=== PATIENT | male | born 1955 | race Caucasian/White ===

== ENCOUNTER → 2016-07-13 | Day surgery (SDC) | payer BC ==
[2016-07-02 07:36] VITALS: Ht 165.1 cm; Wt 100.0 kg
[~2016-07-13] VITALS: Ht 165.1 cm; Wt 100.0 kg
[~2016-07-13] MED LIST: AMLO-110 PO; ATOR-22 PO; ATROPINE SULFATE 0.1 MG/ML 5ML SYR IV PRN; EpHEDrine SULFATE INJ 50 MG/ML AMP IV PRN; IBUP-1050 PO; LIDOCAINE HCL 2% 2 ML VIAL (20MG/ML) ONE; LOSA1TAB38 PO; METF500T5 PO; PROAIR INH; PROPOFOL IV EMULSION 10 MG/ML 20 ML VIAL IV ONE
--- NOTE | 2016-07-13 14:49 | Endo History and Physical ---
History & Physical Date of Service: Jul 13, 2016. Chief Complaint: history of polyps Referring Physician: Dr Martinez History of Present Illness For colonoscopy Past Surgical History Hx Cardiac Surgery: Yes (HEART SURGERY A CHILD) Hx Internal Defibrillator: No Hx Pacemaker: No Hx Abdominal Surgery: No Hx of Implantable Prosthesis: No Hx Post-Op Nausea and Vomiting: No Hx Cancer Surgery: No Hx Thoracic Surgery: No Hx Orthopedic: Yes (RT CTR, RT ULNAR NERVE REPAIR) Hx Urinary Tract Surgery: No Family History Colon CA, Esophogeal CA Social History Smoking Status: Never Smoker Hx Substance Use: No Hx Alcohol Use: Yes (OCCASIONAL) Allergies Coded Allergies: No Known Allergies (Unverified , 07/02/16) Current Medications Reported Home Medications Medications Dose Route/Sig Max Daily Dose Days Date Category Advil (Ibuprofen) 200 Mg Tab 400-600 Mg PO Q6H PRN 07/02/16 Reported [Proair] 1-2 Puffs INH Q4-6 PRN 07/02/16 Reported Norvasc (Amlodipine Besylate) 5 Mg Tab 5 Mg PO QAM 07/02/16 Reported Lipitor (Atorvastatin Calcium) 20 Mg Tab 20 Mg PO HS 07/02/16 Reported Cozaar (Losartan Potassium) 100 Mg Tab 100 Mg PO QAM 07/02/16 Reported Glucophage Er (Metformin HCl) 500 Mg Tab 2 Tab PO BID 07/02/16 Reported Vital Signs Weight (Kilograms): 100 Height (Feet): 5 Height (Inches): 5 Date Time Temp Pulse Resp B/P Pulse Ox O2 Delivery O2 Flow Rate FiO2 07/13/16 14:29 36.3 76 18 134/81 97 Room Air Physical Exam General Appearance: + obese Respiratory/Chest: Respiratory effort: no dyspnea Cardiovascular: Heart Auscultation: RRR Abdomen: Inspection & Palpation: soft Assessment and Plan Hx of polyps for Colonoscopy
--- NOTE | 2016-07-13 15:05 | Discharge Instructions ---
Endoscopy Patient Instructions Date / Procedure(s) Performed Jul 13, 2016. Colonoscopy Allergy Information Coded Allergies: No Known Allergies (Unverified , 07/02/16) Discharge Date / Findings Jul 13, 2016. Normal colon Medication Instructions Restart Stopped Medication(s): resume meds Reported Home Medications Medications Dose Route/Sig Max Daily Dose Days Date Category Advil (Ibuprofen) 200 Mg Tab 400-600 Mg PO Q6H PRN 07/02/16 Reported [Proair] 1-2 Puffs INH Q4-6 PRN 07/02/16 Reported Norvasc (Amlodipine Besylate) 5 Mg Tab 5 Mg PO QAM 07/02/16 Reported Lipitor (Atorvastatin Calcium) 20 Mg Tab 20 Mg PO HS 07/02/16 Reported Cozaar (Losartan Potassium) 100 Mg Tab 100 Mg PO QAM 07/02/16 Reported Glucophage Er (Metformin HCl) 500 Mg Tab 2 Tab PO BID 07/02/16 Reported Provider Instructions Activity Restrictions - No exercising or heavy lifting for 24 hours. - Do not drink alcohol the day of the procedure. - Do not drive a car or operate machinery until the day after the procedure. - Do not make any important decisions or sign important papers in 24 hours after the procedure. Following Day: - Return to full activity which may include returning to work/school. Diet Start your diet with liquids and light foods (jello, soup, juice, toast). Then eat your usual diet if not nauseated. Treatment For Common After Affects For mild abdominal pain, bloating, or excessive gas: - Rest - Eat lightly - Lie on right side Follow-Up Information Follow-up with Dr Martinez as scheduled Anesthesia Information What You Should Know You have had a procedure that required some medicine to reduce anxiety and discomfort. This treatment is called moderate sedation. After receiving the treatment, you may be sleepy, but you will be able to breathe on your own. The effects of the treatment may last for several hours. Follow these instructions along with Activity/Diet recommendations noted above: * Do NOT do anything where dizziness or clumsiness would be dangerous. * Rest quietly at home today, then you can be up and about tomorrow. * Have a responsible person stay with you the rest of today. * You may have had an I.V. today. If so, you may take the dressing off later today. Recommendations Call your doctor if: * Trouble breathing * Continuous vomiting for more than 24 hours * Temperature above 101 degrees * Severe abdominal pain or bloating * Pain not relieved by pain medicine ordered * There is increased drainage or redness from any incision * A large amount of rectal bleeding greater than 2-3 tablespoons. (If you had a polyp/s removed or have hemorrhoids, a small amount of blood - from the rectum is to be expected.) * You have any unanswered questions or concerns. IN THE EVENT OF A SERIOUS EMERGENCY, GO TO THE NEAREST EMERGENCY ROOM Your discharge instructions were prepared by provider Thang Salinas. Patient Instructions Signature Page Michael Fink Patient (or Guardian) Signature/Date: I have read and understand the instructions given to me by my caregivers. Caregiver/RN/Doctor Signature/Date: The above-named patient and/or guardian has received patient instructions on this date. + Original Patient Signature Page (only) stays with chart. Please make copy for patient.
--- NOTE | 2016-07-13 15:10 | GI REPORT ---
Procedure Date: 07/13/2016 2:53 PM Procedure: Colonoscopy Indications: Personal history of colonic polyps Medicines: Propofol total dose 200 mg IV, Lidocaine 40 mg IV Complications: No immediate complications. Estimated Blood Loss: Estimated blood loss: none. Procedure: Pre-Anesthesia Assessment: - Prior to the procedure, a History and Physical was performed, and patient medications, allergies and sensitivities were reviewed. The patient's tolerance of previous anesthesia was reviewed. - The risks and benefits of the procedure and the sedation options and risks were discussed with the patient. All questions were answered and informed consent was obtained. After I obtained informed consent, the scope was passed under direct vision. Throughout the procedure, the patient's blood pressure, pulse, and oxygen saturations were monitored continuously. The scope was introduced through the anus and advanced to the cecum, identified by appendiceal orifice and ileocecal valve. The colonoscopy was performed without difficulty. The patient tolerated the procedure well. The quality of the bowel preparation was good. Findings: There was a medium-sized lipoma, 12 mm in diameter, in the ascending colon. Impression: - The entire examined colon is normal. - No specimens collected. - Medium-sized lipoma in the ascending colon. Recommendation: - Discharge patient to home (ambulatory). - Continue present medications. - Repeat colonoscopy in 5 years for surveillance. - Return to primary care physician PRN. Thang Salinas M.D. Thang Salinas MD 07/13/2016 3:09:23 PM This report has been signed electronically. Note Initiated On: 07/13/2016 2:53 PM
--- NOTE | 2016-07-13 15:14 | Anesthesiology Progress Note ---
Anesthesia Post Op Note Date & Time Jul 13, 2016 at 15:13 Vital Signs Pain Intensity: 0 Vital Signs Past 12 Hours Date Time Temp Pulse Resp B/P Pulse Ox O2 Delivery O2 Flow Rate FiO2 07/13/16 14:29 36.3 76 18 134/81 97 Room Air Notes Mental Status: alert / awake / arousable, participated in evaluation Pt Amnestic to Procedure: Yes Nausea / Vomiting: adequately controlled Pain: adequately controlled Airway Patency, RR, SpO2: stable & adequate BP & HR: stable & adequate Hydration State: stable & adequate Anesthetic Complications: no major complications apparent
[2016-07-13 15:29] VITALS: BP 110/67; PULSE 84; O2SAT 95
== END | disposition home or self-care (01) ==
LOC: C.GI 14:04
PROVIDERS: ATTEND Internal Medicine Gastroenterology
DX: Z86.010 Personal history of colon polyps (principal); D17.79 Benign lipomatous neoplasm of other sites; I10 Essential (primary) hypertension; J45.909 Unspecified asthma, uncomplicated; E78.5 Hyperlipidemia, unspecified; E11.9 Type 2 diabetes mellitus without complications; Z98.890 Other specified postprocedural states; Z80.0 Family history of malignant neoplasm of digestive organs; E66.9 Obesity, unspecified; Z68.42 Body mass index [BMI] 45.0-49.9, adult

== ENCOUNTER → 2016-07-16 | Outpatient (CLI) | payer BC ==
[~2016-07-16] MED LIST changes: -ATROPINE SULFATE 0.1 MG/ML 5ML SYR IV PRN; -EpHEDrine SULFATE INJ 50 MG/ML AMP IV PRN; -LIDOCAINE HCL 2% 2 ML VIAL (20MG/ML) ONE; -PROPOFOL IV EMULSION 10 MG/ML 20 ML VIAL IV ONE
--- NOTE | 2016-07-16 10:03 | DIAGNOSTIC IMAGING REPORT ---
TWO VIEW CHEST CLINICAL HISTORY: Cough. Abdominal swelling. FINDINGS: PA and lateral chest radiographs are compared to study dated 06/02/2012. The heart is top normal for projection. The mediastinal contour is within normal limits. Chronic interstitial thickening is similar to previous. Patchy airspace opacities are seen at the left lung base. No pleural effusion is identified. There is no pneumothorax. The skeletal structures are osteopenic. There are healed left-sided rib fractures. Degenerative change is noted throughout the thoracic spine. IMPRESSION: There are patchy airspace opacities at the left lung base. Correlate clinically for evidence of an infectious or inflammatory pneumonitis. Radiographic follow-up to resolution is recommended. Electronically signed by: Ok Barkley M.D. 07/16/2016 10:01 AM Dictated Date/Time: 07/16/2016 10:00 AM
--- NOTE | 2016-07-16 10:05 | DIAGNOSTIC IMAGING REPORT ---
ABDOMEN 2 VIEWS CLINICAL HISTORY: Cough, abdominal SWELLING pain. Edema. COMPARISON STUDY: No previous studies for comparison. FINDINGS: The soft tissues, psoas shadows, renal outlines and intestinal gas pattern appear normal. There is no evidence for bowel obstruction. There is no evidence for free intraperitoneal air. No abnormal abdominal calcifications are seen. 1.6 cm calcified splenic artery aneurysm IMPRESSION: No acute process. Electronically signed by: Shaheen Benitez M.D. 07/16/2016 10:03 AM Dictated Date/Time: 07/16/2016 10:02 AM
== END | disposition home or self-care (01) ==
LOC: C.RADBC 09:34
PROVIDERS: ATTEND Nurse Practitioner Adult Health
DX: R05 Cough (principal); R19.00 Intra-abdominal and pelvic swelling, mass and lump, unspecified site; R91.8 Other nonspecific abnormal finding of lung field

== ENCOUNTER → 2016-07-22 | Outpatient (CLI) | payer BC ==
--- NOTE | 2016-07-22 13:33 | DIAGNOSTIC IMAGING REPORT ---
Ultrasound spleen (SPLEEN) ABD [facility] CLINICAL HISTORY: I72.8 Splenic artery aneurysm See abdominal series with splenic a aneurysm TECHNIQUE: Real-time ultrasound COMPARISON STUDY: 07/16/2016 FINDINGS: Spleen is unremarkable and uniform. Has a maximum dimension of 10.5 cm. Aneurysm on plain film is not well seen. IMPRESSION: Nonvisualization of the aneurysm previously seen on plain film. Normal spleen by ultrasound Electronically signed by: Shaheen Benitez M.D. 07/22/2016 1:32 PM Dictated Date/Time: 07/22/2016 1:30 PM
== END | disposition home or self-care (01) ==
LOC: C.ULTR 12:36
PROVIDERS: ATTEND Nurse Practitioner Adult Health
DX: I72.8 Aneurysm of other specified arteries (principal)

== ENCOUNTER → 2016-07-27 | Outpatient (CLI) | payer BC ==
--- NOTE | 2016-07-27 14:05 | DIAGNOSTIC IMAGING REPORT ---
CHEST 2 VIEWS ROUTINE CLINICAL HISTORY: Pneumonitis. COMPARISON STUDY: Chest radiograph July 16, 2016. FINDINGS: Lung volumes are normal. There is no pneumothorax or pleural effusion. There is mild left lower lung interstitial thickening which is probably chronic. No consolidation is identified to suggest pneumonia. Cardiomediastinal silhouette is stable. There is no significant change since exam of June 10, 2012 IMPRESSION: No acute findings. No change in appearance of the chest since exam of June 10, 2012. Electronically signed by: Timothy Salinas M.D. 07/27/2016 2:04 PM Dictated Date/Time: 07/27/2016 2:02 PM
== END | disposition home or self-care (01) ==
LOC: C.RAD1850 13:50
PROVIDERS: ATTEND Nurse Practitioner Adult Health
DX: J18.9 Pneumonia, unspecified organism (principal)

== ENCOUNTER → 2016-08-27 | Outpatient (CLI) | payer BC ==
[~2016-08-27] MED LIST changes: +OPTIRAY 320 IV PRN
--- NOTE | 2016-08-27 12:46 | DIAGNOSTIC IMAGING REPORT ---
ABDOMEN CT WITH IV AND ORAL CONTRAST CT DOSE: 1201.66 mGycm HISTORY: Aneurysm I72.8 Splenic artery aneurysm [id number] TECHNIQUE: Multiaxial CT images of the abdomen was performed following the use of intravenous and oral contrast. COMPARISON STUDY: 08/29/2010 FINDINGS: Lung bases remain clear. Liver is uniform. Gallbladder is negative for distention. Kidneys enhance uniformly. The adrenal glands show minimal hyperplastic change. Spleen is uniform. There is a calcified splenic artery aneurysm unchanged from the prior study at 15 mm. It shows heavy peripheral calcification and is considered stable by CT criteria. Bowel pattern is considered nonobstructive. There is no significant abdominal adenopathy. IMPRESSION: 1. 1.5 cm splenic artery aneurysm unchanged from the prior study of 08/29/2010. 2. This is considered stable with no evidence for interval change. 3. Several small renal cysts. 4. Otherwise negative study abdomen Electronically signed by: Shaheen Benitez M.D. 08/27/2016 12:44 PM Dictated Date/Time: 08/27/2016 12:42 PM
== END | disposition home or self-care (01) ==
LOC: C.CTS 11:47
PROVIDERS: ATTEND Family Medicine
DX: I72.8 Aneurysm of other specified arteries (principal); N28.1 Cyst of kidney, acquired

== ENCOUNTER 2017-07-21 18:00 | Emergency (ER) | payer BC, OTHER ==
[~2017-07-21] VITALS: Ht 165.1 cm; Wt 108.0 kg
[~2017-07-21 18:00] MED LIST changes: -OPTIRAY 320 IV PRN
[2017-07-21 18:05] VITALS: TEMP 36.7; Ht 165.1 cm; Wt 108.0 kg
[2017-07-21] MEDS ORDERED: SODIUM CHLORIDE 0.9% 500ML 500 ML IV STA (18:16)
[2017-07-21] MEDS ORDERED: KETOROLAC TROMETHAMINE 30 MG/ML VIAL IV STA (18:16)
[2017-07-21] MEDS ORDERED: BENZONATATE 100MG CAP PO ONE (18:30)
[2017-07-21] MEDS ORDERED: ASPI81TA28 PO (18:35)
[2017-07-21] MEDS ORDERED: GUAI1TAB55 PO (18:38)
[2017-07-21 18:40] LABS: BASO % 0.3 %; BASO ABS # 0.02 K/uL (0-0.2); EOS % 3.9 %; EOS ABS # 0.23 K/uL (0-0.5); HEMOGLOBIN 14.8 g/dL (14.0-18.0); IG# 0.02 K/uL (0.00-0.02); LYMPH % 14.1 %; LYMPH ABS # 0.84 K/uL (1.2-3.4); MEAN CELL VOLUME 90.3 fL (80-100); MEAN CORPUSCULAR HEMOGLOBIN 31.1 pg (25-34); MEAN CORPUSCULAR HGB CONC 34.4 g/dl (32-36); MEAN PLATELET VOLUME 8.9 fL (7.4-10.4); MONO ABS # 0.71 K/uL (0.11-0.59); NEUT % 69.4 %; NEUT ABS # 4.12 K/uL (1.4-6.5); PLATELET COUNT 151 K/uL (130-400); RED CELL DISTRIBUTION WIDTH CV 12.6 % (11.5-14.5); RED CELL DISTRIBUTION WIDTH SD 41.9 fL (36.4-46.3); WHITE BLOOD COUNT 5.94 K/uL (4.8-10.8)
[2017-07-21 18:56] LABS: BLOOD UREA NITROGEN 16 mg/dl (7-18); CALCIUM 9.2 mg/dl (8.5-10.1); CARBON DIOXIDE 26 mmol/L (21-32); CREATININE 0.89 mg/dl (0.60-1.40); GLUCOSE 127 mg/dl (70-99); POTASSIUM 3.8 mmol/L (3.5-5.1); SODIUM 139 mmol/L (136-145)
[2017-07-21 19:06] LABS: INFLUENZA B ANTIGEN Neg for Influ B (NEG)
--- NOTE | 2017-07-21 19:28 | DIAGNOSTIC IMAGING REPORT ---
CHEST ONE VIEW PORTABLE HISTORY: Atypical Chest Pain COMPARISON: Chest 07/27/2016. FINDINGS: Left basilar interstitial thickening, unchanged. Old, healed left-sided rib fractures. No new focal lung consolidations. The lungs are otherwise clear. No pleural effusions. No pneumothorax. The heart is top normal in size. This remains unchanged. IMPRESSION: No significant change compared to the prior study. No acute process. Electronically signed by: Modesto White M.D. 07/21/2017 7:26 PM Dictated Date/Time: 07/21/2017 7:23 PM
[2017-07-21] MEDS ORDERED: LEVOFLOXACIN 250 MG TAB PO ONE (20:15)
[2017-07-21] MEDS ORDERED: LEVO1TAB35 PO (20:25)
[2017-07-21] MEDS ORDERED: BENZ100C18 PO (20:25)
[2017-07-21 20:33] VITALS: BP 140/88; PULSE 80; O2SAT 95
--- NOTE | 2017-07-21 23:38 | EMERGENCY ROOM VISIT NOTE ---
History Report prepared by Esthela: Mic Hernandez Under the Supervision of: Dr. Neeraj Tinoco D.O. First contact with patient: 18:08 Chief Complaint: FLU LIKE SX Stated Complaint: COUGH, PAINS IN LUNGS AND CHEST History of Present Illness The patient is a 61 year old male who presents to the Emergency Room with complaints of a worsening cough for the past 1-2 weeks. He states that he is additionally having left sided chest pain and right back pain with coughing for the past couple of weeks, though he states that he has no pain when he is not coughing. He notes that he is coughing up green mucous, and occasionally cough up "foamy stuff". The patient reports that his eyes are more watery than normal. He states that he has been taking Mucinex, and nothing has helped him. He has a history of a hernia, and he has some asthma. The patient states that he does not smoke. Pt denies headache, sore throat, ear pain, change in vision, fevers, shortness of breath, nausea, vomiting, diarrhea, pain with urination, and melena. Source of History: patient Onset: 1-2 weeks ago Position: other (global) Quality: other (cough) Timing: worsening Associated Symptoms: + chest pain, + back pain Note: Associated symptoms: Eyes are more watery. Review of Systems See HPI for pertinent positives & negatives. A total of 10 systems reviewed and were otherwise negative. Past Medical & Surgical Medical Problems: (1) Asthma (2) Hernia Family History FH: cancer Social History Smoking Status: Never Smoker Marital Status: single Housing Status: lives with family Occupation Status: employed Current/Historical Medications Scheduled Amlodipine (Norvasc), 5 MG PO QAM Aspirin (Aspirin Ec), 81 MG PO DAILY Atorvastatin (Lipitor), 20 MG PO HS Benzonatate (Tessalon Perles), 100 MG PO TID Guaifenesin Ext Rel (Mucinex Ext Rel), 600 MG PO Q12 Levofloxacin (Levaquin), 750 MG PO QD@08 Losartan Potassium (Cozaar), 100 MG PO QAM Metformin Hcl Er (Glucophage Er), 1,000 MG PO BID Scheduled PRN Ibuprofen (Advil), 400-600 MG PO Q6H PRN for Pain [Proair], 1-2 PUFFS INH Q4-6 PRN for SOB/Wheezing Allergies Coded Allergies: No Known Allergies (Unverified , 07/21/17) Physical Exam Vital Signs Date Time Temp Pulse Resp B/P (MAP) Pulse Ox O2 Delivery O2 Flow Rate FiO2 07/21/17 20:33 80 20 140/88 95 07/21/17 20:33 80 20 140/88 95 Room Air 07/21/17 19:00 78 20 144/79 96 Room Air 07/21/17 18:05 36.7 98 20 140/84 96 Room Air Physical Exam GENERAL: Sitting up in bed with a persistent dry cough, non-toxic, talking in full sentences. EYE EXAM: normal conjunctiva. OROPHARYNX: no exudate, no erythema, lips, buccal mucosa, and tongue normal and mucous membranes are moist NECK: supple, no nuchal rigidity, no adenopathy, non-tender LUNGS: Wheezing in the left lower lobe.. Normal chest wall mechanics HEART: no murmurs, S1 normal and S2 normal ABDOMEN: abdomen soft, non-tender, normo-active bowel sounds, no masses, no rebound or guarding. BACK: Back is symmetrical on inspection and there is no deformity, no midline tenderness, no CVA tenderness. SKIN: no rashes and no bruising UPPER EXTREMITIES: upper extremities are grossly normal. LOWER EXTREMITIES: No pitting edema. NEURO EXAM: Normal sensorium, cranial nerves II-XII grossly intact, normal speech, no gross weakness of arms, no gross weakness of legs. Medical Decision & Procedures ER Provider Diagnostic Interpretation: Radiology results as stated below per my review and the radiologist's interpretation: CHEST ONE VIEW PORTABLE HISTORY: Atypical Chest Pain COMPARISON: Chest 07/27/2016. FINDINGS: Left basilar interstitial thickening, unchanged. Old, healed left-sided rib fractures. No new focal lung consolidations. The lungs are otherwise clear. No pleural effusions. No pneumothorax. The heart is top normal in size. This remains unchanged. IMPRESSION: No significant change compared to the prior study. No acute process. Electronically signed by: Modesto White M.D. 07/21/2017 7:26 PM Dictated Date/Time: 07/21/2017 7:23 PM Laboratory Results 07/21/17 18:25 Red Blood Count 4.76, Mean Corpuscular Volume 90.3, Mean Corpuscular Hemoglobin 31.1, Mean Corpuscular Hemoglobin Concent 34.4, Mean Platelet Volume 8.9, Neutrophils (%) (Auto) 69.4, Lymphocytes (%) (Auto) 14.1, Monocytes (%) (Auto) 12.0, Eosinophils (%) (Auto) 3.9, Basophils (%) (Auto) 0.3, Neutrophils # (Auto ) 4.12, Lymphocytes # (Auto) 0.84, Monocytes # (Auto) 0.71, Eosinophils # (Auto ) 0.23, Basophils # (Auto) 0.02 07/21/17 18:25 Test 07/21/17 18:25 07/21/17 18:40 White Blood Count 5.94 K/uL (4.8-10.8) Red Blood Count 4.76 M/uL (4.7-6.1) Hemoglobin 14.8 g/dL (14.0-18.0) Hematocrit 43.0 % (42-52) Mean Corpuscular Volume 90.3 fL (80-100) Mean Corpuscular Hemoglobin 31.1 pg (25-34) Mean Corpuscular Hemoglobin Concent 34.4 g/dl (32-36) Platelet Count 151 K/uL (130-400) Mean Platelet Volume 8.9 fL (7.4-10.4) Neutrophils (%) (Auto) 69.4 % Lymphocytes (%) (Auto) 14.1 % Monocytes (%) (Auto) 12.0 % Eosinophils (%) (Auto) 3.9 % Basophils (%) (Auto) 0.3 % Neutrophils # (Auto) 4.12 K/uL (1.4-6.5) Lymphocytes # (Auto) 0.84 K/uL (1.2-3.4) Monocytes # (Auto) 0.71 K/uL (0.11-0.59) Eosinophils # (Auto) 0.23 K/uL (0-0.5) Basophils # (Auto) 0.02 K/uL (0-0.2) RDW Standard Deviation 41.9 fL (36.4-46.3) RDW Coefficient of Variation 12.6 % (11.5-14.5) Immature Granulocyte % (Auto) 0.3 % Immature Granulocyte # (Auto) 0.02 K/uL (0.00-0.02) D-Dimer 430 ug/L FEU (0-500) Anion Gap 8.0 mmol/L (3-11) Est Creatinine Clear Calc Drug Dose 98.8 ml/min Estimated GFR () 107.0 Estimated GFR (Non- 92.3 BUN/Creatinine Ratio 17.4 (10-20) Calcium Level 9.2 mg/dl (8.5-10.1) Troponin I < 0.015 ng/ml (0-0.045) Influenza Type A Antigen Neg for Influ A (NEG) Influenza Type B Antigen Neg for Influ B (NEG) Laboratory results per my review. Medications Administered Medications (Trade) Dose Ordered Sig/Soha Route Start Time Stop Time Status Last Admin Dose Admin Benzonatate (Tessalon Perles Cap) 100 mg NOW ONCE PO 07/21/17 18:30 07/21/17 18:31 DC 07/21/17 18:31 100 MG Sodium Chloride 500 ml @ 999 mls/hr Q31M STAT IV 07/21/17 18:16 07/21/17 18:46 DC 07/21/17 18:34 999 MLS/HR Ketorolac Tromethamine (Toradol Inj) 30 mg NOW STAT IV 07/21/17 18:16 07/21/17 18:20 DC 07/21/17 18:34 30 MG Levofloxacin (Levaquin Tab) 750 mg NOW ONCE PO 07/21/17 20:15 07/21/17 20:16 DC 07/21/17 20:27 750 MG ECG Indication: chest pain, back/shoulder pain Rate (beats per minute): 93 Rhythm: sinus rhythm Findings: nonspecific-ST abn (Lateral), other (Normal axis) Comparison ECG Date: no prior available Change: Patient's EKG interpreted by me. ED Course ED COURSE: Vital signs were reviewed and showed normal vitals The patients medical record was reviewed The above diagnostic studies were performed and reviewed. ED treatments and interventions as stated above. 1807: The patient was evaluated in room C10. A complete history and physical examination was performed. 1815: Toradol 30mg IV, Sodium Chloride 500 ml @ 999 mls/hr IV 183: Benzonatate 100mg PO 2015: Levaquin Tab 750mg PO 2017: Upon reevaluation, the patient is feeling better.I discussed my findings with the patient and he understands and agrees with the treatment plan. Based on the patients age, coexisting illnesses, exam and lab findings the decision to treat as an outpatient was made. The patient remained stable while under my care. The patient appeared well at the time of discharge. Medical Decision Differential diagnoses includes but is not limited to pneumonia, bronchitis, COPD/Asthma exacerbation, pneumothorax, pulmonary embolism, congestive heart failure, acute coronary syndrome. Patient is a [id number] male who presents to ER with a productive cough that has been present for the past 2 weeks associated with sinus congestion and pain with coughing. EKG showed nonspecific ST wave changes. Unable to find old. CBC along with BMP was unremarkable. Troponin was negative. Based on symptoms I do believe that this is consistent with a acute bronchitis. He was given Levaquin. I also gave him Tessalon Perles. I do not believe that this cardiac as he has no chest pain or significant shortness of breath. Patient was updated bedside and discharged follow-up with PCP as an outpatient. Discussed with Pt concerning signs and symptoms to watch out for. Pt was instructed to follow up with their PCP and discussed with the patient their option to return to the ED at anytime for persistent or worsening symptoms. The appropriate anticipatory guidance and out-patient management, including indications for return to the emergency department, were explained at length to the patient and understood. Medication Reconcilliation Current Medication List: was personally reviewed by me Blood Pressure Screening Patient's blood pressure: Normal blood pressure Impression Primary Impression: Acute bronchitis Scribe Attestation The scribe's documentation has been prepared under my direction and personally reviewed by me in its entirety. I confirm that the note above accurately reflects all work, treatment, procedures, and medical decision making performed by me. Departure Information Dispostion Home / Self-Care Prescriptions Benzonatate (TESSALON PERLES) 100 Mg Cap 100 MG PO TID, #30 CAP Prov: Neeraj Tinoco, DO 07/21/17 Levofloxacin (Levaquin) 750 Mg Tab 750 MG PO QD@08, #9 TAB Prov: Neeraj Tinoco, DO 07/21/17 Referrals Andrea Redmond M.D. (PCP) Forms HOME CARE DOCUMENTATION FORM, IMPORTANT VISIT INFORMATION Patient Instructions Bronchitis Acute, My [facility] Additional Instructions Please follow up with your primary care doctor with in the next 24 hours. Any worsening of your symptoms, please return to the ED immediately. This includes any fevers greater than 100.4, worsening pain, chest pain, shortness breath, persistent nausea, vomiting, unable to eat or drink, or any other concerning signs or symptoms from your standpoint. Please take Tylenol or Motrin as needed for muscle aches. Please take Tessalon Perles as needed for coughing. Please take antibiotics as prescribed. Problem Qualifiers Primary Impression: Acute bronchitis Bronchitis organism: unspecified organism Qualified Codes: J20.9 - Acute bronchitis, unspecified
== END 2017-07-21 20:35 | disposition home or self-care (01) ==
LOC: C.EDB 18:02 → C.EDC 20:35
DX: J20.9 Acute bronchitis, unspecified (principal); Z80.9 Family history of malignant neoplasm, unspecified; Z79.82 Long term (current) use of aspirin; Z79.899 Other long term (current) drug therapy

== ENCOUNTER 2017-09-11 18:19 | Emergency (ER) | payer OTHER ==
[~2017-09-11] VITALS: Ht 165.1 cm; Wt 107.9 kg
[~2017-09-11 18:19] MED LIST changes: +GUAI1TAB55 PO; +LEVO1TAB35 PO
[2017-09-11 18:22] VITALS: TEMP 36.6; Ht 165.1 cm; Wt 107.9 kg
[2017-09-11] MEDS ORDERED: ALBUT/IPRATROP 3MG/0.5MG NEB 3 ML VIAL INH STA (18:34)
[2017-09-11] MEDS ORDERED: ASPI81TA28 PO (18:35)
--- NOTE | 2017-09-11 18:44 | EMERGENCY ROOM VISIT NOTE ---
History Report prepared by Esthela: Ruben Wilkes Under the Supervision of: Dr. Ok Byrne M.D. First contact with patient: 18:25 Chief Complaint: CONGESTION Stated Complaint: CHEST CONGESTION,BACK PAIN,SHOULDER PAIN Nursing Triage Summary: Coughing, dx with bronchitis a while ago, on prednisone and something else he cant remember. History of Present Illness The patient is a 62 year old male who presents to the Emergency Room with complaints of worsening general cough for three days. He states that he came to the ED a few weeks ago and was diagnosed with bronchitis. He states that he was given Levaquin and improved. He notes that he began to develop similar symptoms again last week. He was seen by his PCP and was prescribed Prednisone for three days. He notes that he has been coughing with associated chest pain. He rates his pain an 8/10 in severity. He reports associated back pain and shortness of breath. He states that his left eye is bothering him. He notes the cough is non- productive but it feels wet. He denies any history of smoking. He has a history of pneumonia. He has been using an inhaler twice a day. He is regularly taking Metformin, Amlodipine, and Losartan. He denies any blood thinner use. The patient has been taking a ten day treatment of Doxycycline since September 07, 2017 Source of History: patient Onset: three days Position: other (general ) Symptom Intensity: 8/10 Quality: other (cough) Timing: worsening Associated Symptoms: + chest pain, + SOB, + back pain Note: Notes left eye discomfort. Review of Systems See HPI for pertinent positives & negatives. A total of 10 systems reviewed and were otherwise negative. Past Medical & Surgical Medical Problems: (1) Asthma (2) Hernia Family History FH: cancer Social History Smoking Status: Never Smoker Marital Status: single Housing Status: lives with family Occupation Status: employed Current/Historical Medications Scheduled Amlodipine (Norvasc), 2.5 MG PO QAM Aspirin (Aspirin Ec), 81 MG PO DAILY Atorvastatin (Lipitor), 20 MG PO HS Canagliflozin (Invokana), 100 MG PO DAILY Doxycycline Hyclate (Doxycycline Hyclate), 1 TAB PO BID Losartan Potassium (Cozaar), 100 MG PO QAM Metformin Hcl Er (Glucophage Er), 1,000 MG PO BID Prednisone (Prednisone), 20 MG PO UD Scheduled PRN Acetaminophen (Tylenol), 1,000 MG PO Q6 PRN for Pain or Fever [Proair], 1-2 PUFFS INH Q4-6 PRN for SOB/Wheezing Allergies Coded Allergies: No Known Allergies (Unverified , 07/21/17) Physical Exam Vital Signs Date Time Temp Pulse Resp B/P (MAP) Pulse Ox O2 Delivery O2 Flow Rate FiO2 09/11/17 19:28 97 15 128/77 94 09/11/17 19:21 96 Room Air 09/11/17 18:22 36.6 96 20 134/88 95 Room Air 09/11/17 18:22 95 Room Air Physical Exam GENERAL: Patient is in no acute distress. HEENT: No acute trauma, normocephalic atraumatic, mucous membranes moist, no nasal congestion, no scleral icterus. No throat erythema or exudate. NECK: No stridor, no adenopathy, no meningismus, trachea is midline. LUNGS: Dry cough noted, no respiratory distress, equal breath sounds. Breath sounds are somewhat diminished with wheezes bilaterally. HEART: Without murmurs gallops or rubs, regular rate and rhythm. ABDOMEN: Soft, nontender, bowel sounds positive, no hernias, no peritonitis. EXTREMITIES: No cyanosis or edema, full range of motion of all the joints without pain or difficulty, no signs for acute trauma. NEUROLOGIC: Oriented x 3, no acute motor or sensory deficits, no focal weakness. SKIN: No rash, no jaundice, no diaphoresis. Medical Decision & Procedures ER Provider Diagnostic Interpretation: Radiology results as stated below per my review and radiologist interpretation: SINGLE VIEW CHEST CLINICAL HISTORY: Cough and dyspnea. FINDINGS: An AP, portable, upright chest radiograph is compared to study dated 07/21/2017. The examination is degraded by portable technique, apical lordotic positioning, and patient rotation. The heart is enlarged and there is atherosclerotic calcification of the thoracic aorta. The pulmonary vasculature is noncongested. Chronic interstitial thickening is similar to previous. No airspace consolidation, large pleural effusion, or pneumothorax is seen. The skeletal structures are osteopenic. There are healed left-sided rib fractures. Degenerative changes noted in the thoracic spine. IMPRESSION: Cardiomegaly with no acute cardiopulmonary abnormality. Electronically signed by: Ok Barkley M.D. 09/11/2017 6:54 PM Dictated Date/Time: 09/11/2017 6:52 PM Medications Administered Medications (Trade) Dose Ordered Sig/Soha Route Start Time Stop Time Status Last Admin Dose Admin Albuterol/ Ipratropium (Duoneb) 3 ml NOW STAT INH 09/11/17 18:34 09/11/17 18:35 DC 09/11/17 18:45 3 ML Benzonatate (Tessalon Perles Cap) 100 mg NOW ONCE PO 09/11/17 18:45 09/11/17 18:46 DC 09/11/17 18:45 100 MG ECG Per My Interpretation Indication: chest pain Rate (beats per minute): 91 Rhythm: normal sinus Findings: no ectopy (No PVC), other (No ST elevation) Change: no significant change (when compared to 07/21/2017) ED Course 1826: The patient was evaluated in room B8. A complete history and physical exam was performed. 1833: Ordered DuoNeb 3 ml INH 1844: Ordered Benzonatate 100 mg PO 1914: I reassessed the patient at this time. His breathing has significantly improved. I discussed the results and treatment plan with the patient. I answered all pertaining questions that he had. He expressed understanding and verbalized agreement. The patient will be discharged home. Medical Decision The patient is a 62 year old male who presents to the ED with complaints of cough. Differential diagnoses considered include bronchitis, PNA, pharyngitis, sinusitis, CHF, coronary disease, musculoskeletal pain, and failed outpatient treatment. Patient presents with cough and congestion. On exam, there were some wheezes noted. He was not hypoxic, he was not febrile. He was found to be on doxycycline as prescribed by his family doctor's office. Chest film was done, there was no pneumonia, CHF or pneumothorax. EKG showed a normal sinus rhythm, no acute ischemia. The patient was given a DuoNeb, oral Tessalon. The patient will be discharged on Tessalon, he will increase his ProAir use to 2 or 3 puffs every 4 hours. Patient will continue the doxycycline as prescribed. Rest and hydration were encouraged. He was encouraged to return to this ER for worsening symptoms and to see his doctor in follow-up this upcoming week. He appears to have acute bronchitis with a flare of his asthma. Medication Reconcilliation Current Medication List: was personally reviewed by me Blood Pressure Screening Patient's blood pressure: Elevated blood pressure Blood pressure disposition: Elevated BP felt to be situational Impression Primary Impression: Acute bronchitis Additional Impression: Asthma exacerbation Scribe Attestation The scribe's documentation has been prepared under my direction and personally reviewed by me in its entirety. I confirm that the note above accurately reflects all work, treatment, procedures, and medical decision making performed by me. Departure Information Dispostion Home / Self-Care Referrals Amanda Rivas P.APedro (PCP) Forms HOME CARE DOCUMENTATION FORM, IMPORTANT VISIT INFORMATION Patient Instructions My [facility] Additional Instructions continue the doxycycline until all use the tessalon perles for cough as directed use your proair inhaler 2-3 puffs every 4 hours follow with itzel sawant this upcoming week return for worsening symptoms or if not improving chest film today was all ok Problem Qualifiers
[2017-09-11] MEDS ORDERED: BENZONATATE 100MG CAP PO ONE (18:45)
--- NOTE | 2017-09-11 18:55 | DIAGNOSTIC IMAGING REPORT ---
SINGLE VIEW CHEST CLINICAL HISTORY: Cough and dyspnea. FINDINGS: An AP, portable, upright chest radiograph is compared to study dated 07/21/2017. The examination is degraded by portable technique, apical lordotic positioning, and patient rotation. The heart is enlarged and there is atherosclerotic calcification of the thoracic aorta. The pulmonary vasculature is noncongested. Chronic interstitial thickening is similar to previous. No airspace consolidation, large pleural effusion, or pneumothorax is seen. The skeletal structures are osteopenic. There are healed left-sided rib fractures. Degenerative changes noted in the thoracic spine. IMPRESSION: Cardiomegaly with no acute cardiopulmonary abnormality. Electronically signed by: Ok Barkley M.D. 09/11/2017 6:54 PM Dictated Date/Time: 09/11/2017 6:52 PM
[2017-09-11 19:28] VITALS: BP 128/77; PULSE 97; O2SAT 94
[2017-09-11] MEDS ORDERED: DOXY100T PO (19:43)
[2017-09-11] MEDS ORDERED: ACET-1256 PO (19:43)
[2017-09-11] MEDS ORDERED: CANA1TAB PO (19:43)
[2017-09-11] MEDS ORDERED: PRED20TA PO (19:43)
== END 2017-09-11 19:29 | disposition home or self-care (01) ==
LOC: C.EDB 18:20
DX: J20.9 Acute bronchitis, unspecified (principal); J45.901 Unspecified asthma with (acute) exacerbation; E11.9 Type 2 diabetes mellitus without complications; Z79.4 Long term (current) use of insulin; Z79.82 Long term (current) use of aspirin

== ENCOUNTER 2018-11-17 21:38 | Inpatient (IN) ==
[2018-11-17] MEDS ORDERED: SODIUM CHLORIDE 0.9% 1000ML 500 ML IV ONE (21:54)
[2018-11-17] MEDS ORDERED: FAMOTIDINE 20MG/5ML IV PUSH IV STA (21:58)
--- NOTE | 2018-11-17 22:12 | Emergency Department Note ---
Entered by Rylan Osborne acting as a scribe for History of Present Illness General Chief complaint: Rectal Bleed Stated complaint: RECTAL BLEEDING Time Seen by Provider: 11/17/18 21:47 Source: patient Limitations: no limitations History of Present Illness Onset (ago): hour(s) 1 Location: buttocks Pain Consistency: + now resolved Maximum Pain Intensity: 0 Current Pain Intensity: 0 Quality: + sharp (abdominal pain) and + other (bright red blood) Associated symptoms: no nausea/vomiting The patient is a 63 year old male who presents to the Emergency Room with complaints of intermittent rectal bleeding starting an hour ago. The patient states he had some sharp pain in his abdomen and then went to the bathroom and saw chunks of blood in the toilet. He notes he went to the bathroom 3 times so far and had rectal bleeding each time. He states he is currently taking doxycycline. He denies current pain, lightheadedness, nausea, vomiting, taking blood thinners, and having rectal bleeding before. He states he has been doing a lot of heavy lifting. He notes he had a hernia before. He states he has been taking ibuprofen and Aleve. He notes his PCP is Dr. Andrea Redmond. Home Medications Home Medications Medication Instructions Recorded Confirmed Type aspirin 81 mg PO DAILY 11/17/18 11/17/18 History atorvastatin 20 mg PO DAILY 11/17/18 11/17/18 History empagliflozin [Jardiance] 10 mg PO DAILY 11/17/18 11/17/18 History losartan 100 mg PO DAILY 11/17/18 11/17/18 History metformin 1,000 mg PO BID 11/17/18 11/17/18 History Allergies Allergy/AdvReac Type Severity Reaction Status Date / Time No Known Allergies Allergy Unverified 11/17/18 23:59 Past Med/Surg History Medical History Diabetes History of colon polyps Hypertension Surgical History History of repair of patent ductus arteriosus Family History Other Family history non-contributory Social History Preferred Language: Maldivian Communication Ability: Effective Pressurizer Required: No Beliefs That Will Affect Care: None Current Living Situation: Family Current Living Situation Comment: son Feels Safe at Home: Yes Safety Concerns: Feels Safe At This Time Smoking Status: Never smoker Do You Dip or Chew Tobacco: No Hx Alcohol Use: Yes Alcohol type: beer Hx Substance Use: No Review of Systems See HPI for pertinent positives & negatives. and A total of 10 systems reviewed and were otherwise negative Physical Exam Vital Signs Vital Signs - 24 hr 11/17/18 21:41 11/17/18 22:19 11/17/18 22:22 Temperature 36.8 C Temperature Source Oral Sepsis Recent Fever Within 48 Hours Yes Sepsis Action Taken by Nursing No Action Required Pulse Rate 98 H 89 Pulse Rate [Apical] Pulse Rate from SpO2 Sensor 90 Respiratory Rate 18 19 Respiratory Effort / Characteristics Non-Labored Respiratory Depth Normal Respiratory Pattern Blood Pressure 113/73 91/55 L Blood Pressure [Left Arm] Blood Pressure Mean 86 67 Blood Pressure Mean [Left Arm] Pulse Oximetry 95 98 97 Oxygen Delivery Method Room Air Room Air 11/17/18 22:24 11/17/18 22:30 11/17/18 23:01 Temperature Temperature Source Sepsis Recent Fever Within 48 Hours Sepsis Action Taken by Nursing Pulse Rate 89 83 Pulse Rate [Apical] 82 Pulse Rate from SpO2 Sensor 89 83 Respiratory Rate 20 20 23 Respiratory Effort / Characteristics Non-Labored Spontaneous Respiratory Depth Normal Respiratory Pattern Regular Blood Pressure 104/66 Blood Pressure [Left Arm] 118/72 Blood Pressure Mean 78 Blood Pressure Mean [Left Arm] 87 Pulse Oximetry 96 95 98 Oxygen Delivery Method Room Air GENERAL: Patient is in no acute distress. HEENT: No acute trauma, normocephalic atraumatic, mucous membranes moist, no nasal congestion, no scleral icterus. NECK: No stridor, no adenopathy, no meningismus, trachea is midline. LUNGS: Clear to auscultation bilaterally, no wheeze, no rhonchi, breath sounds equal. HEART: Without murmurs gallops or rubs, regular rate and rhythm. ABDOMEN: Soft, nontender, bowel sounds positive, no peritonitis. Midline epigastric abdominal wall hernia that is easily reducible. RECTAL: No external source for bleeding. Bright red blood per digital exam. EXTREMITIES: No cyanosis or edema, full range of motion of all the joints without pain or difficulty, no signs for acute trauma. NEUROLOGIC: Oriented x 3, no acute motor or sensory deficits, no focal weakness. SKIN: No rash, no jaundice, no diaphoresis. Course 2150: The patient was evaluated in room C12B, and a complete history and physical examination were performed. 2251: I discussed the patient's case with Dr. Shala Dickinson - [facility]. She will evaluate the patient for further management. Administered Medications Sodium Chloride (Nss 1000ml) 1,000 mls @ 125 mls/hr IV .Q8H RAKAN Stop: 11/18/18 16:48 Last Admin: 11/18/18 01:04 Dose: 125 mls/hr Documented by: [id number] Insulin Aspart (Novolog Flexpen) 0 units SC Q6 ARKAN Stop: 12/18/18 01:14 Last Admin: 11/18/18 01:10 Dose: 1 units Documented by: [id number] Cosigned by: [id number] Ioversol (Optiray 320 100ml) 95 ml IV ONCE PRN PRN Reason: Interaction Checking Stop: 11/21/18 23:45 Last Admin: 11/17/18 23:46 Dose: 95 ml Documented by: [id number] Discontinued Medications Famotidine (Pepcid 20mg Iv Push) 20 mg IV ONE STA Stop: 11/17/18 21:59 Last Admin: 11/17/18 22:22 Dose: 20 mg Documented by: [id number] Sodium Chloride (Nss 1000ml) 500 mls @ 999 mls/hr IV .Q31M ONE Stop: 11/17/18 22:24 Last Infusion: 11/17/18 22:43 Dose: 0 mls/hr Documented by: [id number] Admin: 11/17/18 22:22 Dose: 999 mls/hr Documented by: [id number] Sodium Chloride (Nss 1000ml) 1,000 mls @ 999 mls/hr IV .Q1H1M ONE Stop: 11/17/18 23:36 Last Infusion: 11/17/18 23:44 Dose: 0 mls/hr Documented by: [id number] Admin: 11/17/18 22:43 Dose: 999 mls/hr Documented by: [id number] Medical Decision Making Differential Diagnosis Differential Diagnosis: Hemorrhoid, anal tear, anal fissure, diverticular bleeding, proctitis, intestinal mass, anemia, coagulopathy, C-Diff, and upper GI bleeding. Medical Records Attestation: I reviewed the patient's medical records. Home Medications Current Medication List: was personally reviewed by me Laboratory Data Attestation: I reviewed the patient's lab results. Result diagrams: 11/17/18 22:13 11/17/18 22:13 Lab Results 11/17/18 11/17/18 11/17/18 Range/Units 22:13 22:13 22:13 WBC 7.52 (4.8-10.8) K/uL RBC 4.18 L (4.7-6.1) M/uL Hgb 13.5 L (14.0-18.0) g/dL Hct 37.9 L (42-52) % MCV 90.7 (80-100) fL MCH 32.3 (25-34) pg MCHC 35.6 (32-36) g/dL RDW Std Deviation 42.9 (36.4-46.3) fL RDW Coeff of Donita 13.0 (11.5-14.5) % Plt Count 199 (130-400) K/uL MPV 9.0 (7.4-10.4) fL PT 10.9 (9.0-12.0) Seconds INR 1.1 (0.9-1.1) APTT 26.2 (21.0-31.0) Seconds PTT Ratio 1.0 Sodium 143 (136-145) mmol/L Potassium 3.9 (3.5-5.1) mmol/L Chloride 110 H (98-107) mmol/L Carbon Dioxide 24 (21-32) mmol/L Anion Gap 10.0 (3-11) BUN 21 H (7-18) mg/dl Creatinine 1.19 (0.6-1.4) mg/dl Est Cr Clr Drug Dosing Not Reportable Est GFR ( Amer) 74.9 Est GFR (Non-Af Amer) 64.6 BUN/Creatinine Ratio 17.9 (10-20) Glucose 283 H (70-99) mg/dl Calcium 9.2 (8.5-10.1) mg/dl Magnesium 2.1 (1.8-2.4) mg/dl Total Bilirubin 0.9 (0.2-1) mg/dl AST 23 (15-37) U/L ALT 31 (12-78) U/L Alkaline Phosphatase 71 (45-117) U/L Total Protein 6.5 (6.4-8.2) gm/dl Albumin 3.5 (3.4-5.0) gm/dl Globulin 3.0 (2.5-4.0) gm/dl Albumin/Globulin Ratio 1.2 (0.9-2) Blood Type Antibody Screen 11/17/18 Range/Units 22:13 WBC (4.8-10.8) K/uL RBC (4.7-6.1) M/uL Hgb (14.0-18.0) g/dL Hct (42-52) % MCV (80-100) fL MCH (25-34) pg MCHC (32-36) g/dL RDW Std Deviation (36.4-46.3) fL RDW Coeff of Donita (11.5-14.5) % Plt Count (130-400) K/uL MPV (7.4-10.4) fL PT (9.0-12.0) Seconds INR (0.9-1.1) APTT (21.0-31.0) Seconds PTT Ratio Sodium (136-145) mmol/L Potassium (3.5-5.1) mmol/L Chloride (98-107) mmol/L Carbon Dioxide (21-32) mmol/L Anion Gap (3-11) BUN (7-18) mg/dl Creatinine (0.6-1.4) mg/dl Est Cr Clr Drug Dosing Est GFR ( Amer) Est GFR (Non-Af Amer) BUN/Creatinine Ratio (10-20) Glucose (70-99) mg/dl Calcium (8.5-10.1) mg/dl Magnesium (1.8-2.4) mg/dl Total Bilirubin (0.2-1) mg/dl AST (15-37) U/L ALT (12-78) U/L Alkaline Phosphatase (45-117) U/L Total Protein (6.4-8.2) gm/dl Albumin (3.4-5.0) gm/dl Globulin (2.5-4.0) gm/dl Albumin/Globulin Ratio (0.9-2) Blood Type A Positive Antibody Screen NEGATIVE Imaging Data Radiologist's Impression: Radiology results as stated below per my review and the radiologist's interpretation: CT ABDOMEN & PELVIS With Contrast: Normal appendix, nonobstructing left renal stones, no bowel obstruction or wall thickening. No diverticulitis Radiologist: Sebastián Yuen MD Study ready at 23:47 and initial results transmitted at 23:51 Blood Pressure Blood Pressure Findings: Normal blood pressure Blood Pressure Disposition: further management by hospitalist AMY Narrative There is no leukocytosis. The patient is slightly anemic with a hemoglobin of 13.5. He has a normal platelet count. There is no coagulopathy. No sig nificant electrolyte abnormality except for a moderately elevated glucose. No evidence for elevation to the LFTs. Blood type was O+. EKG showed a ventricular pacemaker. Abdominal and pelvis CT did not show any obvious source for bleeding. No mass seen. Patient had several bloody bowel movements while here in the ED. On my exam, he did not have an external source for bleeding, he was bleeding from within the GI tract. The patient received IV Pepcid, IV saline--he received 1500 cc of saline. 2 IVs were initiated. I spoke to the patient and his family. Given the heavy GI bleeding, I do think a hospital stay is warranted. The bleeding is likely from a lower GI source, possibly diverticular in origin. Patient will need his hemoglobin trended. Patient may need a colonoscopy. I spoke with the director of casework, the on-call hospitalist was consulted. Impression & Plan GI bleed, Dizziness, BRBPR (bright red blood per rectum), Anemia Discharge Plan Visit Data *Final* Discharge Date/Time: 11/18/18 00:15 Chief Complaint: Rectal Bleed Stated Complaint: RECTAL BLEEDING ED Provider: Ok Byrne Discharge Problem: GI bleed, Dizziness, BRBPR (bright red blood per rectum), Anemia Patient Disposition: Admitted As Inpatient Discharge Instructions Interventions: ED Discharge Assessment Last Done: 11/18/18 00:15 Discharge Problem: GI bleed Qualifiers: GI bleed type/associated pathology: unspecified gastrointestinal hemorrhage type Qualified Code(s): K92.2 - Gastrointestinal hemorrhage, unspecified Anemia Qualifiers: Anemia type: unspecified type Qualified Code(s): D64.9 - Anemia, unspecified The carleneibe's documentation has been prepared under my direction and personally reviewed by me in its entirety. I confirm that the note above accurately reflects all work, treatment, procedures, and medical decision making performed by me.
[2018-11-17 22:22] LABS: Hematocrit (blood only) 37.9 % (42-52); Hemoglobin 13.5 g/dL (14.0-18.0); Mean Corpuscular Hgb Conc 35.6 g/dL (32-36); Mean Corpuscular Volume 90.7 fL (80-100); Platelet Count 199 K/uL (130-400); RDW Standard Deviation 42.9 fL (36.4-46.3); Red Blood Count 4.18 M/uL (4.7-6.1); White Blood Count 7.52 K/uL (4.8-10.8)
[2018-11-17 22:33] LABS: INR 1.1 (0.9-1.1); Partial Thromboplastin Time 26.2 Seconds (21.0-31.0); Prothrombin Time 10.9 Seconds (9.0-12.0)
[2018-11-17] MEDS ORDERED: SODIUM CHLORIDE 0.9% 1000ML 1,000 ML IV ONE (22:36)
[2018-11-17 22:39] LABS: Alanine Aminotransferase 31 U/L (12-78); Albumin Level 3.5 gm/dl (3.4-5.0); Aspartate Aminotransferase 23 U/L (15-37); BUN Creatinine Ratio 17.9 (10-20); Blood Urea Nitrogen 21 mg/dl (7-18); Calcium 9.2 mg/dl (8.5-10.1); Carbon Dioxide 24 mmol/L (21-32); Chloride 110 mmol/L (98-107); Est GFR (African American) 74.9; Est GFR (Non-African American) 64.6; Glucose 283 mg/dl (70-99); Magnesium 2.1 mg/dl (1.8-2.4); Potassium 3.9 mmol/L (3.5-5.1); Sodium 143 mmol/L (136-145)
[2018-11-17 22:42] LABS: Albumin Globulin Ratio 1.2 (0.9-2); Alkaline Phosphatase 71 U/L (45-117); Bilirubin,Total 0.9 mg/dl (0.2-1); Total Protein 6.5 gm/dl (6.4-8.2)
--- NOTE | 2018-11-17 23:40 | History & Physical Report ---
Date of Service November 17, 2018 Assessment & Plan (1) GI bleed: Patient hemodynamically stable, H/H appropriate, had witnessed bright red bloody BM in ER. Most likely lower GI source, however, patient with history of chronic NSAID use and mildly elevated BUN, upper source to be considered. -Admit to PCU -Maintain 2 large bore PIVs -Hold ASA and BP medications -CBC q 8 hours - transfuses for active bleed, symptomatic anemia or Hg < 7 -Pepcid 20mg IV daily -GI consult -appreciate assistance Present on Admission?: Yes (2) Hypertension: Stable blood pressure -Hold antihypertensive agents in setting of acute bleed -Continue to monitor BP Present on Admission?: Yes (3) Diabetes: Elevated blood sugar at present at 283 -Check AIC -ISS -NPO for now in setting of acute bleed Present on Admission?: Yes (4) Dyslipidemia: Chronic -Continue Atorvastatin F/E/N - NSS at 125mL/hr x 2 liters, electrolytes WNL, NPO for now Ppx - SCDs to bilateral LE Code - FULL Dispo - Admit to PCU History of Present Illness Chief Complaint: lower GI bleed Primary Care Provider: Amanda Rivas PA-C Mr. Fink is a 63yo C male with history of DM, HTN and HLP presenting with lower GI bleed. Reports driving home from work this evening when he developed sharp, crampy lower abdominal pain. When he arrived home he had a large, bloody bowel movement. He ate dinner then had two additional bloody bowel movements. On arrival to the ER patient afebrile, hemodynamically stable. He had an additional bloody bowel movement in the ER. Patient with no complaints at present. Denies abdominal pain. Social EtOH use, he does use Aleve regularly, 2 pills in the AM and2 in the evening. 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 History of fatty liver disease. ER Course: Pepcid 20mg IV, NSS Allergies Allergy/AdvReac Type Severity Reaction Status Date / Time No Known Allergies Allergy Unverified 07/21/17 18:34 Home Medications Home Medications Medication Instructions Recorded Confirmed Type ATORVASTATIN (LIPITOR) 20 mg PO HS #0 07/02/16 History Amlodipine (Norvasc) 2.5 mg PO QAM #0 07/02/16 History LOSARTAN POTASSIUM (COZAAR) 100 mg PO QAM #0 07/02/16 History METFORMIN HCL ER (GLUCOPHAGE ER) 1,000 mg PO BID #0 07/02/16 History PROAIR 1 - 2 puff INHALATION Q4-6 PRN #0 07/02/16 History ASPIRIN (ASPIRIN EC) 81 mg PO DAILY #0 07/21/17 History Acetaminophen (Tylenol) 1,000 mg PO Q6 PRN #0 tab 09/11/17 History CANAGLIFLOZIN (INVOKANA) 100 mg PO DAILY #0 09/11/17 History DOXYCYCLINE HYCLATE 1 tab PO BID 10 Days #20 tab 09/11/17 History Prednisone 20 mg PO UD #0 tab 09/11/17 History Past Med/Surg History Medical History Diabetes History of colon polyps Hypertension Surgical History History of repair of patent ductus arteriosus Family History Other Family history non-contributory Social History Preferred Language: Syriac Feels Safe at Home: Yes Smoking Status: Never smoker Hx Alcohol Use: No Hx Substance Use: No Review of Systems Review of Systems: All systems reviewed & are unremarkable except as noted in HPI & below Physical Exam Physical Exam: General: patient resting comfortably, NAD, non-toxic in appearance, AA&O x 4 Skin: warm, dry, intact, no rashes or lesions HEENT: NC/AT, PERRL, EOMI, anicteric sclera, conjunctiva without injection, external ear normal to inspection and nontender, nares patent, moist mucus membranes, dentition intact, no oropharyngeal lesions, neck supple, trachea midline, no LAD, no thyromegaly, no JVD Heart: +S1/S2, regular, no m/r/g Lungs: equal air entry bilaterally, no rales/rhonchi/wheezes Abd: +BS, soft, NT/ND, no masses/organomegaly/ascites Ext: warm, 2+ pulses in UE/LE bilaterally, no clubbing/cyanosis or edema Neuro: nonfocal, patient AA&O x 4, speech intact, no facial droop, moving all extremities on command with equal strength 5/5 Results & Data Vital Signs (Past 12 Hours) Vital Signs Temp Pulse Pulse Resp BP BP Pulse Ox 11/17/18 23:01 82 23 118/72 98 11/17/18 22:30 83 20 104/66 95 11/17/18 22:24 89 20 96 11/17/18 22:22 89 19 91/55 L 97 11/17/18 22:19 98 11/17/18 21:41 36.8 C 98 H 18 113/73 95 Laboratory Results Lab Results 11/17/18 11/17/18 11/17/18 Range/Units 22:13 22:13 22:13 WBC 7.52 (4.8-10.8) K/uL RBC 4.18 L (4.7-6.1) M/uL Hgb 13.5 L (14.0-18.0) g/dL Hct 37.9 L (42-52) % MCV 90.7 (80-100) fL MCH 32.3 (25-34) pg MCHC 35.6 (32-36) g/dL RDW Std Deviation 42.9 (36.4-46.3) fL RDW Coeff of Donita 13.0 (11.5-14.5) % Plt Count 199 (130-400) K/uL MPV 9.0 (7.4-10.4) fL PT 10.9 (9.0-12.0) Seconds INR 1.1 (0.9-1.1) APTT 26.2 (21.0-31.0) Seconds PTT Ratio 1.0 Sodium 143 (136-145) mmol/L Potassium 3.9 (3.5-5.1) mmol/L Chloride 110 H (98-107) mmol/L Carbon Dioxide 24 (21-32) mmol/L Anion Gap 10.0 (3-11) BUN 21 H (7-18) mg/dl Creatinine 1.19 (0.6-1.4) mg/dl Est Cr Clr Drug Dosing Not Reportable Est GFR ( Amer) 74.9 Est GFR (Non-Af Amer) 64.6 BUN/Creatinine Ratio 17.9 (10-20) Glucose 283 H (70-99) mg/dl Calcium 9.2 (8.5-10.1) mg/dl Magnesium 2.1 (1.8-2.4) mg/dl Total Bilirubin 0.9 (0.2-1) mg/dl AST 23 (15-37) U/L ALT 31 (12-78) U/L Alkaline Phosphatase 71 (45-117) U/L Total Protein 6.5 (6.4-8.2) gm/dl Albumin 3.5 (3.4-5.0) gm/dl Globulin 3.0 (2.5-4.0) gm/dl Albumin/Globulin Ratio 1.2 (0.9-2) Blood Type Antibody Screen 11/17/18 Range/Units 22:13 WBC (4.8-10.8) K/uL RBC (4.7-6.1) M/uL Hgb (14.0-18.0) g/dL Hct (42-52) % MCV (80-100) fL MCH (25-34) pg MCHC (32-36) g/dL RDW Std Deviation (36.4-46.3) fL RDW Coeff of Donita (11.5-14.5) % Plt Count (130-400) K/uL MPV (7.4-10.4) fL PT (9.0-12.0) Seconds INR (0.9-1.1) APTT (21.0-31.0) Seconds PTT Ratio Sodium (136-145) mmol/L Potassium (3.5-5.1) mmol/L Chloride (98-107) mmol/L Carbon Dioxide (21-32) mmol/L Anion Gap (3-11) BUN (7-18) mg/dl Creatinine (0.6-1.4) mg/dl Est Cr Clr Drug Dosing Est GFR ( Amer) Est GFR (Non-Af Amer) BUN/Creatinine Ratio (10-20) Glucose (70-99) mg/dl Calcium (8.5-10.1) mg/dl Magnesium (1.8-2.4) mg/dl Total Bilirubin (0.2-1) mg/dl AST (15-37) U/L ALT (12-78) U/L Alkaline Phosphatase (45-117) U/L Total Protein (6.4-8.2) gm/dl Albumin (3.4-5.0) gm/dl Globulin (2.5-4.0) gm/dl Albumin/Globulin Ratio (0.9-2) Blood Type A Positive Antibody Screen NEGATIVE Code Status & VTE Plan Code Status Full VTE Prophylaxis Plan VTE Prophylaxis will be ordered: Yes (1) GI bleed GI bleed type/associated pathology: unspecified gastrointestinal hemorrhage type Qualified Code(s): K92.2 - Gastrointestinal hemorrhage, unspecified (2) Hypertension Hypertension type: essential hypertension Qualified Code(s): I10 - Essential (primary) hypertension (3) Diabetes Diabetes mellitus type: type 2 Diabetes mellitus ocean transportation intermediary insulin use: without halfway use Diabetes mellitus complication status: without complication Qualified Code(s): E11.9 - Type 2 diabetes mellitus without complications
[2018-11-17] MEDS ORDERED: IOVERSOL 100ml IV PRN (23:46)
[2018-11-18] MEDS ORDERED: GLUCOSE 10 TABS/TUBE PO PRN (00:49)
[2018-11-18] MEDS ORDERED: DEXTROSE 50% 50 ML SYRINGE IV PRN (00:49)
[2018-11-18] MEDS ORDERED: ONDANSETRON INJ 2 MG/ML 2 ML VIAL IV PRN (00:49)
[2018-11-18] MEDS ORDERED: SODIUM CHLORIDE 0.9% 1000ML 1,000 ML IV SCH (00:49)
[2018-11-18] MEDS ORDERED: GLUCOSE 40% GEL 15 GM TUBE PO PRN (00:49)
[2018-11-18] MEDS ORDERED: CARBOHYDRATES FOR HYPOGLYCEMIA PO PRN (00:49)
[2018-11-18] MEDS ORDERED: GLUCAGON FOR INJ 1 MG VIAL SQ PRN (00:49)
[2018-11-18] MEDS ORDERED: ACETAMINOPHEN 325 MG TAB PO PRN (00:49)
[2018-11-18] MEDS: INSULIN ASPART 100 UNITS/ML 3 ML PEN SC SCH ×4 (01:10→17:22)
[2018-11-18 06:25] LABS: Basophils # (auto) 0.03 K/uL (0-0.2); Basophils % (auto) 0.5 %; Eosinophils # (auto) 0.22 K/uL (0-0.5); Eosinophils % (auto) 3.5 %; Hematocrit (blood only) 34.5 % (42-52); Hemoglobin 11.4 g/dL (14.0-18.0); Immature Granulocytes # (auto) 0.02 K/uL (0.00-0.02); Immature Granulocytes % (auto) 0.3 %; Lymphocytes # (auto) 1.22 K/uL (1.2-3.4); Lymphocytes % (auto) 19.3 %; Mean Corpuscular Volume 91.5 fL (80-100); Monocytes # (auto) 0.58 K/uL (0.11-0.59); Monocytes % (auto) 9.2 %; Neutrophils # (auto) 4.24 K/uL (1.4-6.5); Neutrophils % (auto) 67.2 %; Platelet Count 187 K/uL (130-400); RDW Coefficient of Variation 13.2 % (11.5-14.5); RDW Standard Deviation 43.9 fL (36.4-46.3); Red Blood Count 3.77 M/uL (4.7-6.1); White Blood Count 6.31 K/uL (4.8-10.8)
[2018-11-18 06:39] LABS: Estimated Average Glucose 169 mg/dl; Hemoglobin A1C 7.5 % (4.5-5.6)
[2018-11-18 06:54] LABS: BUN Creatinine Ratio 31.6 (10-20); Calcium 8.4 mg/dl (8.5-10.1); Creatinine Clr Calc Pharmacy 97.4 ml/min; Est GFR (African American) 107.5; Est GFR (Non-African American) 92.7; Potassium 4.3 mmol/L (3.5-5.1)
--- NOTE | 2018-11-18 07:24 | CT Scan Report ---
CT OF THE ABDOMEN AND PELVIS WITH CONTRAST CLINICAL HISTORY: Rectal bleeding. COMPARISON STUDY: CT of the abdomen and pelvis August 29, 2010. CT of the abdomen August 27, 2006. TECHNIQUE: Following IV administration of 95 mL of Optiray-320, axial images of the abdomen and pelvi s were obtained from the lung bases to the proximal femurs. Images were reviewed in the axial, sagitt al, and coronal planes. IV contrast was administered without complication. Automated exposure contro l was utilized for the study. A dose lowering technique was utilized adhering to the principles of A SHELDON. CT DOSE: 1401.01 mGy.cm FINDINGS: A 2 cm peripherally calcified splenic artery aneurysm is unchanged since CT of August 29 11. There is probable fatty infiltration of the liver. The spleen and pancreas are unremarkable. Adre nal nodularity is unchanged. There is no peripancreatic or pericholecystic infiltration. There is no biliary or pancreatic ductal dilatation. No pneumatosis, free air or portal venous gas is present. Th ere is colonic diverticulosis without evidence for acute diverticulitis. The appendix is normal. Sens itivity for detection of mucosal lesions is diminished given CT technique but none are identified. Th ere is no ascites. There are no suspicious osseous lesions. Fat-containing left inguinal hernia is no emir. There is a cyst arising from the lower pole of the left kidney. Bilateral renal calculi measure up to 5 mm. There are no ureteral calculi. There is no hydronephrosis. IMPRESSION: 1. Colonic diverticulosis without evidence for acute diverticulitis. No bowel obstruction. Decreased sensitivity for detection mucosal lesions given CT technique. 2. Bilateral nephrolithiasis. No ureteral calculi. 3. No change in size of a 2 cm peripherally calcified splenic artery aneurysm since CT of August 29 011. Electronically signed by: Timothy Salinas M.D. 11/18/2018 7:23 AM
[2018-11-18] MEDS ORDERED: LACTATED RINGER'S 1,000 ML IV SCH (08:45)
[2018-11-18] MEDS ORDERED: FAMOTIDINE 20 MG in SYRINGE 3 ML IV SCH (09:00)
[2018-11-18] MEDS: ATORVASTATIN 20 MG TAB PO SCH (09:22)
--- NOTE | 2018-11-18 09:46 | Anesthesiology Consultation ---
Date of Service November 18, 2018 Assessment & Plan (1) Encounter for pre-operative examination: Chart Review Chart Review: Acceptable Risk for Surgery Consults Requested none ASA ASA3 Proposed Anesthesia Anesthesia Type: MAC Risk / Benefits Reviewed With: PT / POA / Parent / Guardian, Accepts Plan and Informed Consent Obtained History Surgery Operation Date: 11/18/18 09:00 Proposed Procedures p Esophagogastroduodenoscopy Dr Naveed Lucio Height/Weight Height: 5 ft 5 in Weight: 101.2 kg Allergies Allergy/AdvReac Type Severity Reaction Status Date / Time No Known Allergies Allergy Unverified 11/17/18 23:59 Medications Home Medications Medication Instructions Recorded Confirmed Last Taken aspirin 81 mg PO DAILY 11/17/18 11/17/18 Unknown atorvastatin 20 mg PO DAILY 11/17/18 11/17/18 Unknown empagliflozin [Jardiance] 10 mg PO DAILY 11/17/18 11/17/18 Unknown losartan 100 mg PO DAILY 11/17/18 11/17/18 Unknown metformin 1,000 mg PO BID 11/17/18 11/17/18 Unknown Active Medications Generic Name Dose Route Start Last Admin Trade Name Freq PRN Reason Stop Dose Admin Acetaminophen 650 mg 11/18/18 00:49 11/18/18 09:29 Tylenol PO 12/18/18 00:48 650 mg Q4H PRN Administration Pain or Fever Atorvastatin Calcium 20 mg 11/18/18 09:00 11/18/18 09:22 Lipitor PO 12/18/18 08:59 20 mg DAILY RAKAN Administration Famotidine 20 mg/ Syringe 5 mls @ 2.5 mls/min 11/18/18 09:00 11/18/18 09:30 IV 12/18/18 08:59 2.5 mls/min DAILY RAKAN Administration Lactated Ringer's 1,000 mls @ 100 mls/hr 11/18/18 08:45 11/18/18 09:30 Lr IV 12/18/18 08:44 100 mls/hr .Q10H RAKAN Administration Insulin Aspart 0 units 11/18/18 01:15 11/18/18 06:11 Novolog Flexpen SC 12/18/18 01:14 Not Given Q6 RAKAN Ioversol 95 ml 11/17/18 23:46 11/17/18 23:46 Optiray 320 100ml IV 11/21/18 23:45 95 ml ONCE PRN Administration Interaction Checking NPO Date Last Intake of Fluids: 11/18/18 Time Last Intake of Fluids: 10:30 Date Last Intake of Solids: 11/17/18 Time Last Intake of Solids: 20:00 Past Medical History Medical History Diabetes History of colon polyps Hypertension Sleep apnea Exercise / Class Metabolic Activity II 4-5 Yardwork/Stairs/Walk up hill Past Family History Family History Other Family history non-contributory Past Surgical History Surgical History History of repair of patent ductus arteriosus S/P carpal tunnel release S/P decompression of ulnar nerve Past Anesthesia History No Hx of Anesthesia Complications and No Family Hx of Anesthesia Complications History of PONV No Hx of PONV and No Hx of Motion Sickness Social History Smoking Status: Never smoker Do You Dip or Chew Tobacco: No Hx Alcohol Use: Yes Alcohol type: beer alcohol intake frequency: holidays/special occasions only Alcohol Intake Frequency Comment: socially Hx Substance Use: No Physical Exam Vital Signs Last Vital Signs Temp 97.7 F 11/18/18 12:35 Pulse 72 11/18/18 12:35 Resp 18 11/18/18 12:35 BP 127/73 11/18/18 12:35 Pulse Ox 95 11/18/18 12:35 ENMT Mouth: no dentition abnormality Thyromental Distance: > or= 3.5 Finger Breadths Mallampati Class: III Neck normal visual inspection Respiratory normal respiratory effort Auscultation: lungs clear to auscultation bilaterally Cardiovascular Rate/Rhythm: regular rate and regular rhythm Testing Laboratory Results 11/18/18 06:01 11/18/18 06:01 11/17/18 11/17/18 11/18/18 22:13 22:13 06:01 PT 10.9 INR 1.1 APTT 26.2 Hemoglobin A1c 7.5 H Blood Type A Positive Antibody Screen NEGATIVE Electrocardiogram Date: 09/11/17 Normal sinus rhythm, rate 91 bpm Normal ECG When compared with ECG of 21-JUL-2017 18:25, No significant change was found Confirmed by KJ TENORIO ([id number]) on 09/12/2017 12:18:11 PM
[2018-11-18] MEDS ORDERED: LIDOCAINE HCL 2% 2 ML VIAL/AMP(20MG/ML) INFIL ONE (13:12)
[2018-11-18] MEDS ORDERED: PROPOFOL IV EMULSION 10 MG/ML 20 ML VIAL IV ONE (13:12)
--- NOTE | 2018-11-18 13:15 | Gastrointestinal Consultation ---
Date of Consultation November 18, 2018 Assessment & Plan (1) GI bleed: Could be LGI bleed such as diverticular but because of elevated BUN and use of ASA and Aleve will do EGD to rule out UGI bleed with rapid transit. Proc and risks explained which include but not limited to med reaction, bleeding, perforation, aspiration. Acute blood loss anemia--follow and transfuse prn colon diverticulosis fatty liver--LFTs normal History of Present Illness Reason for Consultation: GI bleeding Requesting Physician: Dr Deloris Dickinson Attending Physician: Maxwell Cantor History of Present Illness CC GI bleeding HPI Reviewed [facility] and no GI OV. Did note Dr Salinas did colonoscopy 06/2016 for hx of polyps and found AC lipoma. The patient does take Aleve and ASA. Pt last night developed lower abd pain followed by saul red bleeding. CT a/p showed diverticulosis and fatty liver. Pt had darker bm earlier this am but dark and light red at 1130. NO further abd pain. LFTS nl, BUN elevated, coags normal. Hgb 07/2017 14.8 on admit 13.5 and 11.4 this am. Pt unclear if he had EGD in past. Fhx noncontributory Allergies Allergy/AdvReac Type Severity Reaction Status Date / Time No Known Allergies Allergy Unverified 11/17/18 23:59 Home Medications Home Medications Medication Instructions Recorded Confirmed Type aspirin 81 mg PO DAILY 11/17/18 11/17/18 History atorvastatin 20 mg PO DAILY 11/17/18 11/17/18 History empagliflozin [Jardiance] 10 mg PO DAILY 11/17/18 11/17/18 History losartan 100 mg PO DAILY 11/17/18 11/17/18 History metformin 1,000 mg PO BID 11/17/18 11/17/18 History Patient History Medical History Diabetes History of colon polyps Hypertension Surgical History History of repair of patent ductus arteriosus S/P carpal tunnel release S/P decompression of ulnar nerve Family History Other Family history non-contributory Social History Preferred Language: Bulgarian Communication Ability: Effective Independent Beauty Consultant Required: No Beliefs That Will Affect Care: None Current Living Situation: Family Current Living Situation Comment: son Feels Safe at Home: Yes Safety Concerns: Feels Safe At This Time Smoking Status: Never smoker Do You Dip or Chew Tobacco: No Hx Alcohol Use: Yes Alcohol type: beer Hx Substance Use: No Physical Exam Constitutional: WD/WN, vitals as above Eyes: PERRL, conjunctivae normal, anicteric sclerae ENMT: external ear and nose normal, oropharynx normal Neck: normal visual inspection and trachea midline Respiratory: normal respiratory effort, lungs clear to auscultation Cardiovascular: RRR, no murmur, no edema Gastrointestinal (Abdomen): normal bowel sounds, soft, nontender, no hepatosplenomegaly Skin: normal turgor Neurologic: PERRL, EOMI, accommodation nl, no face palsy, no dysarthria Psychiatric: A+Ox3, euthymic affect Results & Data Vital Signs (Past 12 Hours) Vital Signs Temp Pulse Resp BP BP Pulse Ox 11/18/18 12:35 36.5 C 72 18 127/73 95 11/18/18 07:38 36.5 C 76 20 111/75 94 11/18/18 04:07 36.6 C 80 18 99/59 L 95 (1) GI bleed GI bleed type/associated pathology: unspecified gastrointestinal hemorrhage type Qualified Code(s): K92.2 - Gastrointestinal hemorrhage, unspecified
[2018-11-18] MEDS ORDERED: POLYETHYLENE (MIRALAX) 17 GM PACK PO SCH (13:45)
--- NOTE | 2018-11-18 13:56 | GI REPORT ---
Patient Name: Michael Fink Procedure Date: 11/18/2018 1:30 PM Date of : 1955 Admit Type: Inpatient Age: 63 Gender: Male Attending MD: Mariusz Lucio MD Procedure: Upper GI endoscopy Providers: Mariusz Lucio MD Referring MD: Maxwell Cantor Indications: Acute post hemorrhagic anemia, Hematochezia Medicines: Monitored Anesthesia Care Complications: No immediate complications. Estimated blood loss: None. Estimated Blood Loss: Estimated blood loss: none. Procedure: Pre-Anesthesia Assessment: - The risks and benefits of the procedure and the sedation options and risks were discussed with the patient. All questions were answered and informed consent was obtained. - Patient identification and proposed procedure were verified prior to the procedure by the physician, the nurse and the nursing program director. The procedure was verified in the procedure room. After obtaining informed consent, the endoscope was passed under direct vision. Throughout the procedure, the patient's blood pressure, pulse, and oxygen saturations were monitored continuously. The scope was introduced through the mouth, and advanced to the second part of duodenum. The upper GI endoscopy was accomplished without difficulty. The patient tolerated the procedure well. Findings: The Z-line was regular and was found 40 cm from the incisors. The esophagus was normal. Patchy mildly erythematous mucosa was found in the gastric antrum. Localized mildly erythematous mucosa was found in the first portion of the duodenum. The exam was otherwise without abnormality. No fresh nor old blood noted. Impression: - Z-line regular, 40 cm from the incisors. - Normal esophagus. - Erythematous mucosa in the antrum. - Erythematous duodenopathy. - The examination was otherwise normal. - No specimens collected. Recommendation: - [facility]. - Recommend colonoscopy tomorrow. Mariusz Lucio M.D. Mariusz Lucio MD 11/18/2018 1:55:31 PM This report has been signed electronically. Note Initiated On: 11/18/2018 1:30 PM Number of Addenda: 0 I attest to the content of the Intraoperative Record and orders documented therein, exceptions below {[id number]}
--- NOTE | 2018-11-18 14:02 | Post Operative Brief Note ---
Immediate Post Op Note v1 Date of Surgery November 18, 2018 Pre & Post Diagnosis Operation Date: 11/18/18 09:00 Pre-Op Diagnosis: GI bleeding Post-Op Diagnosis: Doudenal and antral erythema Operation Date: 11/19/18 07:30 <No data on this case meets the specified criteria> Procedure Operation Date: 11/18/18 09:00 Actual Procedures p Colonoscopy - Mariusz Lucio Operation Date: 11/19/18 07:30 <No data on this case meets the specified criteria> Surgeon Mariusz Lucio Steam Gigger see formal report Estimated Blood Loss 0 Findings See Below Mild erythema of antrum and duodenum. No lesions to explain anemia. Pt without complaint post procedure. Plan colonscopy tomorrow.
--- NOTE | 2018-11-18 14:12 | Anesthesiology Progress Note ---
Date of Service November 18, 2018 Anesthesia Post Procedure Vital Signs Vital Signs: Temp Pulse Pulse Pulse Resp BP BP 11/18/18 13:11 97.7 F 80 16 11/18/18 12:35 97.7 F 72 18 11/18/18 07:38 97.7 F 76 20 11/18/18 04:07 97.9 F 80 18 99/59 L 11/18/18 00:54 97.3 F L 79 19 102/68 11/18/18 00:26 87 11/18/18 00:00 80 16 93/61 L 11/17/18 23:53 77 20 128/72 11/17/18 23:01 82 23 118/72 11/17/18 22:30 83 20 104/66 11/17/18 22:24 89 20 11/17/18 22:22 89 19 91/55 L 11/17/18 22:19 11/17/18 21:41 98.2 F 98 H 18 113/73 BP Pulse Ox 11/18/18 13:11 93/65 L 95 11/18/18 12:35 127/73 95 11/18/18 07:38 111/75 94 11/18/18 04:07 95 11/18/18 00:54 96 11/18/18 00:26 11/18/18 00:00 94 11/17/18 23:53 96 11/17/18 23:01 98 11/17/18 22:30 95 11/17/18 22:24 96 11/17/18 22:22 97 11/17/18 22:19 98 11/17/18 21:41 95 Pain Intensity Left Posterior Shoulder: Pain Intensity: 4 Transfer of Care Handoff Completed per policy Notes Mental Status: alert / awake / arousable and participated in evaluation Patient Amnestic to Procedure: Yes Nausea / Vomiting: adequately controlled Pain: adequately controlled Airway Patency, RR, SpO2: stable & adequate BP & HR: stable & adequate Hydration State: stable & adequate Anesthetic Complications: no major complications apparent and Pt Satisfied with anesthetic care
[2018-11-18 15:24] LABS: Hematocrit (blood only) 31.2 % (42-52); Hemoglobin 10.6 g/dL (14.0-18.0)
[2018-11-18 19:29] LABS: Hematocrit (blood only) 32.1 % (42-52); Hemoglobin 10.5 g/dL (14.0-18.0)
--- NOTE | 2018-11-18 19:35 | Hospitalist Progress Note ---
Date of Service November 18, 2018 Assessment & Plan (1) Acute blood loss anemia: 2nd to GI bleeding. EGD today w/ mild gastritis and duodenitis - suspect due to NSAID use. But no bleeding seen and not felt to be cause of his GI bleeding. Cont serial H/H's. Present on Admission?: Yes (2) GI bleed: EGD findings as noted above. D/c IV pepcid; change to PO protonix in am. Clear liquids. Prep for colonoscopy in AM. Appreciate [facility] GI consultation. GI bleeding likely lower -- differential - diverticular, colonic or distal small bowel mass, AVM, etc. NPO after MN for c-scope tomorrow. Cont serial H/H's. BP remains stable. Cont tele status. Present on Admission?: Yes (3) Hypertension: Stable blood pressures. Cont to hold antihypertensive agents. (4) Diabetes: Cont novolog SSI. Glycemic control acceptable for now. (5) Dyslipidemia: continue Atorvastatin (6) Hypernatremia: 2nd to NS fluids. stop NS. change to LR, lower rate to 100cc/hr. BMP am. (7) DVT prophylaxis: SCDs chemical means contraindicated Subjective just before going down to endoscopy patient had maroon-colored stools. painless. no nausea/emesis. has never had GI bleeding before. denies cp or dyspnea. tele stable overnight. Review of Systems Constitutional: no fever Respiratory: no cough and no dyspnea Cardiovascular: no chest pain Gastrointestinal: + blood in stools; no abdominal pain, no nausea and no vomiting Physical Exam Constitutional: well developed, well nourished and + obese; no acute distress ENMT: external ear and nose normal, oropharynx normal Respiratory: normal respiratory effort, lungs clear to auscultation Cardiovascular: Rate/Rhythm: regular rate and regular rhythm Heart Sounds: normal S1 and normal S2; no murmur Vessels: posterior tibial pulses present and dorsalis pedis pulses present; no JVD Gastrointestinal (Abdomen): normal bowel sounds, soft, nontender, no hepatosplenomegaly Skin: no rashes, warm and dry Psychiatric: A+Ox3, euthymic affect Results & Data Vital Signs (Past 12 Hours) Vital Signs Temp Pulse Resp BP BP Pulse Ox 11/18/18 19:12 36.4 C L 71 18 150/78 H 98 11/18/18 15:10 36.5 C 77 18 146/82 H 97 11/18/18 14:28 72 20 133/72 95 11/18/18 14:10 72 20 133/72 95 11/18/18 13:55 74 20 133/72 97 11/18/18 13:11 36.5 C 80 16 93/65 L 95 11/18/18 12:35 36.5 C 72 18 127/73 95 11/18/18 07:38 36.5 C 76 20 111/75 94 Laboratory Results Laboratory Results - last 24 hr 11/17/18 11/17/18 11/17/18 22:13 22:13 22:13 WBC 7.52 RBC 4.18 L Hgb 13.5 L Hct 37.9 L MCV 90.7 MCH 32.3 MCHC 35.6 RDW Std Deviation 42.9 RDW Coeff of Donita 13.0 Plt Count 199 MPV 9.0 Immature Gran % (Auto) Neut % (Auto) Lymph % (Auto) [place] % (Auto) Eos % (Auto) Baso % (Auto) Immature Gran # (Auto) Neut # (Auto) Lymph # (Auto) [place] # (Auto) Eos # (Auto) Baso # (Auto) PT 10.9 INR 1.1 APTT 26.2 PTT Ratio 1.0 Sodium 143 Potassium 3.9 Chloride 110 H Carbon Dioxide 24 Anion Gap 10.0 BUN 21 H Creatinine 1.19 Est Cr Clr Drug Dosing Not Reportable Est GFR ( Amer) 74.9 Est GFR (Non-Af Amer) 64.6 BUN/Creatinine Ratio 17.9 Glucose 283 H POC Glucose Estimat Average Glucose Hemoglobin A1c Calcium 9.2 Magnesium 2.1 Total Bilirubin 0.9 AST 23 ALT 31 Alkaline Phosphatase 71 Total Protein 6.5 Albumin 3.5 Globulin 3.0 Albumin/Globulin Ratio 1.2 Stl C. diff Tox B Gene Hepatitis C Ab Screen Blood Type Antibody Screen 11/17/18 11/18/18 11/18/18 22:13 01:00 01:07 WBC RBC Hgb Hct MCV MCH MCHC RDW Std Deviation RDW Coeff of Donita Plt Count MPV Immature Gran % (Auto) Neut % (Auto) Lymph % (Auto) [place] % (Auto) Eos % (Auto) Baso % (Auto) Immature Gran # (Auto) Neut # (Auto) Lymph # (Auto) [place] # (Auto) Eos # (Auto) Baso # (Auto) PT INR APTT PTT Ratio Sodium Potassium Chloride Carbon Dioxide Anion Gap BUN Creatinine Est Cr Clr Drug Dosing Est GFR ( Amer) Est GFR (Non-Af Amer) BUN/Creatinine Ratio Glucose POC Glucose 183 H Estimat Average Glucose Hemoglobin A1c Calcium Magnesium Total Bilirubin AST ALT Alkaline Phosphatase Total Protein Albumin Globulin Albumin/Globulin Ratio Stl C. diff Tox B Gene Negative Cdiff Gene Hepatitis C Ab Screen Blood Type A Positive Antibody Screen NEGATIVE 11/18/18 11/18/18 11/18/18 06:01 06:01 06:01 WBC 6.31 RBC 3.77 L Hgb 11.4 L Hct 34.5 L MCV 91.5 MCH 30.2 MCHC 33.0 RDW Std Deviation 43.9 RDW Coeff of Donita 13.2 Plt Count 187 MPV 9.0 Immature Gran % (Auto) 0.3 Neut % (Auto) 67.2 Lymph % (Auto) 19.3 [place] % (Auto) 9.2 Eos % (Auto) 3.5 Baso % (Auto) 0.5 Immature Gran # (Auto) 0.02 Neut # (Auto) 4.24 Lymph # (Auto) 1.22 [place] # (Auto) 0.58 Eos # (Auto) 0.22 Baso # (Auto) 0.03 PT INR APTT PTT Ratio Sodium 148 H Potassium 4.3 Chloride 116 H Carbon Dioxide 23 Anion Gap 8.0 BUN 27 H Creatinine 0.85 D Est Cr Clr Drug Dosing 97.4 Est GFR ( Amer) 107.5 Est GFR (Non-Af Amer) 92.7 BUN/Creatinine Ratio 31.6 H Glucose 142 H POC Glucose Estimat Average Glucose 169 Hemoglobin A1c 7.5 H Calcium 8.4 L Magnesium Total Bilirubin AST ALT Alkaline Phosphatase Total Protein Albumin Globulin Albumin/Globulin Ratio Stl C. diff Tox B Gene Hepatitis C Ab Screen Blood Type Antibody Screen 11/18/18 11/18/18 11/18/18 06:01 06:04 15:08 WBC RBC Hgb 10.6 L Hct 31.2 L MCV MCH MCHC RDW Std Deviation RDW Coeff of Donita Plt Count MPV Immature Gran % (Auto) Neut % (Auto) Lymph % (Auto) [place] % (Auto) Eos % (Auto) Baso % (Auto) Immature Gran # (Auto) Neut # (Auto) Lymph # (Auto) [place] # (Auto) Eos # (Auto) Baso # (Auto) PT INR APTT PTT Ratio Sodium Potassium Chloride Carbon Dioxide Anion Gap BUN Creatinine Est Cr Clr Drug Dosing Est GFR ( Amer) Est GFR (Non-Af Amer) BUN/Creatinine Ratio Glucose POC Glucose 146 H Estimat Average Glucose Hemoglobin A1c Calcium Magnesium Total Bilirubin AST ALT Alkaline Phosphatase Total Protein Albumin Globulin Albumin/Globulin Ratio Stl C. diff Tox B Gene Hepatitis C Ab Screen Neg Blood Type Antibody Screen 11/18/18 11/18/18 16:42 19:13 WBC RBC Hgb 10.5 L Hct 32.1 L MCV MCH MCHC RDW Std Deviation RDW Coeff of Donita Plt Count MPV Immature Gran % (Auto) Neut % (Auto) Lymph % (Auto) [place] % (Auto) Eos % (Auto) Baso % (Auto) Immature Gran # (Auto) Neut # (Auto) Lymph # (Auto) [place] # (Auto) Eos # (Auto) Baso # (Auto) PT INR APTT PTT Ratio Sodium Potassium Chloride Carbon Dioxide Anion Gap BUN Creatinine Est Cr Clr Drug Dosing Est GFR ( Amer) Est GFR (Non-Af Amer) BUN/Creatinine Ratio Glucose POC Glucose 161 H Estimat Average Glucose Hemoglobin A1c Calcium Magnesium Total Bilirubin AST ALT Alkaline Phosphatase Total Protein Albumin Globulin Albumin/Globulin Ratio Stl C. diff Tox B Gene Hepatitis C Ab Screen Blood Type Antibody Screen (1) GI bleed GI bleed type/associated pathology: unspecified gastrointestinal hemorrhage type Qualified Code(s): K92.2 - Gastrointestinal hemorrhage, unspecified (2) Hypertension Hypertension type: essential hypertension Qualified Code(s): I10 - Essential (primary) hypertension (3) Diabetes Diabetes mellitus type: type 2 Diabetes mellitus fpc insulin use: without intermodal customer service use Diabetes mellitus complication status: without complication Qualified Code(s): E11.9 - Type 2 diabetes mellitus without complications
--- NOTE | 2018-11-18 22:23 | Anesthesiology Consultation ---
Date of Service November 18, 2018 Assessment & Plan (1) Encounter for pre-operative examination: Chart Review Chart Review: Acceptable Risk for Surgery, Patient NOT seen in Pre Admission Testing and entry level drafter initiated Consults Requested none History Surgery Operation Date: 11/18/18 09:00 Proposed Procedures p Esophagogastroduodenoscopy Dr Naveed Lucio Operation Date: 11/19/18 09:40 Proposed Procedures p Colonoscopy Dr Naveed Lucio Height/Weight Height: 5 ft 5 in Weight: 101.2 kg Allergies Allergy/AdvReac Type Severity Reaction Status Date / Time No Known Allergies Allergy Unverified 11/17/18 23:59 Medications Home Medications Medication Instructions Recorded Confirmed Last Taken aspirin 81 mg PO DAILY 11/17/18 11/17/18 Unknown atorvastatin 20 mg PO DAILY 11/17/18 11/17/18 Unknown empagliflozin [Jardiance] 10 mg PO DAILY 11/17/18 11/17/18 Unknown losartan 100 mg PO DAILY 11/17/18 11/17/18 Unknown metformin 1,000 mg PO BID 11/17/18 11/17/18 Unknown Active Medications Generic Name Dose Route Start Last Admin Trade Name Freq PRN Reason Stop Dose Admin Acetaminophen 650 mg 11/18/18 00:49 11/18/18 09:29 Tylenol PO 12/18/18 00:48 650 mg Q4H PRN Administration Pain or Fever Atorvastatin Calcium 20 mg 11/18/18 09:00 11/18/18 09:22 Lipitor PO 12/18/18 08:59 20 mg DAILY RAKAN Administration Insulin Aspart 0 units 11/18/18 01:15 11/18/18 17:22 Novolog Flexpen SC 12/18/18 01:14 3 units Q6 RAKAN Administration Ioversol 95 ml 11/17/18 23:46 11/17/18 23:46 Optiray 320 100ml IV 11/21/18 23:45 95 ml ONCE PRN Administration Interaction Checking NPO Date Last Intake of Fluids: 11/18/18 Time Last Intake of Fluids: 11:00 Date Last Intake of Solids: 11/17/18 Time Last Intake of Solids: 20:00 Past Medical History Medical History Diabetes History of colon polyps Hypertension Sleep apnea Past Family History Family History Other Family history non-contributory Past Surgical History Surgical History History of repair of patent ductus arteriosus S/P carpal tunnel release S/P decompression of ulnar nerve Social History Smoking Status: Never smoker Do You Dip or Chew Tobacco: No Hx Alcohol Use: Yes Alcohol type: beer alcohol intake frequency: holidays/special occasions only Alcohol Intake Frequency Comment: socially Hx Substance Use: No Physical Exam Vital Signs Last Vital Signs Temp 36.4 C L 11/18/18 19:12 Pulse 71 11/18/18 19:12 Resp 18 11/18/18 19:12 BP 150/78 H 11/18/18 19:12 Pulse Ox 98 11/18/18 19:12 Testing Electrocardiogram Date: 09/11/17 Normal sinus rhythm, rate 91 bpm Normal ECG When compared with ECG of 21-JUL-2017 18:25, No significant change was found Confirmed by KJ TENORIO ([id number]) on 09/12/2017 12:18:11 PM
[2018-11-19] MEDS: INSULIN ASPART 100 UNITS/ML 3 ML PEN SC SCH ×2 (00:02→06:07)
[2018-11-19 01:04] LABS: Hematocrit (blood only) 28.1 % (42-52); Hemoglobin 9.7 g/dL (14.0-18.0)
--- NOTE | 2018-11-19 06:39 | Gastroenterology Progress Note ---
Date of Service November 19, 2018 Assessment & Plan (1) GI bleed: EGD 11/19/18 no explanation, stools clear so no further bleeding. Plan colo today. Proc and risks explained to patient which include but not limited to med reaction, bleeding, perforation, aspiration and missed lesions. Acute blood loss anemia--drop to 9/7 at MN, am labs pending. colon diverticulosis fatty liver--LFTs normal Subjective cc f/u GI bleeding HPI Pt states tolerated whole prep. Per nurse and patient stools cleared of blood and became bile colored. No abd pain. Review of Systems Respiratory: no dyspnea Cardiovascular: no chest pain Physical Exam Constitutional: WD/WN, vitals as above Respiratory: normal respiratory effort, lungs clear to auscultation Cardiovascular: RRR, no murmur, no edema Gastrointestinal (Abdomen): normal bowel sounds, soft, nontender, no hepatosplenomegaly Skin: normal turgor Psychiatric: A+Ox3, euthymic affect Results & Data Vital Signs (Past 12 Hours) Vital Signs Temp Pulse Resp BP BP Pulse Ox 11/19/18 04:00 36.5 C 88 18 117/76 94 11/18/18 23:53 36.8 C 86 17 118/69 97 11/18/18 19:12 36.4 C L 71 18 150/78 H 98 (1) GI bleed GI bleed type/associated pathology: unspecified gastrointestinal hemorrhage type Qualified Code(s): K92.2 - Gastrointestinal hemorrhage, unspecified
[2018-11-19 06:52] LABS: Basophils # (auto) 0.02 K/uL (0-0.2); Basophils % (auto) 0.4 %; Eosinophils # (auto) 0.24 K/uL (0-0.5); Eosinophils % (auto) 4.5 %; Hematocrit (blood only) 30.7 % (42-52); Hemoglobin 10.3 g/dL (14.0-18.0); Immature Granulocytes # (auto) 0.02 K/uL (0.00-0.02); Immature Granulocytes % (auto) 0.4 %; Lymphocytes # (auto) 1.11 K/uL (1.2-3.4); Mean Corpuscular Hgb Conc 33.6 g/dL (32-36); Mean Corpuscular Volume 90.3 fL (80-100); Mean Platelet Volume 8.8 fL (7.4-10.4); Monocytes # (auto) 0.42 K/uL (0.11-0.59); Neutrophils # (auto) 3.47 K/uL (1.4-6.5); Neutrophils % (auto) 65.7 %; Platelet Count 185 K/uL (130-400); RDW Coefficient of Variation 13.1 % (11.5-14.5); RDW Standard Deviation 42.6 fL (36.4-46.3); White Blood Count 5.28 K/uL (4.8-10.8)
[2018-11-19] MEDS ORDERED: LIDOCAINE HCL 2% 2 ML VIAL/AMP(20MG/ML) INFIL ONE (07:07)
[2018-11-19] MEDS ORDERED: PROPOFOL IV EMULSION 10 MG/ML 20 ML VIAL IV ONE ×2 (07:07→08:00)
[2018-11-19 07:15] LABS: Albumin Globulin Ratio 1.3 (0.9-2); Albumin Level 3.4 gm/dl (3.4-5.0); BUN Creatinine Ratio 27.7 (10-20); Calcium 8.8 mg/dl (8.5-10.1); Creatinine Clr Calc Pharmacy 128.6 ml/min; Est GFR (African American) 120.8; Est GFR (Non-African American) 104.2; Globulin 2.6 gm/dl (2.5-4.0); Magnesium 2.2 mg/dl (1.8-2.4); Potassium 4.1 mmol/L (3.5-5.1)
[2018-11-19] MEDS ORDERED: ePHEDrine sulfate 50 MG/ML AMP IV PRN (07:26)
[2018-11-19] MEDS ORDERED: fentaNYL citrate 100 MCG/2 ML VIAL IV PRN (07:26)
[2018-11-19] MEDS ORDERED: ONDANSETRON INJ 2 MG/ML 2 ML VIAL IV PRN (07:26)
[2018-11-19] MEDS ORDERED: ATROPINE SULFATE 0.1 MG/ML 10ML SYR IV PRN (07:26)
--- NOTE | 2018-11-19 08:04 | GI REPORT ---
Patient Name: Michael Fink Procedure Date: 11/19/2018 7:23 AM Date of : 1955 Admit Type: Inpatient Age: 63 Gender: Male Attending MD: Mariusz Lucio MD Procedure: Colonoscopy Providers: Mariusz Lucio MD Referring MD: Referred Self, Maxwell Cantor Indications: Hematochezia Medicines: Monitored Anesthesia Care Complications: No immediate complications. Estimated blood loss: None. Estimated Blood Loss: Estimated blood loss: none. Procedure: Pre-Anesthesia Assessment: - The risks and benefits of the procedure and the sedation options and risks were discussed with the patient. All questions were answered and informed consent was obtained. - Patient identification and proposed procedure were verified prior to the procedure by the physician, the nurse and the railroad switchman. The procedure was verified in the procedure room. After I obtained informed consent, the scope was passed under direct vision. Throughout the procedure, the patient's blood pressure, pulse, and oxygen saturations were monitored continuously. The scope was introduced through the anus and advanced to the terminal ileum, with identification of the appendiceal orifice and IC valve. The colonoscopy was technically difficult and complex due to a redundant colon, significant looping and a tortuous colon. Successful completion of the procedure was aided by changing the patient's position, using manual pressure and straightening and shortening the scope to obtain bowel loop reduction. The patient tolerated the procedure well. Procedure and risks explained to patient which include but not limited to med reaction, bleeding, perforation, aspiration and missed lesions. Judicious gas insufflation and gas removal done on the way out. The lumen always well visualized when advancing the scope. Washes and suctioning used as needed for good visuzlization of mucosa. Prep was good. Retroflexion in the rectum to look at the distal rectum and anal canal done. Findings: The terminal ileum limited view (could not get all the way in) appeared normal. No blood noted. Multiple large-mouthed diverticula were found in the left colon. There is no endoscopic evidence of bleeding in the entire colon. The exam was otherwise without abnormality on direct and retroflexion views. Impression: - The examined portion of the ileum was normal. - Diverticulosis in the left colon. - The examination was otherwise normal on direct and retroflexion views. - No specimens collected. Recommendation: - [facility] same day. - Resume regular diet. Mariusz Lucio M.D. Mariusz Lucio MD 11/19/2018 8:03:29 AM This report has been signed electronically. Note Initiated On: 11/19/2018 7:23 AM Number of Addenda: 0 I attest to the content of the Intraoperative Record and orders documented therein, exceptions below {[id number]}
--- NOTE | 2018-11-19 08:19 | Post Operative Brief Note ---
Immediate Post Op Note v1 Date of Surgery November 19, 2018 Pre & Post Diagnosis Operation Date: 11/18/18 09:00 Pre-Op Diagnosis: LGIB Post-Op Diagnosis: [place] and antral erythema Operation Date: 11/19/18 09:40 Pre-Op Diagnosis: Gastrointestinal Bleeding Post-Op Diagnosis: Diverticulosis Procedure Operation Date: 11/18/18 09:00 Actual Procedures p Colonoscopy - Mariusz Lucio Operation Date: 11/19/18 09:40 Actual Procedures p Colonoscopy(Not Applicable) - Mariusz Lucio Surgeon Mariusz Lucio Build Engineer see formal report Estimated Blood Loss 0 Findings Consistent with Post-Op Diagnosis colonoscopy to TI. NO blood. Left colon diverticulosis. Assume GI bleeding secondary to diverticulosis and stopped now. Pt stable post colo and went over results. OK for DC today. Recommend Ferrous sulfate 325 mg daily and f/u with PCP to monitor CBC.
--- NOTE | 2018-11-19 08:29 | Anesthesiology Progress Note ---
Date of Service November 19, 2018 Anesthesia Post Procedure Vital Signs Vital Signs: Temp Pulse Pulse Resp BP BP Pulse Ox 11/19/18 08:25 36.4 C L 75 16 118/73 98 11/19/18 08:15 78 16 114/71 98 11/19/18 08:05 36.4 C L 79 16 108/65 100 11/19/18 06:42 36.6 C 82 17 114/75 98 11/19/18 04:00 36.5 C 88 18 117/76 94 11/18/18 23:53 36.8 C 86 17 118/69 97 11/18/18 19:12 36.4 C L 71 18 150/78 H 98 11/18/18 15:10 36.5 C 77 18 146/82 H 97 11/18/18 14:28 72 20 133/72 95 11/18/18 14:10 72 20 133/72 95 11/18/18 13:55 74 20 133/72 97 11/18/18 13:11 36.5 C 80 16 93/65 L 95 11/18/18 12:35 36.5 C 72 18 127/73 95 Pain Intensity Left Posterior Shoulder: Pain Intensity: 4 Transfer of Care Handoff Completed per policy Notes Mental Status: alert / awake / arousable and participated in evaluation Nausea / Vomiting: adequately controlled Pain: adequately controlled Airway Patency, RR, SpO2: stable & adequate BP & HR: stable & adequate Hydration State: stable & adequate Anesthetic Complications: no major complications apparent and Pt Satisfied with anesthetic care
[2018-11-19] MEDS ORDERED: PANTOprazole 40 MG TAB PO SCH (09:00)
[2018-11-19] MEDS ORDERED: FERROUS SULFATE 325 MG TAB PO SCH (09:00)
[2018-11-19] MEDS: ATORVASTATIN 20 MG TAB PO SCH (10:30)
--- NOTE | 2018-11-26 07:23 | Discharge Summary ---
Date of Service date of admission - November 17, 2018 date of discharge - November 19, 2018 Admission HPI Per Admitting Provider Mr. Fink is a 63yo C male with history of DM, HTN and HLP presenting with lower GI bleed. Reports driving home from work this evening when he developed sharp, crampy lower abdominal pain. When he arrived home he had a large, bloody bowel movement. He ate dinner then had two additional bloody bowel movements. On arrival to the ER patient afebrile, hemodynamically stable. He had an additional bloody bowel movement in the ER. Patient with no complaints at present. Denies abdominal pain. Social EtOH use, he does use Aleve regularly, 2 pills in the AM and2 in the evening. 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 History of fatty liver disease. ER Course: Pepcid 20mg IV, NSS Principal Diagnosis acute blood loss anemia 2nd to lower GI bleed Discharge Exam Constitutional well developed, well nourished and + obese; no acute distress ENMT external ear and nose normal, oropharynx normal Respiratory normal respiratory effort, lungs clear to auscultation Cardiovascular Rate/Rhythm: regular rate and regular rhythm Heart Sounds: normal S1 and normal S2; no murmur Vessels: posterior tibial pulses present and dorsalis pedis pulses present; no JVD Gastrointestinal (Abdomen) normal bowel sounds, soft, nontender, no hepatosplenomegaly Percussion/Palpation: + hernia (left - inguinal - reducible) Skin no rashes, warm and dry Psychiatric A+Ox3, euthymic affect Discharge Data Allergies Allergy/AdvReac Type Severity Reaction Status Date / Time No Known Allergies Allergy Unverified 11/17/18 23:59 Consultations [facility] Gastroenterology - Mariusz Lucio MD Procedures Performed Operation Date: 11/19/18 Actual Procedures Colonoscopy - Mariusz Lucio MD * no active bleeding * left-sided diverticulosis Operation Date: 11/18/18 Actual Procedures EGD - Mariusz Lucio MD - Normal esophagus. - Erythematous mucosa in the antrum. - Erythematous duodenopathy. - The examination was otherwise normal. - No specimens collected. Ordered Studies CT abd/pelvis - IMPRESSION: 1. Colonic diverticulosis without evidence for acute diverticulitis. No bowel obstruction. Decreased sensitivity for detection mucosal lesions given CT technique. 2. Bilateral nephrolithiasis. No ureteral calculi. 3. No change in size of a 2 cm peripherally calcified splenic artery aneurysm since CT of August 29, 2010. Hospital Course (1) Acute blood loss anemia: Presenting hemoglobin was 13.5. Hemoglobin day of discharge was 10.3. Acute blood loss anemia was 2nd to GI bleeding. EGD w/ mild gastritis and duodenitis - suspect due to NSAID use - but unlikely t he cause of his presentation. Colonoscopy with left-sided diverticulosis - likely cause of anemia and bleeding. He never needed PRBCs. Recommended ferrous sulfate 325mg BID for 2-3 months post-discharge with repeat CBC within 5 days of discharge for stability. (2) GI bleed: Treated with IV H2 katelyn, serial H/Hs, restricted diet and GI consultation. [facility]. Bleeding likely lower in origin from his diverticulosis. No colonic mass, AVM, or other lesion was seen that would have explained the bleeding. At discharge he was tolerating a diet and had no recurrent bleeding in the 24 hours leading to discharge. He was advised to take a dedicated fiber supplement indefinitely given his diverticular disease. Iron supplementation also advised. (3) Hypertension: Stable blood pressures during the stay. He will resume his losartan post-discharge. (4) Diabetes: He will need to HOLD his metformin at discharge due to recent IV contrast use of CT scan. A slip for repeat BMP within 2-3 days given to patient at discharge. Glycemic control during the stay was normal. (5) Dyslipidemia: continue Atorvastatin (6) Hypernatremia: 2nd to NS fluids. resolved prior to discharge. (7) Gastritis: As seen on EGD. Likely due to NSAID use. Advised to STOP all NSAID use including aspirin for now. Take a PPI daily for 1 month then stop. (8) Left inguinal hernia: No symptoms, reducible, follow clinically. Total Time Total Time Spent Total Time Spent (In Minutes): 40 Total Time Includes: Examination of the Patient, Discharge Planning, Medication Reconciliation and Communication With Other Providers Discharge Plan Discharge Items Patient Disposition: Home - Self-Care Reason For Visit: Lower GI Bleeding Discharge Diagnosis: Lower GI Bleeding likely due to diverticulosis Discharge Goals: Diagnostic testing and Therapeutic intervention Activity: As commented below Activity Comment: take it easy for 2-3 days then gradually increase activities Lifting: Gradually increase as tolerated Bathing: No limitations Exercise/Sports: Gradually increase as tolerated Driving/Machine Use: No limitations Non-emergency contact: Primary Care Provider Call non-emergency contact if: you have any medication questions, your symptoms worsen, your pain is unusual for you, your pain is concerning for you and your temperature is above 100.5 Follow-up/Referrals: Amanda Rivas PA-C [Primary Care Provider] - (see Ms Evelyn or Dr Redmond within 5-7 days) Diet: Carb Consistent or DM2 Other Ambulatory Orders: Basic Metabolic Panel (Routine) Timeframe: 20181121 Location: Determined by Patient Ordered By: Maxwell Cantor Complete Blood Count no Diff (Timed) Timeframe: 20181121 Location: Determined by Patient Ordered By: Maxwell Cantor Addtl Provider Instructions: From Maxwell Cantor - hospitalist - You were admitted for a gastrointestinal (GI) bleed. It was suspected to be LOWER in origin. To be complete, however, an upper endoscopy was performed which showed irritation in your stomach and duodenum (portion of small intestine) but no active bleeding was seen. The GI physician did NOT think your bleeding was due to the stomach irritation. Thus, a colonoscopy was performed today showing diverticulosis in your left colon. This was the likely cause of your bleeding. See diverticulosis handout for more information on diverticulosis. We did not see polyps or colon cancer on today's colonoscopy. The irritation in your stomach was likely from recent motrin and aspirin use. Recommend HOLDING your aspirin and any motrin/ibuprofen for at least 1-2 weeks. Take pantoprazole daily for 1 month for this stomach irritation. Script sent to [email or web address] for you. With respect to the diverticulosis please take a dedicated fiber supplement such as metamucil once daily EVERY DAY indefinitely. Adding this to your daily regimen has been shown to prevent worsening of your diverticular disease. For your anemia (low red cells due to the bleeding) please take [id number] iron (ferrous sulfate) 325mg twice a day for 1-2 months. The iron will make your stools dark and may cause constipation. You do indeed have a left-sided inguinal hernia. Please see handout on this issue. There is nothing to do at this time for it. Incidentally we saw tiny kidney stones on your recent CAT scan. They are asymptomatic at this time and not causing trouble. We recommend you avoid excessive amounts of coffee, tea, and soda. Focus on good hydration every day (lots of water or crystal lite) to prevent kidney stone formation. Lastly, because of the recent CAT scan, you will need to HOLD your metformin u ntil you have repeat blood work. Recommend having your blood work checked on WEDNESDAY. If the blood work is OK you can resume your metformin then. Please watch your diet carefully in the meantime. Bring lab slips with you when you get the blood draw. Follow-up -- See Dr Redmond's office within 5-7 days Return to [facility] if -- * you have recurrent bright red blood per rectum * you feel dizzy or lightheaded * you have severe abdominal pain * you have VERY dark or tarry stools * any other concerns Prescriptions: New pantoprazole 40 mg Tablet,Delayed Release (Dr/Ec) 40 mg PO QAM Qty: 30 RF: 0 ferrous sulfate 325 mg (65 mg iron) Tablet,Delayed Release (Dr/Ec) 325 mg PO BID Qty: 60 RF: 1 Continued atorvastatin 20 mg tablet 20 mg PO DAILY RF: 0 losartan 100 mg tablet 100 mg PO DAILY RF: 0 Jardiance 10 mg tablet 10 mg PO DAILY RF: 0 Discontinued aspirin 81 mg Tablet,Delayed Release (Dr/Ec) 81 mg PO DAILY RF: 0 metformin 500 mg tablet extended release 24 hr 1,000 mg PO BID RF: 0 Stand-Alone Forms: [facility]/Other Patient Handouts: ED Hernia Inguinal, ED Diverticulosis Discharge Orders: Discharge Order (Routine); Ordered 11/19/18 Ordered By: Maxwell Cantor Admission Data Admit Date/Time: 11/17/18 23:25 Attending Provider: Maxwell Cantor Admit Provider: Deloris Dickinson Primary Care Provider: Amanda Rivas Other Providers: Deloris Dickinson ; Thang Salinas Service: Telemetry Other Interventions: Discharge Summary Assessment (RN) Last Done: 11/19/18 12:51 DC Date/Time DO NOT enter until pt leaves facility: 11/19/18 13:35
== END 2018-11-19 13:35 | disposition home or self-care (01) | DRG 378 ==
LOC: ED 21:38 → SUATTDRO 23:25 → 2S 23:25
DX: E87.0 Hyperosmolality and hypernatremia; E78.5 Hyperlipidemia, unspecified; Z79.52 Long term (current) use of systemic steroids; I10 Essential (primary) hypertension; K57.30 Diverticulosis of large intestine without perforation or abscess without bleeding; Z79.82 Long term (current) use of aspirin; K92.2 Gastrointestinal hemorrhage, unspecified; D62 Acute posthemorrhagic anemia; E11.9 Type 2 diabetes mellitus without complications

== ENCOUNTER 2021-06-19 16:56 | Inpatient (IN) ==
[2021-06-19] MEDS ORDERED: DEXAMETHASONE SOD INJ 4 MG/ML VIAL IV STA (17:11)
[2021-06-19] MEDS ORDERED: ONDANSETRON INJ 2 MG/ML 2 ML VIAL IV STA (17:11)
[2021-06-19] MEDS ORDERED: SODIUM CHLORIDE 0.9% 1000ML 1,000 ML IV ONE (17:11)
[2021-06-19] MEDS ORDERED: ACETAMINOPHEN 1,000 MG/100 ML VIAL IV STA (17:11)
[2021-06-19] MEDS ORDERED: SODIUM CHLORIDE 0.9% 1000ML 1,000 ML IV SCH (17:15)
--- NOTE | 2021-06-19 17:38 | Emergency Department Note ---
History of Present Illness General Chief Complaint: Shortness of Breath/Dyspnea Stated Complaint: SOB, COUGH, COVID +, BLOOD IN MUCUS WHEN COUGHING Time Seen by Provider: 06/19/21 17:11 History of Present Illness Provider Complaint: shortness of breath and cough Onset (ago): week(s) (1) Severity: severe Consistency/Duration: + progressively worsening Current Pain Intensity: 0 Relieved By: + nothing Exacerbated By: + exertion and + coughing Context: + recent illness (diagnosed with COVID 3 days ago unvaccinated) Known history of: asthma Associated symptoms: + chest pain, + pain with inspiration, + fever, + cough, + sputum production, + hemoptysis, + nausea/vomiting and + chest congestion; no wheezing, no orthopnea, no lower extremity pain, no polyuria, no palpitations or no abdominal pain Treatment prior to arrival: none Related Data Home oxygen amount: none Home Medications Medication Instructions Recorded Confirmed Type aspirin 81 mg tablet,delayed 81 mg PO DAILY tab 02/03/19 03/21/21 History release blood sugar diagnostic (FreeStyle #10 ea 02/03/19 03/21/21 History Lite Strips) lancets 28 gauge (FreeStyle #25 ea 02/03/19 03/21/21 History Lancets) ferrous sulfate 325 mg (65 mg 65 mg PO DAILY tab 08/22/19 03/21/21 History iron) tablet,delayed release magnesium oxide 400 mg PO DAILY 08/22/19 03/21/21 History fluticasone furoate 100 1 puffs INH DAILY PRN ea 01/31/20 03/21/21 History mcg-vilanterol 25 mcg/dose inhalation powder (Breo Ellipta) losartan 100 mg tablet 100 mg PO DAILY #90 tab 06/17/20 03/21/21 Rx Farxiga 5 mg tablet (dapagliflozin) 5 mg PO DAILY #90 tab NS 07/16/20 03/21/21 Rx metformin 500 mg tablet,extended 1,000 mg PO BID #360 tab 10/14/20 03/21/21 Rx release 24 hr rosuvastatin 5 mg tablet 5 mg PO DAILY #90 tab 02/13/21 03/21/21 Rx cyanocobalamin (vitamin B-12) 1 ea PO DAILY 03/21/21 03/21/21 History [Vitamin B-12] azithromycin 500 mg tablet 500 mg PO DAILY 5 Days #5 tab 01/03/22 Rx (Zithromax) benzonatate 200 mg capsule 200 mg PO TID PRN #30 cap 06/18/21 06/18/21 Rx Allergies Allergy/AdvReac Type Severity Reaction Status Date / Time No Known Allergies Allergy Verified 03/21/21 09:04 Past Med/Surg History Medical History Allergic rhinitis Coronary artery calcification Diabetes Elevated transaminase level Fatty liver Hernia History of colon polyps Hypertension Inguinal hernia Nocturnal hypoxemia Obesity Sleep apnea Splenic artery aneurysm Surgical History History of repair of patent ductus arteriosus S/P carpal tunnel release S/P decompression of ulnar nerve Family History Father Colon cancer Other Family history non-contributory Social History Smoking Status: Never smoker Second Hand Exposure: No; Hx Alcohol Use: Yes Alcohol type: beer Alcohol Intake Frequency: Monthly or Less Hx Substance Use: No Preferred Language: Chinese Communication Ability: Effective Visual Impairment: Diminished Hearing Ability: Normal Piece Worker Required: No Beliefs That Will Affect Care: None marital status: Current Living Situation: Family Current Living Situation Comment: son current occupational status: retired current occupation: retired from [employer] Feels Safe at Home: Yes Childhood Exposure to Second-Hand Smoke: Yes caffeine: No Dental Care, Regularly: Yes Physical Activity Frequency: Does not Exercise Seatbelt Use: sometimes Sunscreen Use: Yes Do you think of yourself as: straight/heterosexual Assistive Devices: None Review of Systems A total of 10 systems reviewed and were otherwise negative Physical Exam Vital Signs: Vital Signs - 24 hr 06/19/21 17:02 06/19/21 17:28 06/19/21 17:29 Temperature 39.1 C H Temperature Source Oral Pulse Rate 95 H 93 H Pulse Rate [Apical ] Pulse Rhythm Regular Pulse Strength Normal Respiratory Rate 22 22 Respiratory Effort / Characteristics Non-Labored Sponta neous Respiratory Depth Normal Respiratory Patter n Regular Blood Pressure 126/67 Blood Pressure [Le ft Arm] Blood Pressure Isidra n 86 Blood Pressure Isidra n [Left Arm] Blood Pressure Pos ition Sitting Pulse Oximetry 83 L 94 Oxygen Delivery Me thod Room Air Nasal Cannula Nasal Cannula Oxygen Flow Rate 5 Sepsis Recent Feve r Within 48 Hours Yes Sepsis New/Unexpla ined Change in Men rosmery Status No Sepsis Action Take n by Nursing No Action Required Oxygen Flow Rate - Titration 5 Pulse Oximetry Pos t Tiitration 93 06/19/21 17:33 06/19/21 17:34 06/19/21 17:38 Temperature Temperature Source Pulse Rate 94 H Pulse Rate [Apical ] 95 H Pulse Rhythm Pulse Strength Respiratory Rate 22 24 Respiratory Effort / Characteristics Spontaneous Labore d Spontaneous Labore d Respiratory Depth Normal Respiratory Patter n Regular Blood Pressure 129/72 Blood Pressure [Le ft Arm] 129/72 Blood Pressure Isidra n 91 Blood Pressure Isidra n [Left Arm] 91 Blood Pressure Pos ition Pulse Oximetry 93 93 Oxygen Delivery Me thod Nasal Cannula Nasal Cannula Oxygen Flow Rate 5 4 Sepsis Recent Feve r Within 48 Hours Sepsis New/Unexpla ined Change in Men rosmery Status Sepsis Action Take n by Nursing Oxygen Flow Rate - Titration Pulse Oximetry Pos t Tiitration 06/19/21 18:00 06/19/21 18:29 Temperature 37 C Temperature Source Oral Pulse Rate Pulse Rate [Apical ] Pulse Rhythm Pulse Strength Respiratory Rate Respiratory Effort / Characteristics Respiratory Depth Respiratory Patter n Blood Pressure 121/72 Blood Pressure [Le ft Arm] Blood Pressure Isidra n 88 Blood Pressure Isidra n [Left Arm] Blood Pressure Pos ition Pulse Oximetry Oxygen Delivery Me thod Oxygen Flow Rate Sepsis Recent Feve r Within 48 Hours Sepsis New/Unexpla ined Change in Men rosmery Status Sepsis Action Take n by Nursing Oxygen Flow Rate - Titration Pulse Oximetry Pos t Tiitration Physical Exam: Physical Exam GENERAL: He is oriented to person, place, and time. He appears well-developed and well-nourished. He does not appear distressed. HENT: Exam performed. - Head: Normocephalic and atraumatic. - Right Ear: External ear normal. No mastoid tenderness. - Left Ear: External ear normal. No mastoid tenderness. - Mouth/Throat: The oropharynx is clear and moist. No trismus in the jaw. No dental abscesses or uvula swelling. No oropharyngeal exudate or tonsillar abscesses. EYES: Conjunctivae and EOM are normal. Pupils are equal, round, and reactive to light. Right eye exhibits no discharge. Left eye exhibits no discharge. No scleral icterus. NECK: Normal range of motion. Neck supple. No JVD present. No spinous process tenderness present. No carotid bruit present. No rigidity. No tracheal deviation and normal range of motion present. No Brudzinski's sign and no Kernig's sign noted. CV: Normal rate, regular rhythm, normal heart sounds and intact distal pulses. There is no peripheral edema. Palpable radial pulses bue. PULM/CHEST: Tachypneic rhonchi bilaterally. ABD: The abdomen is soft. Bowel sounds are normal. He has no distension. No mass is present. There is no tenderness. There is no rebound, no guarding, no Cole's sign and no tenderness at McBurney's point. Rovsig negative. MUSC/SKEL: Normal range of motion. There is no peripheral edema, tenderness or deformity. LYMPH: No cervical adenopathy. NEURO: He is alert and oriented to person, place, and time. He has normal strength. No cranial nerve deficit or sensory deficit. Coordination and gait normal. GCS eye subscore is 4. GCS verbal subscore is 5. GCS motor subscore is 6. Cerebellar tests wnl. SKIN: Skin is warm and dry. He is not diaphoretic. PSYCH: He has a normal mood and affect. Behavior is normal. Judgment and thought content normal. Course Course 1711: The patient was evaluated in room C9. A complete history and physical exam was performed Cardiac monitoring: An order was placed for continuous cardiac monitoring. The monitor shows a rate of 90 with sinusrhythm Patient was found to be hypoxic on room air. Patient was placed on supplemental oxygen via nasal cannula which improved his oxygen saturation. EMR reviewed. Patient was seen in the emergency department 3 days ago and tested positive for COVID-19. Patient is hypoxic we will treat the patient with Decadron 6 mg IV push. Will obtain CT of the chest given his reported hemoptysis and Covid positive. 1918: Vital signs stable on supplemental oxygen via nasal cannula. Labs within normal limits. Imaging shows no pulmonary embolus but does show bilateral groundglass opacities. Patient will be admitted to the medicine any hospitalist team Dr. Ortega team notified. Administered Medications Discontinued Medications Dexamethasone (Dexamethasone Sod Inj 4 Mg/Ml Vial) 6 mg IV NOW STA Stop: 06/19/21 17:12 Last Admin: 06/19/21 17:40 Dose: 6 mg Documented by: [id number] Acetaminophen (Ofirmev) 1,000 mg in 100 mls @ 400 mls/hr IV NOW STA Stop: 06/19/21 17:25 Last Infusion: 06/19/21 18:27 Dose: 0 mls/hr Documented by: [id number] Admin: 06/19/21 17:40 Dose: 400 mls/hr Documented by: [id number] Sodium Chloride (Nss 1000ml) 1,000 mls @ 999 mls/hr IV .Q1H1M ONE Stop: 06/19/21 18:11 Last Infusion: 06/19/21 19:10 Dose: 0 mls/hr Documented by: [id number] Admin: 06/19/21 17:39 Dose: 999 mls/hr Documented by: [id number] Sodium Chloride (Nss 1000ml) 1,000 mls @ 999 mls/hr IV .Q1H1M RAKAN Stop: 06/19/21 18:15 Last Admin: 06/19/21 18:28 Dose: 999 mls/hr Documented by: [id number] Ioversol (Optiray 320 125ml) 120 ml IV ONCE ONE Stop: 06/19/21 19:02 Last Admin: 06/19/21 19:02 Dose: 120 ml Documented by: [id number] Ondansetron HCl (Ondansetron Inj 2 Mg/Ml 2 Ml Vial) 4 mg IV NOW STA Stop: 06/19/21 17:12 Last Admin: 06/19/21 17:40 Dose: 4 mg Documented by: [id number] Medical Decision Making Laboratory Data Result diagrams: 06/19/21 17:28 06/19/21 17:28 Lab Results 06/19/21 06/19/21 06/19/21 Range/Units 17:28 17:28 17:28 WBC 3.60 L (4.8-10.8) K/uL RBC 4.39 L (4.7-6.1) M/uL Hgb 13.6 L (14.0-18.0) g/dL Hct 40.6 L (42-52) % MCV 92.5 (80-100) fL MCH 31.0 (25-34) pg MCHC 33.5 (32-36) g/dL RDW Std Deviation 45.9 (36.4-46.3) fL RDW Coeff of Donita 13.5 (11.5-14.5) % Plt Count 162 (130-400) K/uL MPV 9.1 (7.4-10.4) fL Immature Gran % (Auto) 0.3 % Neut % (Auto) 72.5 % Lymph % (Auto) 17.2 % Loup % (Auto) 10.0 % Eos % (Auto) 0.0 % Baso % (Auto) 0.0 % Neut # (Auto) 2.61 (1.4-6.5) K/uL Lymph # (Auto) 0.62 L (1.2-3.4) K/uL Loup # (Auto) 0.36 (0.11-0.59) K/uL Eos # (Auto) 0.00 (0-0.5) K/uL Baso # (Auto) 0.00 (0-0.2) K/uL Immature Gran # (Auto) 0.01 (0.00-0.02) K/uL PT (9.0-12.0) Seconds INR (0.9-1.1) APTT (21.0-31.0) Seconds PTT Ratio VBG pH (7.36-7.41) VBG pCO2 (38-50) mmHg VBG pO2 mmHg VBG HCO3 mmol/L VBG O2 Saturation % VBG Base Excess mEq/L Barometric Pressure mm/Hg Sodium 138 (136-145) mmol/L Potassium 3.7 (3.5-5.1) mmol/L Chloride 106 (98-107) mmol/L Carbon Dioxide 27 (21-32) mmol/L Anion Gap 5.0 (3-11) BUN 18 (7-18) mg/dl Creatinine 0.96 (0.6-1.4) mg/dl Est Cr Clr Drug Dosing 82.9 ml/min Est GFR ( Amer) 95.8 ml/min Est GFR (Non-Af Amer) 82.6 ml/min BUN/Creatinine Ratio 18.6 (10-20) Glucose 175 H (70-99) mg/dl Lactate (0.4-2.0) mmol/L Calcium 8.8 (8.5-10.1) mg/dl Magnesium 2.1 (1.8-2.4) mg/dl Total Bilirubin 0.7 (0.2-1) mg/dl AST 51 H (15-37) U/L ALT 35 (12-78) Alkaline Phosphatase 62 (45-117) U/L Troponin I 0.018 (0-0.045) ng/ml Total Protein 6.9 (6.4-8.2) gm/dl Albumin 3.1 L (3.4-5.0) gm/dl Globulin 3.8 (2.5-4.0) gm/dl Albumin/Globulin Ratio 0.8 L (0.9-2) Procalcitonin 0.42 (0-0.5) ng/ml 06/19/21 06/19/21 06/19/21 Range/Units 17:28 17:34 17:36 WBC (4.8-10.8) K/uL RBC (4.7-6.1) M/uL Hgb (14.0-18.0) g/dL Hct (42-52) % MCV (80-100) fL MCH (25-34) pg MCHC (32-36) g/dL RDW Std Deviation (36.4-46.3) fL RDW Coeff of Donita (11.5-14.5) % Plt Count (130-400) K/uL MPV (7.4-10.4) fL Immature Gran % (Auto) % Neut % (Auto) % Lymph % (Auto) % Loup % (Auto) % Eos % (Auto) % Baso % (Auto) % Neut # (Auto) (1.4-6.5) K/uL Lymph # (Auto) (1.2-3.4) K/uL Loup # (Auto) (0.11-0.59) K/uL Eos # (Auto) (0-0.5) K/uL Baso # (Auto) (0-0.2) K/uL Immature Gran # (Auto) (0.00-0.02) K/uL PT 9.9 (9.0-12.0) Seconds INR 1.0 (0.9-1.1) APTT 31.1 H (21.0-31.0) Seconds PTT Ratio 1.2 VBG pH 7.37 (7.36-7.41) VBG pCO2 46 (38-50) mmHg VBG pO2 29 mmHg VBG HCO3 26 mmol/L VBG O2 Saturation < 60.0 % VBG Base Excess 0.5 mEq/L Barometric Pressure 729.4 mm/Hg Sodium (136-145) mmol/L Potassium (3.5-5.1) mmol/L Chloride (98-107) mmol/L Carbon Dioxide (21-32) mmol/L Anion Gap (3-11) BUN (7-18) mg/dl Creatinine (0.6-1.4) mg/dl Est Cr Clr Drug Dosing ml/min Est GFR ( Amer) ml/min Est GFR (Non-Af Amer) ml/min BUN/Creatinine Ratio (10-20) Glucose (70-99) mg/dl Lactate 1.5 (0.4-2.0) mmol/L Calcium (8.5-10.1) mg/dl Magnesium (1.8-2.4) mg/dl Total Bilirubin (0.2-1) mg/dl AST (15-37) U/L ALT (12-78) Alkaline Phosphatase (45-117) U/L Troponin I (0-0.045) ng/ml Total Protein (6.4-8.2) gm/dl Albumin (3.4-5.0) gm/dl Globulin (2.5-4.0) gm/dl Albumin/Globulin Ratio (0.9-2) Procalcitonin (0-0.5) ng/ml Imaging Data Radiologist's Impression: Chest CTA 06/19/21 17:11 CT angio chest PE protocol CLINICAL HISTORY: ro PE Covid pneumonia. TECHNIQUE: Multidetector row helical CT of the chest was performed. Coronal and sagittal reformations were obtained. Coronal and sagittal MIPS were obtained from the axial data set and were submitted for review. Automated dose lowering techniques and/or adjustment according to patient size were utilized for this exam. Comparison: Comparison is made to CT chest 06/16/2019 FINDINGS: Lungs and pleura: Multifocal consolidative and groundglass opacities are seen. Heart and pericardium: Heart size is normal. No pericardial effusion. Vessels: Moderate atherosclerotic changes in the aorta and coronary arteries. No evidence of pulmonary embolus. Mediastinum and cameron: Unremarkable. Chest wall and lower neck: Subcentimeter thyroid nodules are noted which do not require follow-up by ACR criteria. Abdomen: Unremarkable. Bones: Unremarkable. IMPRESSION: 1. No evidence of pulmonary embolism. 2. Multifocal airspace opacities compatible with viral pneumonia. ACT 112: Negative or not required by law. Electronically signed by: Lul Nam M.D. 06/19/2021 7:10 PM Chest X-Ray 06/19/21 17:12 XR chest 1V portable CLINICAL HISTORY: SEPSIS TECHNIQUE: Single frontal radiograph of the chest was obtained. Comparison: Comparison is made to chest one view 09/11/[address] chest on 09/01/2019 FINDINGS: No lines and tubes are seen. The cardiomediastinal silhouette is normal. Multifocal airspace opacities are seen. No evidence of pleural effusion or pneumothorax. IMPRESSION: Multifocal airspace opacities may represent atelectasis, pneumonia, and/or aspiration. ACT 112: Negative or not required by law. Electronically signed by: Lul Nam M.D. 06/19/2021 6:26 PM ECG Data Interpretation: Sinus rhythm with rate 92. NE QRS and QTc intervals within normal limits. No ST elevation or ST depression. PVCs present. There is baseline wander and artifact due to patient's respiratory distress and movement. MDM Narrative 1711: The patient was evaluated in room C9. A complete history and physical exam was performed Cardiac monitoring: An order was placed for continuous cardiac monitoring. The monitor shows a rate of 90 with sinusrhythm Patient was found to be hypoxic on room air. Patient was placed on supplemental oxygen via nasal cannula which improved his oxygen saturation. EMR reviewed. Patient was seen in the emergency department 3 days ago and tested positive for COVID-19. Patient is hypoxic we will treat the patient with Decadron 6 mg IV push. Will obtain CT of the chest given his reported hemoptysis and Covid positive. 1918: Vital signs stable on supplemental oxygen via nasal cannula. Labs within normal limits. Imaging shows no pulmonary embolus but does show bilateral groundglass opacities. Patient will be admitted to the medicine any hospitalist team Dr. Ortega team notified. Impression & Plan Hypoxia, 2019 novel coronavirus-infected pneumonia (NCIP) Critical Care Time Critical Care Time: Yes Total Critical Care Time: 56 I have personally spent greater than 56 minutes of critical care time in the direct management of this patient. This includes bedside care, interpretation of diagnostic studies, and testing, discussion with consultants, patient, and family members, and other required patient management activities. This 56 minutes is in excess of all separately billable procedures. Discharge Plan Visit Data Chief Complaint: Shortness of Breath/Dyspnea Stated Complaint: SOB, COUGH, COVID +, BLOOD IN MUCUS WHEN COUGHING Discharge Problem: Hypoxia, 2019 novel coronavirus-infected pneumonia (NCIP) Patient Disposition: Admitted As Inpatient Forms Stand Alone Forms: My [facility] Prescriptions Prescriptions: No Action losartan 100 mg tablet 100 mg PO DAILY Qty: 90 RF: 3 Farxiga 5 mg tablet 5 mg PO DAILY Qty: 90 RF: 3 metformin 500 mg tablet extended release 24 hr 1,000 mg PO BID Qty: 360 RF: 3 rosuvastatin 5 mg tablet 5 mg PO DAILY Qty: 90 RF: 3 (DME) lancets [FreeStyle Lancets] 28 gauge misc See Dose Instructions .ROUTE .MEDSUPPLY Qty: 25 RF: 0 (DME) FreeStyle Lite Strips strip See Dose Instructions .ROUTE .MEDSUPPLY Qty: 10 RF: 0 magnesium oxide 400 mg magnesium tablet 400 mg PO DAILY RF: 0 ferrous sulfate 325 mg (65 mg iron) tablet,delayed release (DR/EC) 65 mg PO DAILY RF: 0 cyanocobalamin (vitamin B-12) [Vitamin B-12] 1 ea PO DAILY RF: 0 aspirin 81 mg tablet,delayed release (DR/EC) 81 mg PO DAILY RF: 0 Breo Ellipta 100-25 mcg/dose blister with device 1 puffs INH DAILY PRN (Reason: COPD) RF: 0 benzonatate 200 mg capsule 200 mg PO TID PRN (Reason: cough) Qty: 30 RF: 0 azithromycin [Zithromax] 500 mg tablet 500 mg PO DAILY 5 Days Qty: 5 RF: 0 Referrals Referrals: Andrea Redmond MD [Primary Care Provider] -
[2021-06-19 17:48] LABS: Base Excess VBG 0.5 mEq/L; HCO3 VBG 26 mmol/L; PCO2 VBG 46 mmHg (38-50); PO2 VBG 29 mmHg; pH VBG 7.37 (7.36-7.41)
[2021-06-19 17:49] LABS: Hematocrit (blood only) 40.6 % (42-52); Hemoglobin 13.6 g/dL (14.0-18.0); Immature Granulocytes # (auto) 0.01 K/uL (0.00-0.02); Immature Granulocytes % (auto) 0.3 %; Lymphocytes # (auto) 0.62 K/uL (1.2-3.4); Lymphocytes % (auto) 17.2 %; Mean Corpuscular Hgb Conc 33.5 g/dL (32-36); Mean Corpuscular Volume 92.5 fL (80-100); Mean Platelet Volume 9.1 fL (7.4-10.4); Monocytes # (auto) 0.36 K/uL (0.11-0.59); Neutrophils # (auto) 2.61 K/uL (1.4-6.5); Neutrophils % (auto) 72.5 %; Platelet Count 162 K/uL (130-400); RDW Coefficient of Variation 13.5 % (11.5-14.5); RDW Standard Deviation 45.9 fL (36.4-46.3); Red Blood Count 4.39 M/uL (4.7-6.1)
[2021-06-19 17:49] LABS: Oxygen Saturation VBG < 60.0 %
[2021-06-19 18:03] LABS: Partial Thromboplastin Ratio 1.2; Partial Thromboplastin Time 31.1 Seconds (21.0-31.0); Prothrombin Time 9.9 Seconds (9.0-12.0)
[2021-06-19 18:06] LABS: Albumin Level 3.1 gm/dl (3.4-5.0); BUN Creatinine Ratio 18.6 (10-20); Calcium 8.8 mg/dl (8.5-10.1); Creatinine Clr Calc Pharmacy 82.9 ml/min; Est GFR (African American) 95.8 ml/min; Est GFR (Non-African American) 82.6 ml/min; Magnesium 2.1 mg/dl (1.8-2.4); Potassium 3.7 mmol/L (3.5-5.1)
[2021-06-19 18:16] LABS: Albumin Globulin Ratio 0.8 (0.9-2); Bilirubin,Total 0.7 mg/dl (0.2-1); Globulin 3.8 gm/dl (2.5-4.0); Total Protein 6.9 gm/dl (6.4-8.2); Troponin I 0.018 ng/ml (0-0.045)
--- NOTE | 2021-06-19 18:28 | XRay Report ---
XR chest 1V portable CLINICAL HISTORY: SEPSIS TECHNIQUE: Single frontal radiograph of the chest was obtained. Comparison: Comparison is made to chest one view 09/11/[address] chest on 09/01/2019 FINDINGS: No lines and tubes are seen. The cardiomediastinal silhouette is normal. Multifocal airspace opacitie s are seen. No evidence of pleural effusion or pneumothorax. IMPRESSION: Multifocal airspace opacities may represent atelectasis, pneumonia, and/or aspiration. ACT 112: Negative or not required by law. Electronically signed by: Lul Nam M.D. 06/19/2021 6:26 PM
[2021-06-19] MEDS ORDERED: OPTIRAY 320 125ml IV ONE (19:01)
--- NOTE | 2021-06-19 19:11 | CT Scan Report ---
CT angio chest PE protocol CLINICAL HISTORY: ro PE Covid pneumonia. TECHNIQUE: Multidetector row helical CT of the chest was performed. Coronal and sagittal reformations were obtained. Coronal and sagittal MIPS were obtained from the axial data set and were submitted fo r review. Automated dose lowering techniques and/or adjustment according to patient size were utiliz ed for this exam. Comparison: Comparison is made to CT chest 06/16/2019 FINDINGS: Lungs and pleura: Multifocal consolidative and groundglass opacities are seen. Heart and pericardium: Heart size is normal. No pericardial effusion. Vessels: Moderate atherosclerotic changes in the aorta and coronary arteries. No evidence of pulmonar y embolus. Mediastinum and cameron: Unremarkable. Chest wall and lower neck: Subcentimeter thyroid nodules are noted which do not require follow-up by ACR criteria. Abdomen: Unremarkable. Bones: Unremarkable. IMPRESSION: 1. No evidence of pulmonary embolism. 2. Multifocal airspace opacities compatible with viral pneumonia. ACT 112: Negative or not required by law. Electronically signed by: Lul Nam M.D. 06/19/2021 7:10 PM
[2021-06-19] MEDS ORDERED: REMDESIVIR 200 MG in SODIUM CHLORIDE 0.9% 210 ML IV STA (19:58)
[2021-06-19] MEDS ORDERED: AZITHROMYCIN 500 MG in DEXTROSE 5% 250 ML IV ONE (19:58)
[2021-06-19] MEDS ORDERED: FUROSEMIDE 40 MG/4 ML VIAL IV ONE (19:58)
--- NOTE | 2021-06-19 20:01 | History & Physical Report ---
Date of Service June 19, 2021 Assessment & Plan (1) Acute respiratory failure with hypoxia: (2) 2019 novel coronavirus-infected pneumonia (NCIP): (3) Type 2 diabetes mellitus: (4) Sleep apnea: (5) Hypertension: Plan: 65 yo M Hx COPD, DM2, CAD, HLD, DAVID admitted for acute hypoxic respiratory failure in the setting of acute COVID-19 illness and pneumonia. Acute hypoxic respiratory failure, COVID-19 pneumonia, Hx DAVID and restrictive lung disease: Presented with hypoxia requiring 4 L nasal cannula in the setting of COVID-19 diagnosis on 06/16/2021. Patient is not on supplemental oxygen at baseline. Patient with a history of restrictive lung disease suspected to be secondary to body habitus; follows with [facility] and is to have repeat PFTs in spring 2021. Chest x-ray and CTA chest today with diffuse patchy opacities suggestive of viral pneumonia. No evidence of superimposed bacterial process or PE. Procal negative. Received dexamethasone 6 mg IV x1 in the ER, will continue this daily x10 days. We will start remdesivir x5 days; patient's GFR normal. We will endeavor to keep patient clinically dry; Lasix 40 mg IV x1 given as patient received fluid in the ER and has some crackles on exam. Titrate supplemental oxygen to a SPO2 of greater than 90%. Azithromycin 500 mg daily for anti-inflammatory effect. Mucinex 1200 mg twice daily. Incentive spirometry ordered. CPAP qHS and as needed. DM2: Patient's last A1c on 03/21/2021 of 6.8%. Hold home medications in favor of basal/bolus insulin while admitted. Titrate as needed, especially in the setting of high-dose IV steroids. Hypertension: Continue losartan. Hyperlipidemia: Continue Crestor. CODE STATUS: Full code FEN: DM 2, low-sodium diet DVT prophylaxis: 0.5 mg/kg (50mg) SQ BID Dispo: Med/Surg with Telemetry History of Present Illness Chief Complaint: shortness of breath Primary Care Provider: Andrea Redmond MD 65 yo M Hx restrictive lung disease, DM2, CAD, HLD, DAVID presented to the ER for 2 days of worsening hypoxia in the setting of COVID-19 diagnosis on 06/16/2021. He was seen by his PCP on 06/18 and at that time was advised to pursue monoclonal antibodies; he deferred this treatment. He is not COVID-19 vaccinated. He has been checking his pulse ox at home and reports that he kept seeing his oxygen saturation dipped and throughout the day has been feeling more and more short of breath and so decided to come to the ER. Patient denies complaints of chest pain or palpitations, nausea, vomiting, diarrhea, fevers or chills. He reports that he was in contact with a family member who was not tested for COVID-19 but did have URI symptoms last week. In the ER patient was noted to be saturating at 83% on room air, improved to 93% on 4 L nasal cannula. Vitals otherwise stable. Chest x-ray with bilateral patchy infiltrates consistent with COVID-19 pneumonia. Lab work notable for leukopenia and mildly elevated AST, negative pro-Gagan, detectable (though not elevated) troponin at 0.018. Chest CTA performed without evidence of pulmonary embolism, but with multifocal airspace opacities compatible with viral pneumonia. In the ER patient received IV fluids and dexamethasone 6 mg IV x1. Hospitalist service was consulted for admission for acute hypoxic respiratory failure and COVID-19 pneumonia. Allergies Allergy/AdvReac Type Severity Reaction Status Date / Time No Known Allergies Allergy Verified 06/19/21 19:22 Home Medications Medication Instructions Recorded Confirmed Type aspirin 81 mg tablet,delayed 81 mg PO DAILY tab 02/03/19 06/19/21 History release blood sugar diagnostic (FreeStyle #10 ea 02/03/19 03/21/21 History Lite Strips) lancets 28 gauge (FreeStyle #25 ea 02/03/19 03/21/21 History Lancets) ferrous sulfate 325 mg (65 mg 65 mg PO DAILY tab 08/22/19 06/19/21 History iron) tablet,delayed release magnesium oxide 400 mg PO PM 08/22/19 06/19/21 History losartan 100 mg tablet 100 mg PO DAILY #90 tab 06/17/20 06/19/21 Rx Farxiga 5 mg tablet (dapagliflozin) 5 mg PO DAILY #90 tab NS 07/16/20 06/19/21 Rx metformin 500 mg tablet,extended 1,000 mg PO BID #360 tab 10/14/20 06/19/21 Rx release 24 hr rosuvastatin 5 mg tablet 5 mg PO DAILY #90 tab 02/13/21 06/19/21 Rx cyanocobalamin (vitamin B-12) 1 ea PO DAILY 03/21/21 06/19/21 History [Vitamin B-12] benzonatate 200 mg capsule 200 mg PO TID PRN #30 cap 06/18/21 06/19/21 Rx Past Med/Surg History Medical History Allergic rhinitis Coronary artery calcification Diabetes Elevated transaminase level Fatty liver Hernia History of colon polyps Hypertension Inguinal hernia Nocturnal hypoxemia Obesity Sleep apnea Splenic artery aneurysm Surgical History History of repair of patent ductus arteriosus S/P carpal tunnel release S/P decompression of ulnar nerve Family History Father Colon cancer Other Family history non-contributory Social History Smoking Status: Never smoker Second Hand Exposure: No; Hx Alcohol Use: No Hx Substance Use: No Preferred Language: Amharic Communication Ability: Effective Visual Impairment: Diminished Hearing Ability: Normal Hat Blocker Required: No Beliefs That Will Affect Care: None marital status: Current Living Situation: Family Current Living Situation Comment: Home with daughter current occupational status: retired current occupation: retired from [employer], [employer] How many Children do You have: 2 Feels Safe at Home: Yes Safety Concerns: Feels Safe At This Time Childhood Exposure to Second-Hand Smoke: Yes caffeine: No Dental Care, Regularly: Yes Physical Activity Frequency: Does not Exercise Seatbelt Use: sometimes Sunscreen Use: Yes Do you think of yourself as: straight/heterosexual Assistive Devices: None Review of Systems Review of Systems: All systems reviewed & are unremarkable except as noted in HPI & below Constitutional: + malaise; no fever and no chills Respiratory: + dyspnea; no cough Cardiovascular: no chest pain, no palpitations and no edema Gastrointestinal: no abdominal pain, no constipation and no diarrhea/loose stools Physical Exam Constitutional: WD/WN, vitals as above Eyes: PERRL, conjunctivae normal, anicteric sclerae ENMT: external ear and nose normal, oropharynx normal Neck: normal visual inspection Respiratory: Diffuse rhonchi bilaterally, intermittent end-expiratory wheeze. Bibasilar crackles. Cardiovascular: RRR, no murmur, no edema Gastrointestinal (Abdomen): normal bowel sounds, soft, nontender, no hepatosplenomegaly Musculoskeletal: no cyanosis or clubbing, extremities motor strength 5/5 Skin: no rashes, warm and dry Neurologic: AAOx3, normal speech. Bilateral UE, LE, and face without sensory or motor deficits. No tremor. Psychiatric: A+Ox3, euthymic affect Results & Data Results & Data ([facility]) Vital Signs (Past 12 Hours) Vital Signs Temp Pulse Pulse Resp BP BP Pulse Ox 06/19/21 18:29 37 C 06/19/21 18:00 121/72 06/19/21 17:38 94 H 24 129/72 93 06/19/21 17:34 95 H 22 129/72 93 06/19/21 17:28 93 H 22 94 06/19/21 17:02 39.1 C H 95 H 22 126/67 83 L Supervising Physician Co-Signing Physician Notes Attending addendum: I have physically seen this patient, have supervised the medical residents activities, and agree with the H&P unless as otherwise noted. Assessment and Plan: COVID-19 pneumonia with hypoxia/acute respiratory failure- Dexamethasone 6 mg IV daily Remdesivir IV per protocol Azithromycin 500 mg IV daily Guaifenesin extended release 12 mg p.o. twice daily Zinc sulfate 220 mg p.o. every morning Vitamin D 5000 international units p.o. every morning albuterol HFA 2 puffs every 2 hours as needed Diabetes mellitus- Hold Metformin Place on Accu-Cheks before meals and at bedtime with NovoLog coverage per scale Remaining orders and notations as noted Resident Activity Tracking Resident Involvement: Resident Care Provided Care Provided: Adult Hospital Medicine (1) Hypertension Hypertension type: primary hypertension Qualified Code(s): I10 - Essential (primary) hypertension
[2021-06-19] MEDS: ENOXAPARIN INJ 60 MG/0.6 ML SYR SQ SCH (20:57)
[2021-06-19] MEDS ORDERED: GLUCAGON FOR INJ 1 MG VIAL SQ PRN (21:35)
[2021-06-19] MEDS ORDERED: GLUCOSE 10 TABS/TUBE PO PRN (21:35)
[2021-06-19] MEDS ORDERED: CARBOHYDRATES FOR HYPOGLYCEMIA PO PRN (21:35)
[2021-06-19] MEDS ORDERED: ACETAMINOPHEN 325 MG TAB PO PRN (21:35)
[2021-06-19] MEDS ORDERED: DEXTROSE 50% 50 ML SYRINGE IV PRN (21:35)
[2021-06-19] MEDS ORDERED: GLUCOSE 40% GEL 15 GM TUBE PO PRN (21:35)
[2021-06-19] MEDS: INSULIN GLARGINE SOLOSTAR 100 UNITS/ML 3 ML PEN SC SCH (22:19)
[2021-06-19] MEDS: INSULIN ASPART PER UNIT SC SCH (22:19)
[2021-06-19] MEDS: guaiFENesin 600 MG TABCR PO SCH (22:21)
[2021-06-19] MEDS: SODIUM CHLORIDE 0.9% 10ML FLUSH IV SCH (23:42)
[2021-06-20] MEDS: BENZONATATE 100 MG CAPSULE PO PRN ×3 (05:36→23:25)
[2021-06-20 06:43] LABS: Hematocrit (blood only) 40.6 % (42-52); Hemoglobin 13.6 g/dL (14.0-18.0); Red Blood Count 4.41 M/uL (4.7-6.1); White Blood Count 3.09 K/uL (4.8-10.8)
[2021-06-20 06:44] LABS: Basophils # (auto) 0.01 K/uL (0-0.2); Basophils % (auto) 0.3 %; Immature Granulocytes # (auto) 0.02 K/uL (0.00-0.02); Immature Granulocytes % (auto) 0.6 %; Lymphocytes # (auto) 0.43 K/uL (1.2-3.4); Lymphocytes % (auto) 13.9 %; Mean Corpuscular Hemoglobin 30.8 pg (25-34); Mean Corpuscular Hgb Conc 33.5 g/dL (32-36); Mean Corpuscular Volume 92.1 fL (80-100); Mean Platelet Volume 9.2 fL (7.4-10.4); Monocytes # (auto) 0.25 K/uL (0.11-0.59); Monocytes % (auto) 8.1 %; Neutrophils # (auto) 2.38 K/uL (1.4-6.5); Neutrophils % (auto) 77.1 %; Platelet Count 159 K/uL (130-400); RDW Coefficient of Variation 13.4 % (11.5-14.5); RDW Standard Deviation 44.8 fL (36.4-46.3)
[2021-06-20 07:14] LABS: Albumin Level 2.9 gm/dl (3.4-5.0); BUN Creatinine Ratio 25.4 (10-20); Calcium 8.6 mg/dl (8.5-10.1); Creatinine Clr Calc Pharmacy 92.3 ml/min; Est GFR (African American) 105.5 ml/min; Potassium 3.7 mmol/L (3.5-5.1)
[2021-06-20 07:17] LABS: Albumin Globulin Ratio 0.7 (0.9-2); Bilirubin,Total 0.9 mg/dl (0.2-1); Globulin 3.9 gm/dl (2.5-4.0); Total Protein 6.8 gm/dl (6.4-8.2)
[2021-06-20] MEDS: INSULIN ASPART PER UNIT SC SCH ×4 (09:26→20:07)
[2021-06-20] MEDS: dexAMETHasone 6 MG in SYRINGE 0 ML IV SCH (09:27)
[2021-06-20] MEDS: ASPIRIN 81 MG ECTAB PO SCH (09:55)
[2021-06-20] MEDS: guaiFENesin 600 MG TABCR PO SCH ×2 (09:55→20:04)
[2021-06-20] MEDS: ENOXAPARIN INJ 60 MG/0.6 ML SYR SQ SCH ×2 (09:55→20:04)
[2021-06-20] MEDS: FERROUS SULFATE 325 MG TAB PO SCH (09:56)
[2021-06-20] MEDS: FLUTICASONE/VILANTEROL 100/25MCG 14 PUFFS/INHALER INH SCH (09:56)
[2021-06-20] MEDS: INSULIN GLARGINE SOLOSTAR 100 UNITS/ML 3 ML PEN SC SCH ×2 (09:57→20:04)
[2021-06-20] MEDS: LOSARTAN POTASSIUM 50 MG TAB PO SCH (10:01)
[2021-06-20 10:26] LABS: Appearance Urine Clear (Clear); Bacteria Urine Automated Negative (Negative); Bilirubin Urine Negative (Negative); Blood Urine 1+ (Negative); Color Urine Dark Yellow; Glucose Urine UA 3+ (Negative); Ketones Urine 1+ (Negative); Leukocyte Esterase Urine Negative (Negative); Nitrite Urine Negative (Negative); Protein Urine 1+ (Negative); RBC Urine Automated 0-4 /hpf (0-4); Specific Gravity Urine 1.037 (1.000-1.030); Urobilinogen Urine Negative (Negative); pH Urine 5.5 (4.5-7.5)
[2021-06-20] MEDS: ROSUVASTATIN CALCIUM 5 MG TAB PO SCH (12:07)
--- NOTE | 2021-06-20 13:01 | Hospitalist Progress Note ---
Date of Service June 20, 2021 Assessment & Plan (1) Acute respiratory failure with hypoxia: Plan: due to COVID pneumonia treating with dexamethasone 6mg IV daily and Remdesivir give another dose of Lasix 20mg IV today for negative fluid balance up to 11L on oxy mask, no distress at all, talking in complete sentences ambulating to bathroom without significant dyspnea encouraged prone position, he says the best he can do is lay on his side (2) 2019 novel coronavirus-infected pneumonia (NCIP): Plan: sick for 7 days, no treatment prior to admission dexamethasone 6mg IV daily, day 2 Remdesivir IV daily, day 2 Lasix for negative fluid balance check CRP tomorrow, right now he is not on enough oxygen to qualify for baricitinib (3) Type 2 diabetes mellitus: Plan: Lantus 10 units BID, Novolog SS sugars have been > 200, eating well will adjust insulin regimen (4) Sleep apnea: (5) Hypertension: Plan: BP is stable, continue Losartan giving lasix Admission and Anticipated Discharge Date Admission Date: June 19, 2021 Subjective patient doing well, breathing easy with 11L oxy mask, no fever, minimal cough eating and drinking more than he was at home he confirmed he has been sick about 7 days now, gradually got worse at home discussed importance of laying on his side, prone would be best but he cannot do that no diarrhea, no chest pain, no nausea right now reviewed chart and labs Review of Systems Review of Systems: All systems reviewed & are unremarkable except as noted in Subjective Respiratory: + cough, + dyspnea and + dyspnea on exertion; no sputum production Physical Exam Physical Exam: General: well developed, overweight male, no acute distress, comfortable Neck: supple, trachea midline, normal thyroid Lungs: clear to auscultation bilaterally, normal respiratory effort, no accessory muscle use, no distress Heart: regular S1 and S2, no murmur, peripheral pulses normal, capillary refill normal, no edema Abdomen: soft, NT, ND, + BS, no hepatomegaly, normal to percussion Extremities: normal in appearance, no cyanosis, no petechiae, strength is 5/5 bilaterally Neuro: awake, cooperative, moves all extremities, no focal motor deficits, CN II-XII intact, sensation in extremities intact, normal speech Skin: warm, dry, no rash, normal turgor Psych: Awake, alert oriented x 3, euthymic affect Results & Data Results & Data ([facility]) Vital Signs (Past 12 Hours) Vital Signs Temp Pulse Pulse Resp BP Pulse Ox 06/20/21 10:56 37.0 C 78 20 143/79 H 94 06/20/21 07:24 36.5 C 76 18 124/81 95 06/20/21 07:00 76 06/20/21 06:07 87 L 06/20/21 04:41 70 06/20/21 04:17 36.6 C 74 20 135/88 92 Laboratory Results Laboratory Results - last 24 hr 06/19/21 06/19/21 06/19/21 17:28 17:28 17:28 WBC 3.60 L RBC 4.39 L Hgb 13.6 L Hct 40.6 L MCV 92.5 MCH 31.0 MCHC 33.5 RDW Std Deviation 45.9 RDW Coeff of Donita 13.5 Plt Count 162 MPV 9.1 Immature Gran % (Auto) 0.3 Neut % (Auto) 72.5 Lymph % (Auto) 17.2 [place] % (Auto) 10.0 Eos % (Auto) 0.0 Baso % (Auto) 0.0 Neut # (Auto) 2.61 Lymph # (Auto) 0.62 L [place] # (Auto) 0.36 Eos # (Auto) 0.00 Baso # (Auto) 0.00 Immature Gran # (Auto) 0.01 PT INR APTT PTT Ratio VBG pH VBG pCO2 VBG pO2 VBG HCO3 VBG O2 Saturation VBG Base Excess Barometric Pressure Sodium 138 Potassium 3.7 Chloride 106 Carbon Dioxide 27 Anion Gap 5.0 BUN 18 Creatinine 0.96 Est Cr Clr Drug Dosing 82.9 Est GFR ( Amer) 95.8 Est GFR (Non-Af Amer) 82.6 BUN/Creatinine Ratio 18.6 Glucose 175 H POC Glucose Lactate Calcium 8.8 Magnesium 2.1 Total Bilirubin 0.7 AST 51 H ALT 35 Alkaline Phosphatase 62 Troponin I 0.018 Total Protein 6.9 Albumin 3.1 L Globulin 3.8 Albumin/Globulin Ratio 0.8 L Procalcitonin 0.42 Urine Color Urine Appearance Urine pH Ur Specific [place] Urine Protein Urine Glucose (UA) Urine Ketones Urine Blood Urine Nitrite Urine Bilirubin Urine Urobilinogen Ur Leukocyte Esterase Urine WBC (Auto) Urine RBC (Auto) U Hyaline Cast (Auto) U Epithel Cells (Auto) Urine Bacteria (Auto) 06/19/21 06/19/21 06/19/21 17:28 17:34 17:36 WBC RBC Hgb Hct MCV MCH MCHC RDW Std Deviation RDW Coeff of Donita Plt Count MPV Immature Gran % (Auto) Neut % (Auto) Lymph % (Auto) [place] % (Auto) Eos % (Auto) Baso % (Auto) Neut # (Auto) Lymph # (Auto) [place] # (Auto) Eos # (Auto) Baso # (Auto) Immature Gran # (Auto) PT 9.9 INR 1.0 APTT 31.1 H PTT Ratio 1.2 VBG pH 7.37 VBG pCO2 46 VBG pO2 29 VBG HCO3 26 VBG O2 Saturation < 60.0 VBG Base Excess 0.5 Barometric Pressure 729.4 Sodium Potassium Chloride Carbon Dioxide Anion Gap BUN Creatinine Est Cr Clr Drug Dosing Est GFR ( Amer) Est GFR (Non-Af Amer) BUN/Creatinine Ratio Glucose POC Glucose Lactate 1.5 Calcium Magnesium Total Bilirubin AST ALT Alkaline Phosphatase Troponin I Total Protein Albumin Globulin Albumin/Globulin Ratio Procalcitonin Urine Color Urine Appearance Urine pH Ur Specific [place] Urine Protein Urine Glucose (UA) Urine Ketones Urine Blood Urine Nitrite Urine Bilirubin Urine Urobilinogen Ur Leukocyte Esterase Urine WBC (Auto) Urine RBC (Auto) U Hyaline Cast (Auto) U Epithel Cells (Auto) Urine Bacteria (Auto) 06/19/21 06/20/21 06/20/21 22:03 05:33 06:14 WBC 3.09 L RBC 4.41 L Hgb 13.6 L Hct 40.6 L MCV 92.1 MCH 30.8 MCHC 33.5 RDW Std Deviation 44.8 RDW Coeff of Donita 13.4 Plt Count 159 MPV 9.2 Immature Gran % (Auto) 0.6 Neut % (Auto) 77.1 Lymph % (Auto) 13.9 [place] % (Auto) 8.1 Eos % (Auto) 0.0 Baso % (Auto) 0.3 Neut # (Auto) 2.38 Lymph # (Auto) 0.43 L [place] # (Auto) 0.25 Eos # (Auto) 0.00 Baso # (Auto) 0.01 Immature Gran # (Auto) 0.02 PT INR APTT PTT Ratio VBG pH VBG pCO2 VBG pO2 VBG HCO3 VBG O2 Saturation VBG Base Excess Barometric Pressure Sodium Potassium Chloride Carbon Dioxide Anion Gap BUN Creatinine Est Cr Clr Drug Dosing Est GFR ( Amer) Est GFR (Non-Af Amer) BUN/Creatinine Ratio Glucose POC Glucose 283 H 202 H Lactate Calcium Magnesium Total Bilirubin AST ALT Alkaline Phosphatase Troponin I Total Protein Albumin Globulin Albumin/Globulin Ratio Procalcitonin Urine Color Urine Appearance Urine pH Ur Specific [place] Urine Protein Urine Glucose (UA) Urine Ketones Urine Blood Urine Nitrite Urine Bilirubin Urine Urobilinogen Ur Leukocyte Esterase Urine WBC (Auto) Urine RBC (Auto) U Hyaline Cast (Auto) U Epithel Cells (Auto) Urine Bacteria (Auto) 06/20/21 06/20/21 06/20/21 06:14 07:16 10:06 WBC RBC Hgb Hct MCV MCH MCHC RDW Std Deviation RDW Coeff of Donita Plt Count MPV Immature Gran % (Auto) Neut % (Auto) Lymph % (Auto) [place] % (Auto) Eos % (Auto) Baso % (Auto) Neut # (Auto) Lymph # (Auto) [place] # (Auto) Eos # (Auto) Baso # (Auto) Immature Gran # (Auto) PT INR APTT PTT Ratio VBG pH VBG pCO2 VBG pO2 VBG HCO3 VBG O2 Saturation VBG Base Excess Barometric Pressure Sodium 140 Potassium 3.7 Chloride 107 Carbon Dioxide 26 Anion Gap 7.0 BUN 22 H Creatinine 0.86 Est Cr Clr Drug Dosing 92.3 Est GFR ( Amer) 105.5 Est GFR (Non-Af Amer) 91.0 BUN/Creatinine Ratio 25.4 H Glucose 225 H POC Glucose 223 H Lactate Calcium 8.6 Magnesium Total Bilirubin 0.9 AST 42 H ALT 34 Alkaline Phosphatase 63 Troponin I Total Protein 6.8 Albumin 2.9 L Globulin 3.9 Albumin/Globulin Ratio 0.7 L Procalcitonin Urine Color Dark Yellow Urine Appearance Clear Urine pH 5.5 Ur Specific [place] 1.037 H Urine Protein 1+ H Urine Glucose (UA) 3+ H Urine Ketones 1+ H Urine Blood 1+ H Urine Nitrite Negative Urine Bilirubin Negative Urine Urobilinogen Negative Ur Leukocyte Esterase Negative Urine WBC (Auto) 1-5 Urine RBC (Auto) 0-4 U Hyaline Cast (Auto) 5-10 H U Epithel Cells (Auto) 5-10 H Urine Bacteria (Auto) Negative 06/20/21 11:26 WBC RBC Hgb Hct MCV MCH MCHC RDW Std Deviation RDW Coeff of Donita Plt Count MPV Immature Gran % (Auto) Neut % (Auto) Lymph % (Auto) [place] % (Auto) Eos % (Auto) Baso % (Auto) Neut # (Auto) Lymph # (Auto) [place] # (Auto) Eos # (Auto) Baso # (Auto) Immature Gran # (Auto) PT INR APTT PTT Ratio VBG pH VBG pCO2 VBG pO2 VBG HCO3 VBG O2 Saturation VBG Base Excess Barometric Pressure Sodium Potassium Chloride Carbon Dioxide Anion Gap BUN Creatinine Est Cr Clr Drug Dosing Est GFR ( Amer) Est GFR (Non-Af Amer) BUN/Creatinine Ratio Glucose POC Glucose 242 H Lactate Calcium Magnesium Total Bilirubin AST ALT Alkaline Phosphatase Troponin I Total Protein Albumin Globulin Albumin/Globulin Ratio Procalcitonin Urine Color Urine Appearance Urine pH Ur Specific [place] Urine Protein Urine Glucose (UA) Urine Ketones Urine Blood Urine Nitrite Urine Bilirubin Urine Urobilinogen Ur Leukocyte Esterase Urine WBC (Auto) Urine RBC (Auto) U Hyaline Cast (Auto) U Epithel Cells (Auto) Urine Bacteria (Auto) Medications Administered Current Inpatient Medications Acetaminophen (Acetaminophen 325 Mg Tab) 650 mg PO Q4H PRN PRN Reason: Pain or Fever Stop: 07/19/21 21:34 Aspirin (Aspirin 81 Mg Ectab) 81 mg PO DAILY [facility] Stop: 07/20/21 08:59 Last Admin: 06/20/21 09:55 Dose: 81 mg Documented by: Benzonatate (Benzonatate 100 Mg Capsule) 200 mg PO TID PRN PRN Reason: cough Stop: 07/19/21 21:34 Last Admin: 06/20/21 09:27 Dose: 200 mg Documented by: Dextrose (Dextrose 50% 50 Ml Syringe) 25 - 50 ml IV UD PRN; Protocol PRN Reason: Hypoglycemia Protocol Stop: 07/19/21 21:34 Enoxaparin Sodium (Enoxaparin Inj 60 Mg/0.6 Ml Syr) 50 mg SQ Q12H [facility] Stop: 07/19/21 20:59 Last Admin: 06/20/21 09:55 Dose: 50 mg Documented by: Ferrous Sulfate (Ferrous Sulfate 325 Mg Tab) 325 mg PO DAILY [facility] Stop: 07/20/21 08:59 Last Admin: 06/20/21 09:56 Dose: 325 mg Documented by: Fluticasone/Vilanterol (Fluticasone/Vilanterol 100/25mcg 14 Puffs/Inhaler) 1 puffs INH DAILY RAKAN Stop: 07/20/21 08:59 Last Admin: 06/20/21 09:56 Dose: 1 puffs Documented by: Glucagon (Glucagon For Inj 1 Mg Vial) 1 mg SQ UD PRN; Protocol PRN Reason: Hypoglycemia Protocol Stop: 07/19/21 21:34 Glucose (Glucose 10 Tabs/Tube) 4 - 8 tabs PO UD PRN; Protocol PRN Reason: Hypoglycemia Protocol Stop: 07/19/21 21:34 Glucose (Glucose 40% Gel 15 Gm Tube) 15 - 30 gm PO UD PRN; Protocol PRN Reason: Hypoglycemia Protocol Stop: 07/19/21 21:34 Guaifenesin (Guaifenesin 600 Mg Tabcr) 1,200 mg PO BID [facility] Stop: 07/19/21 21:34 Last Admin: 06/20/21 09:55 Dose: 1,200 mg Documented by: Remdesivir 100 mg/ Sodium (Chloride) 250 mls @ 250 mls/hr IV Q24H [facility]; Protocol Stop: 06/23/21 20:59 Dexamethasone 6 mg/ Syringe 1.5 mls @ 1 mls/min IV DAILY [facility] Stop: 06/30/21 08:59 Last Admin: 06/20/21 09:27 Dose: 1 mls/min Documented by: Azithromycin 500 mg/ Dextrose 255 mls @ 125 mls/hr IV Q24H [facility] Stop: 06/27/21 20:59 Insulin Aspart (Insulin Aspart Per Unit) 0 units SC ACHS RAKAN Stop: 07/19/21 21:34 Last Admin: 06/20/21 12:13 Dose: 13 units Documented by: Insulin Glargine (Insulin Glargine Solostar 100 Units/Ml 3 Ml Pen) 10 units SC BID [facility] Stop: 07/19/21 21:34 Last Admin: 06/20/21 09:57 Dose: 10 units Documented by: Losartan Potassium (Losartan Potassium 50 Mg Tab) 100 mg PO DAILY [facility] Stop: 07/20/21 08:59 Last Admin: 06/20/21 10:01 Dose: 100 mg Documented by: Miscellaneous (Carbohydrates For Hypoglycemia ) 15 - 30 gm PO UD PRN PRN Reason: Hypoglycemia Protocol Stop: 07/19/21 21:34 Rosuvastatin Calcium (Rosuvastatin Calcium 5 Mg Tab) 5 mg PO DAILY RAKAN Stop: 07/20/21 08:59 Last Admin: 06/20/21 12:07 Dose: 5 mg Documented by: Sodium Chloride (Sodium Chloride 0.9% 10ml Flush) 30 ml IV Q24H RAKAN Stop: 06/23/21 21:01 Last Admin: 06/19/21 23:42 Dose: 30 ml Documented by: PG Care Time/CCT Total # of Minutes Spent Total Time Spent with Patient: Total time spent is greater than 50% in coordination of care (as documented) at patient's floor/unit and/or counseling patient: Coding Level of Care Code 80700 Subseq Hosp Care Lvl 3 Diagnoses Acute respiratory failure with hypoxia J96.01 2019 novel coronavirus-infected pneumonia (NCIP) U07.1; J12.82 Type 2 diabetes mellitus E11.9 Sleep apnea G47.30 Hypertension I10 Hypertension type: primary hypertension (1) Hypertension Hypertension type: primary hypertension Qualified Code(s): I10 - Essential (primary) hypertension
[2021-06-20] MEDS ORDERED: FUROSEMIDE INJ 20 MG/2 ML VIAL IV ONE (13:17)
--- NOTE | 2021-06-20 16:11 | Electrocardiogram Report ---
Test Reason : Blood Pressure : / mmHG Vent. Rate : 092 BPM Atrial Rate : 092 BPM P-R Int : 144 ms QRS Dur : 084 ms QT Int : 318 ms P-R-T Axes : 041 -06 228 degrees QTc Int : 393 ms Poor data quality, interpretation may be adversely affected Sinus rhythm with occasional Premature ventricular complexes Nonspecific ST and T wave abnormality Abnormal ECG When compared with ECG of 11-SEP-2017 18:39, Premature ventricular complexes are now Present Nonspecific T wave abnormality now evident in Inferior leads Confirmed by Nehemias Baeza ([id number]) on 06/20/2021 4:11:18 PM Referred By: REFERRED SELF Confirmed By:Nehemias Baeza
[2021-06-20] MEDS: REMDESIVIR 100 MG in SODIUM CHLORIDE 0.9% 230 ML IV SCH (20:02)
[2021-06-20] MEDS: SODIUM CHLORIDE 0.9% 10ML FLUSH IV SCH (20:03)
[2021-06-20] MEDS ORDERED: AZITHROMYCIN 500 MG in DEXTROSE 5% 250 ML IV SCH (21:00)
--- NOTE | 2021-06-21 02:50 | Billing Data ---
Date of Service June 21, 2021 Coding Level of Care Code 90264 Initial Inpt Care Lvl 3
[2021-06-21] MEDS: BENZONATATE 100 MG CAPSULE PO PRN (06:10)
[2021-06-21 07:04] LABS: Hematocrit (blood only) 39.4 % (42-52); Hemoglobin 13.3 g/dL (14.0-18.0); Immature Granulocytes # (auto) 0.03 K/uL (0.00-0.02); Immature Granulocytes % (auto) 0.6 %; Lymphocytes # (auto) 0.58 K/uL (1.2-3.4); Lymphocytes % (auto) 10.6 %; Mean Corpuscular Hemoglobin 30.9 pg (25-34); Mean Corpuscular Hgb Conc 33.8 g/dL (32-36); Mean Corpuscular Volume 91.4 fL (80-100); Mean Platelet Volume 9.4 fL (7.4-10.4); Monocytes # (auto) 0.48 K/uL (0.11-0.59); Monocytes % (auto) 8.8 %; Neutrophils # (auto) 4.36 K/uL (1.4-6.5); Platelet Count 188 K/uL (130-400); RDW Coefficient of Variation 13.1 % (11.5-14.5); RDW Standard Deviation 44.3 fL (36.4-46.3); Red Blood Count 4.31 M/uL (4.7-6.1); White Blood Count 5.45 K/uL (4.8-10.8)
[2021-06-21 07:48] LABS: Potassium 3.6 mmol/L (3.5-5.1)
[2021-06-21 07:55] LABS: Bilirubin,Total 0.5 mg/dl (0.2-1); Calcium 8.6 mg/dl (8.5-10.1); Creatinine Clr Calc Pharmacy 105.2 ml/min; Est GFR (African American) 111.6 ml/min; Est GFR (Non-African American) 96.3 ml/min
[2021-06-21 08:04] LABS: Albumin Globulin Ratio 0.8 (0.9-2); Albumin Level 2.7 gm/dl (3.4-5.0); C Reactive Protein 3.06 mg/dl (0-0.29); Globulin 3.6 gm/dl (2.5-4.0); Total Protein 6.3 gm/dl (6.4-8.2)
[2021-06-21] MEDS: LOSARTAN POTASSIUM 50 MG TAB PO SCH (08:44)
[2021-06-21] MEDS: FERROUS SULFATE 325 MG TAB PO SCH (08:44)
[2021-06-21] MEDS: ASPIRIN 81 MG ECTAB PO SCH (08:44)
[2021-06-21] MEDS: ROSUVASTATIN CALCIUM 5 MG TAB PO SCH (08:45)
[2021-06-21] MEDS: FLUTICASONE/VILANTEROL 100/25MCG 14 PUFFS/INHALER INH SCH (08:45)
[2021-06-21] MEDS: ENOXAPARIN INJ 60 MG/0.6 ML SYR SQ SCH ×2 (08:45→21:04)
[2021-06-21] MEDS: guaiFENesin 600 MG TABCR PO SCH ×2 (08:45→21:05)
[2021-06-21] MEDS: dexAMETHasone 6 MG in SYRINGE 0 ML IV SCH (08:46)
[2021-06-21] MEDS: INSULIN GLARGINE SOLOSTAR 100 UNITS/ML 3 ML PEN SC SCH ×2 (08:48→21:08)
[2021-06-21] MEDS: INSULIN ASPART PER UNIT SC SCH ×2 (08:51→13:38)
[2021-06-21] MEDS ORDERED: FUROSEMIDE INJ 20 MG/2 ML VIAL IV ONE (10:27)
--- NOTE | 2021-06-21 10:28 | Hospitalist Progress Note ---
Date of Service June 21, 2021 Assessment & Plan (1) Acute respiratory failure with hypoxia: Plan: due to COVID pneumonia treating with dexamethasone 6mg IV daily and Remdesivir, day 3 of each continue Lasix 20mg IV daily, responding well and Cr stable stable on 11L on oxy mask, no distress at all, talking in complete sentences ambulating to bathroom without significant dyspnea encouraged prone position, he says the best he can do is lay on his side (2) 2019 novel coronavirus-infected pneumonia (NCIP): Plan: sick for 7 days, no treatment prior to admission dexamethasone 6mg IV daily, day 3 Remdesivir IV daily, day 3 Lasix for negative fluid balance CRP is 3 which is encouraging (3) Type 2 diabetes mellitus: Plan: all sugars > 200, close to 300 will increase Lantus again, add NPH in morning with dexamethasone (4) Sleep apnea: (5) Hypertension: Plan: BP is stable, continue Losartan giving lasix Admission and Anticipated Discharge Date Admission Date: June 19, 2021 Subjective patient doing well, breathing easy on 11L mask, same as yesterday responded well to Lasix, give another dose today eating well, no BM since 06/18, requesting laxative told him he will be here for a week to recover, he is frustrated by that thought Review of Systems Review of Systems: All systems reviewed & are unremarkable except as noted in Subjective Respiratory: + cough, + dyspnea and + dyspnea on exertion Gastrointestinal: + constipation Physical Exam Physical Exam: General: well developed, overweight male, no acute distress, comfortable Neck: supple, trachea midline, normal thyroid Lungs: clear to auscultation bilaterally, normal respiratory effort, no accessory muscle use, no distress Heart: regular S1 and S2, no murmur, peripheral pulses normal, capillary refill normal, no edema Abdomen: soft, NT, ND, + BS, no hepatomegaly, normal to percussion Extremities: normal in appearance, no cyanosis, no petechiae, strength is 5/5 bilaterally Neuro: awake, cooperative, moves all extremities, no focal motor deficits, CN II-XII intact, sensation in extremities intact, normal speech Skin: warm, dry, no rash, normal turgor Psych: Awake, alert oriented x 3, euthymic affect Results & Data Results & Data ([facility]) Vital Signs (Past 12 Hours) Vital Signs Temp Pulse Resp BP BP Pulse Ox 06/21/21 07:40 36.4 C L 70 18 123/79 93 06/21/21 03:40 36.8 C 70 18 123/75 93 06/20/21 23:14 36.6 C 70 20 119/76 90 Laboratory Results Laboratory Results - last 24 hr 06/20/21 06/20/21 06/20/21 11:26 16:32 20:03 WBC RBC Hgb Hct MCV MCH MCHC RDW Std Deviation RDW Coeff of Donita Plt Count MPV Immature Gran % (Auto) Neut % (Auto) Lymph % (Auto) [place] % (Auto) Eos % (Auto) Baso % (Auto) Neut # (Auto) Lymph # (Auto) [place] # (Auto) Eos # (Auto) Baso # (Auto) Immature Gran # (Auto) Sodium Potassium Chloride Carbon Dioxide Anion Gap BUN Creatinine Est Cr Clr Drug Dosing Est GFR ( Amer) Est GFR (Non-Af Amer) BUN/Creatinine Ratio Glucose POC Glucose 242 H 265 H 255 H Calcium Total Bilirubin AST ALT Alkaline Phosphatase C-Reactive Protein Total Protein Albumin Globulin Albumin/Globulin Ratio 06/21/21 06/21/21 06/21/21 05:58 05:58 07:27 WBC 5.45 RBC 4.31 L Hgb 13.3 L Hct 39.4 L MCV 91.4 MCH 30.9 MCHC 33.8 RDW Std Deviation 44.3 RDW Coeff of Donita 13.1 Plt Count 188 MPV 9.4 Immature Gran % (Auto) 0.6 Neut % (Auto) 80.0 Lymph % (Auto) 10.6 [place] % (Auto) 8.8 Eos % (Auto) 0.0 Baso % (Auto) 0.0 Neut # (Auto) 4.36 Lymph # (Auto) 0.58 L [place] # (Auto) 0.48 Eos # (Auto) 0.00 Baso # (Auto) 0.00 Immature Gran # (Auto) 0.03 H Sodium 141 Potassium 3.6 Chloride 108 H Carbon Dioxide 28 Anion Gap 5.0 BUN 25 H Creatinine 0.75 Est Cr Clr Drug Dosing 105.2 Est GFR ( Amer) 111.6 Est GFR (Non-Af Amer) 96.3 BUN/Creatinine Ratio 34.0 H Glucose 218 H POC Glucose 227 H Calcium 8.6 Total Bilirubin 0.5 AST 30 ALT 30 Alkaline Phosphatase 55 C-Reactive Protein 3.06 H Total Protein 6.3 L Albumin 2.7 L Globulin 3.6 Albumin/Globulin Ratio 0.8 L Medications Administered Current Inpatient Medications Acetaminophen (Acetaminophen 325 Mg Tab) 650 mg PO Q4H PRN PRN Reason: Pain or Fever Stop: 07/19/21 21:34 Aspirin (Aspirin 81 Mg Ectab) 81 mg PO DAILY RAKAN Stop: 07/20/21 08:59 Last Admin: 06/21/21 08:44 Dose: 81 mg Documented by: Benzonatate (Benzonatate 100 Mg Capsule) 200 mg PO TID PRN PRN Reason: cough Stop: 07/19/21 21:34 Last Admin: 06/21/21 06:10 Dose: 200 mg Documented by: Dextrose (Dextrose 50% 50 Ml Syringe) 25 - 50 ml IV UD PRN; Protocol PRN Reason: Hypoglycemia Protocol Stop: 07/19/21 21:34 Enoxaparin Sodium (Enoxaparin Inj 60 Mg/0.6 Ml Syr) 50 mg SQ Q12H RAKAN Stop: 07/19/21 20:59 Last Admin: 06/21/21 08:45 Dose: 50 mg Documented by: Ferrous Sulfate (Ferrous Sulfate 325 Mg Tab) 325 mg PO DAILY RAKAN Stop: 07/20/21 08:59 Last Admin: 06/21/21 08:44 Dose: 325 mg Documented by: Fluticasone/Vilanterol (Fluticasone/Vilanterol 100/25mcg 14 Puffs/Inhaler) 1 puffs INH DAILY RAKAN Stop: 07/20/21 08:59 Last Admin: 06/21/21 08:45 Dose: 1 puffs Documented by: Furosemide (Furosemide Inj 20 Mg/2 Ml Vial) 20 mg IV ONE ONE Stop: 06/21/21 10:28 Glucagon (Glucagon For Inj 1 Mg Vial) 1 mg SQ UD PRN; Protocol PRN Reason: Hypoglycemia Protocol Stop: 07/19/21 21:34 Glucose (Glucose 10 Tabs/Tube) 4 - 8 tabs PO UD PRN; Protocol PRN Reason: Hypoglycemia Protocol Stop: 07/19/21 21:34 Glucose (Glucose 40% Gel 15 Gm Tube) 15 - 30 gm PO UD PRN; Protocol PRN Reason: Hypoglycemia Protocol Stop: 07/19/21 21:34 Guaifenesin (Guaifenesin 600 Mg Tabcr) 1,200 mg PO BID [facility] Stop: 07/19/21 21:34 Last Admin: 06/21/21 08:45 Dose: 1,200 mg Documented by: Remdesivir 100 mg/ Sodium (Chloride) 250 mls @ 250 mls/hr IV Q24H [facility]; Protocol Stop: 06/23/21 20:59 Last Infusion: 06/20/21 21:10 Dose: Infused Documented by: Dexamethasone 6 mg/ Syringe 1.5 mls @ 1 mls/min IV DAILY RAKAN Stop: 06/30/21 08:59 Last Admin: 06/21/21 08:46 Dose: 1 mls/min Documented by: Azithromycin 500 mg/ Dextrose 255 mls @ 125 mls/hr IV Q24H [facility] Stop: 06/27/21 20:59 Last Infusion: 06/20/21 22:15 Dose: Infused Documented by: Insulin Aspart (Insulin Aspart Per Unit) 0 units SC ACHS RAKAN Stop: 07/19/21 21:34 Last Admin: 06/21/21 08:51 Dose: 18 units Documented by: Insulin Glargine (Insulin Glargine Solostar 100 Units/Ml 3 Ml Pen) 15 units SC BID [facility] Stop: 07/20/21 20:59 Last Admin: 06/21/21 08:48 Dose: 15 units Documented by: Losartan Potassium (Losartan Potassium 50 Mg Tab) 100 mg PO DAILY RAKAN Stop: 07/20/21 08:59 Last Admin: 06/21/21 08:44 Dose: 100 mg Documented by: Miscellaneous (Carbohydrates For Hypoglycemia ) 15 - 30 gm PO UD PRN PRN Reason: Hypoglycemia Protocol Stop: 07/19/21 21:34 Rosuvastatin Calcium (Rosuvastatin Calcium 5 Mg Tab) 5 mg PO DAILY [facility] Stop: 07/20/21 08:59 Last Admin: 06/21/21 08:45 Dose: 5 mg Documented by: Sodium Chloride (Sodium Chloride 0.9% 10ml Flush) 30 ml IV Q24H [facility] Stop: 06/23/21 21:01 Last Admin: 06/20/21 20:03 Dose: 30 ml Documented by: PG Care Time/CCT Total # of Minutes Spent Total Time Spent with Patient: Total time spent is greater than 50% in coordination of care (as documented) at patient's floor/unit and/or counseling patient: Coding Level of Care Code 85696 Subseq Hosp Care Lvl 3 Diagnoses Acute respiratory failure with hypoxia J96.01 2019 novel coronavirus-infected pneumonia (NCIP) U07.1; J12.82 Type 2 diabetes mellitus E11.9 Sleep apnea G47.30 Hypertension I10 Hypertension type: primary hypertension (1) Hypertension Hypertension type: primary hypertension Qualified Code(s): I10 - Essential (primary) hypertension
[2021-06-21] MEDS ORDERED: POLYETHYLENE (MIRALAX) 17 GM PACK PO PRN (14:15)
[2021-06-21] MEDS: INSULIN ASPART 100 UNITS/ML 3 ML PEN SC SCH ×2 (17:48→21:06)
[2021-06-21] MEDS: REMDESIVIR 100 MG in SODIUM CHLORIDE 0.9% 230 ML IV SCH (20:57)
[2021-06-21] MEDS: SODIUM CHLORIDE 0.9% 10ML FLUSH IV SCH ×2 (21:04→22:07)
[2021-06-22] MEDS: FLUTICASONE/VILANTEROL 100/25MCG 14 PUFFS/INHALER INH SCH (08:00)
[2021-06-22] MEDS: dexAMETHasone 6 MG in SYRINGE 0 ML IV SCH (08:00)
[2021-06-22] MEDS: ROSUVASTATIN CALCIUM 5 MG TAB PO SCH (08:01)
[2021-06-22] MEDS: LOSARTAN POTASSIUM 50 MG TAB PO SCH (08:01)
[2021-06-22] MEDS: guaiFENesin 600 MG TABCR PO SCH ×2 (08:01→20:52)
[2021-06-22] MEDS: ASPIRIN 81 MG ECTAB PO SCH (08:02)
[2021-06-22] MEDS: ENOXAPARIN INJ 60 MG/0.6 ML SYR SQ SCH ×2 (08:02→20:48)
[2021-06-22] MEDS: FERROUS SULFATE 325 MG TAB PO SCH (08:02)
[2021-06-22] MEDS: FUROSEMIDE INJ 20 MG/2 ML VIAL IV SCH (08:04)
[2021-06-22] MEDS: INSULIN HUMAN NPH SC SCH (08:14)
[2021-06-22] MEDS: INSULIN ASPART 100 UNITS/ML 3 ML PEN SC SCH ×4 (08:16→21:00)
[2021-06-22] MEDS: INSULIN GLARGINE SOLOSTAR 100 UNITS/ML 3 ML PEN SC SCH ×2 (08:17→20:53)
[2021-06-22 09:46] LABS: Basophils # (auto) 0.01 K/uL (0-0.2); Basophils % (auto) 0.2 %; Eosinophils # (auto) 0.01 K/uL (0-0.5); Eosinophils % (auto) 0.2 %; Hematocrit (blood only) 42.1 % (42-52); Hemoglobin 14.4 g/dL (14.0-18.0); Immature Granulocytes # (auto) 0.03 K/uL (0.00-0.02); Immature Granulocytes % (auto) 0.5 %; Lymphocytes # (auto) 0.57 K/uL (1.2-3.4); Lymphocytes % (auto) 9.2 %; Mean Corpuscular Hemoglobin 31.1 pg (25-34); Mean Corpuscular Hgb Conc 34.2 g/dL (32-36); Mean Corpuscular Volume 90.9 fL (80-100); Mean Platelet Volume 9.5 fL (7.4-10.4); Monocytes # (auto) 0.57 K/uL (0.11-0.59); Monocytes % (auto) 9.2 %; Neutrophils # (auto) 4.98 K/uL (1.4-6.5); Neutrophils % (auto) 80.7 %; Platelet Count 234 K/uL (130-400); RDW Standard Deviation 43.3 fL (36.4-46.3); Red Blood Count 4.63 M/uL (4.7-6.1); White Blood Count 6.17 K/uL (4.8-10.8)
[2021-06-22 10:23] LABS: Albumin Level 3.1 gm/dl (3.4-5.0); BUN Creatinine Ratio 37.2 (10-20); Calcium 8.9 mg/dl (8.5-10.1); Creatinine Clr Calc Pharmacy 121.4 ml/min; Est GFR (African American) 118.3 ml/min; Est GFR (Non-African American) 102.1 ml/min; Potassium 3.4 mmol/L (3.5-5.1)
[2021-06-22 10:26] LABS: Albumin Globulin Ratio 0.8 (0.9-2); Globulin 3.8 gm/dl (2.5-4.0); Total Protein 6.9 gm/dl (6.4-8.2)
[2021-06-22 10:32] LABS: Bilirubin,Total 0.8 mg/dl (0.2-1)
[2021-06-22] MEDS ORDERED: POTASSIUM CHLORIDE CRTAB 20 MEQ TABCR PO STA ×2 (11:14→15:32)
[2021-06-22] MEDS ORDERED: SODIUM CHLORIDE 0.65% NA SOLN 45 ML (OCEAN) PRN (14:23)
--- NOTE | 2021-06-22 15:35 | Hospitalist Progress Note ---
Date of Service June 22, 2021 Assessment & Plan (1) Acute respiratory failure with hypoxia: Plan: 2nd to COVID-19 pneumonia. no evidence of complicating bacterial pneumonia. day #4 of IV dexamethasone 6mg daily. day #4 of Remdesivir. continue Lasix 20mg IV daily to keep I/O balance net negative. cont side positioning (he cannot prone). cont flutter valve + incentive spirometry. wean FiO2 as tolerated. (2) 2019 novel coronavirus-infected pneumonia (NCIP): Plan: He is about 10 days into his illness. Dexamethasone 6mg IV daily, day 4. Remdesivir IV daily, day 4. Has not met criteria for Baricitinib treatment. No evidence of any bacterial process. (3) Type 2 diabetes mellitus: Plan: uncontrolled cont lantus cont AM NPH cont novolog ac/hs adjust as needed HbA1C 6.8% earlier in the fall 2020 consider repeat while here metformin is on hold (4) Sleep apnea: (5) Hypertension: Plan: cont losartan cont lasix control adequate at this time (6) NSVT (nonsustained ventricular tachycardia): Plan: 1 episode since admission no symptoms check echo - ensure normal LV function no ischemic symptoms replace K - keep closer to 4 replace mag - keep closer to 2 telemetry (7) Hypokalemia: Plan: replace repeat BMP am check mag in am as well (8) DVT prophylaxis: Plan: lovenox 50mg BID Plan: PT, OT elizabeth son updated by phone this evening Admission and Anticipated Discharge Date Admission Date: June 19, 2021 Subjective pt had run of NSVT this afternoon he was watching football when this occurred apparently was yelling at the TV set when this happened ! had NO symptoms of palpitations had NO chest pain during the visit he was eating he had his oxymask off he had no distress despite having the oxymask off he said "how long do I need to be here? I can do this at home" some cough mild HOLDER feeling better than when he came in Review of Systems Review of Systems: gen - no fevers, no chills; eating well CV - no cp, no orthopnea; patient denies ANY chest pain episodes over the last few months pulm - denies ANY HOLDER over the last few months prior to admission GI - no N/V Physical Exam Physical Exam: gen - NAD, a/o x 3, looks good mouth - MMM neck - no JVD heart - RRR, s1 s2, no murmur lungs - good airation, no wheeze, minimal rales bases b/l abd - soft NT ND BS+ ext - no edema, pulses 2+ b/l skin - no rash Results & Data Results & Data ([facility]) Vital Signs (Past 12 Hours) Vital Signs Temp Pulse Pulse Resp BP Pulse Ox 06/22/21 15:16 36.5 C 76 20 142/87 H 94 06/22/21 14:15 60 06/22/21 11:17 36.8 C 80 16 138/83 92 06/22/21 07:36 36.5 C 74 20 129/76 90 06/22/21 06:21 85 Laboratory Results Laboratory Results - last 24 hr 06/21/21 06/21/21 06/22/21 16:13 20:06 07:32 WBC RBC Hgb Hct MCV MCH MCHC RDW Std Deviation RDW Coeff of Donita Plt Count MPV Immature Gran % (Auto) Neut % (Auto) Lymph % (Auto) [place] % (Auto) Eos % (Auto) Baso % (Auto) Neut # (Auto) Lymph # (Auto) [place] # (Auto) Eos # (Auto) Baso # (Auto) Immature Gran # (Auto) Sodium Potassium Chloride Carbon Dioxide Anion Gap BUN Creatinine Est Cr Clr Drug Dosing Est GFR ( Amer) Est GFR (Non-Af Amer) BUN/Creatinine Ratio Glucose POC Glucose 290 H 267 H 141 H Calcium Total Bilirubin AST ALT Alkaline Phosphatase Total Protein Albumin Globulin Albumin/Globulin Ratio 06/22/21 06/22/21 06/22/21 08:57 08:57 11:13 WBC 6.17 RBC 4.63 L Hgb 14.4 Hct 42.1 MCV 90.9 MCH 31.1 MCHC 34.2 RDW Std Deviation 43.3 RDW Coeff of Donita 13.0 Plt Count 234 MPV 9.5 Immature Gran % (Auto) 0.5 Neut % (Auto) 80.7 Lymph % (Auto) 9.2 [place] % (Auto) 9.2 Eos % (Auto) 0.2 Baso % (Auto) 0.2 Neut # (Auto) 4.98 Lymph # (Auto) 0.57 L [place] # (Auto) 0.57 Eos # (Auto) 0.01 Baso # (Auto) 0.01 Immature Gran # (Auto) 0.03 H Sodium 143 Potassium 3.4 L Chloride 110 H Carbon Dioxide 27 Anion Gap 7.0 BUN 24 H Creatinine 0.65 Est Cr Clr Drug Dosing 121.4 Est GFR ( Amer) 118.3 Est GFR (Non-Af Amer) 102.1 BUN/Creatinine Ratio 37.2 H Glucose 149 H POC Glucose 175 H Calcium 8.9 Total Bilirubin 0.8 AST 43 H ALT 39 Alkaline Phosphatase 63 Total Protein 6.9 Albumin 3.1 L Globulin 3.8 Albumin/Globulin Ratio 0.8 L PG Care Time/CCT Total # of Minutes Spent Total Time Spent with Patient: Total time spent is greater than 50% in coordination of care (as documented) at patient's floor/unit and/or counseling patient: Coding Level of Care Code 72758 Subseq Hosp Care Lvl 3 Diagnoses Acute respiratory failure with hypoxia J96.01 2019 novel coronavirus-infected pneumonia (NCIP) U07.1; J12.82 Type 2 diabetes mellitus E11.9 Sleep apnea G47.30 Hypertension I10 Hypertension type: primary hypertension NSVT (nonsustained ventricular tachycardia) I47.2 Hypokalemia E87.6 DVT prophylaxis Z29.9 (1) Hypertension Hypertension type: primary hypertension Qualified Code(s): I10 - Essential (primary) hypertension
[2021-06-22] MEDS: MAGNESIUM OXIDE 400 MG TAB PO SCH (16:15)
[2021-06-22] MEDS: REMDESIVIR 100 MG in SODIUM CHLORIDE 0.9% 230 ML IV SCH (19:39)
[2021-06-22] MEDS: MELATONIN 3 MG TAB PO SCH (20:47)
[2021-06-22] MEDS: SODIUM CHLORIDE 0.9% 10ML FLUSH IV SCH (20:52)
[2021-06-22] MEDS: POLYETHYLENE (MIRALAX) 17 GM PACK PO SCH (20:56)
[2021-06-23 07:22] LABS: BUN Creatinine Ratio 42.2 (10-20); Calcium 8.5 mg/dl (8.5-10.1); Creatinine Clr Calc Pharmacy 144.1 ml/min; Est GFR (African American) 127.7 ml/min; Est GFR (Non-African American) 110.2 ml/min; Potassium 3.9 mmol/L (3.5-5.1)
[2021-06-23] MEDS: POLYETHYLENE (MIRALAX) 17 GM PACK PO SCH ×2 (08:29→21:19)
[2021-06-23] MEDS: dexAMETHasone 6 MG in SYRINGE 0 ML IV SCH (08:29)
[2021-06-23] MEDS: FLUTICASONE/VILANTEROL 100/25MCG 14 PUFFS/INHALER INH SCH (08:29)
[2021-06-23] MEDS: guaiFENesin 600 MG TABCR PO SCH ×2 (08:30→21:19)
[2021-06-23] MEDS: ROSUVASTATIN CALCIUM 5 MG TAB PO SCH (08:30)
[2021-06-23] MEDS: ENOXAPARIN INJ 60 MG/0.6 ML SYR SQ SCH ×2 (08:30→21:18)
[2021-06-23] MEDS: FUROSEMIDE INJ 20 MG/2 ML VIAL IV SCH (08:30)
[2021-06-23] MEDS: LOSARTAN POTASSIUM 50 MG TAB PO SCH (08:31)
[2021-06-23] MEDS: ASPIRIN 81 MG ECTAB PO SCH (08:31)
[2021-06-23] MEDS: FERROUS SULFATE 325 MG TAB PO SCH (08:31)
[2021-06-23] MEDS: INSULIN ASPART 100 UNITS/ML 3 ML PEN SC SCH ×4 (08:32→21:19)
[2021-06-23] MEDS: INSULIN GLARGINE SOLOSTAR 100 UNITS/ML 3 ML PEN SC SCH ×2 (08:32→21:20)
[2021-06-23] MEDS: INSULIN HUMAN NPH SC SCH (08:33)
[2021-06-23] MEDS: MAGNESIUM OXIDE 400 MG TAB PO SCH (08:42)
--- NOTE | 2021-06-23 11:33 | Hospitalist Progress Note ---
Date of Service June 23, 2021 Assessment & Plan (1) Acute respiratory failure with hypoxia: Plan: resolving nicely 2nd to COVID-19 pneumonia. no evidence of complicating bacterial pneumonia. no evidence of any complicating acute CHF although using lasix 20mg IV daily to keep I/O balance negative day #5 of IV dexamethasone 6mg daily. day #5 of Remdesivir. cont side positioning (he cannot prone). cont flutter valve + incentive spirometry. wean FiO2 as tolerated. 2-step tomorrow or Wednesday if he is down to 2 L NC O2. (2) 2019 novel coronavirus-infected pneumonia (NCIP): Plan: He is about 11 days into his illness. Dexamethasone 6mg IV daily, day 5. Remdesivir IV daily, day 5. Has not met criteria for Baricitinib treatment. No evidence of any bacterial process. Improving. (3) Type 2 diabetes mellitus: Plan: uncontrolled cont lantus cont AM NPH cont novolog ac/hs HbA1C 6.8% earlier in the fall 2020 consider repeat while here metformin is on hold currently - will resume in AM with breakfast (4) Sleep apnea: (5) Hypertension: Plan: cont losartan cont lasix control adequate at this time (6) NSVT (nonsustained ventricular tachycardia): Plan: 1 episode since admission no symptoms checked echo - normal LV function; normal wall motion no ischemic symptoms (7) Hypokalemia: Plan: replaced resolved mag wnl (8) DVT prophylaxis: Plan: lovenox 50mg BID check dimer in am to risk stratify for potential for VTE post-d/c [id number] consider xarelto prophy post-d/c x 30 days (9) Aortic root dilatation: Plan: 4cm seen incidentally on echo mild will need surveillance of this and good BP control will tour counselor patient Plan: PT, OT elizabeth completed ok for home son updated by phone this evening once again home tomorrow? wednesday? depends on O2 wean Admission and Anticipated Discharge Date Admission Date: June 19, 2021 Subjective pt w/o complaints feels great asks again about d/c home no dyspnea or HOLDER minimal cough no chest pain still no bowel movement slept better last pm eating well Review of Systems Review of Systems: gen - no fevers or chills CV - no orthopnea pulm - no sputum GI - no abd pain despite constipation Physical Exam Physical Exam: gen - NAD, a/o x 3, looks great; during the visit I took him from 8 L NC to 6; sats stayed upper 90s; then took him to 4 L NC - sats stayed mid-90s; nurse informed mouth - MMM neck - no JVD heart - RRR, s1 s2, no murmur lungs - good airation, no wheeze, rales bases b/l abd - soft NT ND BS+ ext - no edema, pulses 2+ b/l skin - no rash Results & Data Results & Data ([facility]) Vital Signs (Past 12 Hours) Vital Signs Temp Pulse Pulse Resp BP Pulse Ox 06/23/21 11:18 36.6 C 75 16 133/84 96 06/23/21 08:00 82 06/23/21 07:34 36.4 C L 71 16 138/79 96 06/23/21 04:27 72 128/81 06/23/21 03:39 67 92 Laboratory Results Laboratory Results - last 24 hr 06/22/21 06/22/21 06/23/21 16:47 20:06 06:08 Sodium 144 Potassium 3.9 Chloride 111 H Carbon Dioxide 27 Anion Gap 6.0 BUN 23 H Creatinine 0.54 L Est Cr Clr Drug Dosing 144.1 Est GFR ( Amer) 127.7 Est GFR (Non-Af Amer) 110.2 BUN/Creatinine Ratio 42.2 H Glucose 80 POC Glucose 219 H 204 H Calcium 8.5 Magnesium 2.0 AST 40 H 06/23/21 07:56 Sodium Potassium Chloride Carbon Dioxide Anion Gap BUN Creatinine Est Cr Clr Drug Dosing Est GFR ( Amer) Est GFR (Non-Af Amer) BUN/Creatinine Ratio Glucose POC Glucose 83 Calcium Magnesium AST PG Care Time/CCT Total # of Minutes Spent Total Time Spent with Patient: Total time spent is greater than 50% in coordination of care (as documented) at patient's floor/unit and/or counseling patient: Coding Level of Care Code 03853 Subseq Hosp Care Lvl 3 Diagnoses Acute respiratory failure with hypoxia J96.01 2019 novel coronavirus-infected pneumonia (NCIP) U07.1; J12.82 Type 2 diabetes mellitus E11.9 Sleep apnea G47.30 Hypertension I10 Hypertension type: primary hypertension NSVT (nonsustained ventricular tachycardia) I47.2 Hypokalemia E87.6 DVT prophylaxis Z29.9 Aortic root dilatation I77.810 (1) Hypertension Hypertension type: primary hypertension Qualified Code(s): I10 - Essential (primary) hypertension
--- NOTE | 2021-06-23 11:59 | XCELERA ---
[id number]
[2021-06-23] MEDS ORDERED: bisacodyL 5 MG TABEC PO ONE (12:07)
[2021-06-23] MEDS: REMDESIVIR 100 MG in SODIUM CHLORIDE 0.9% 230 ML IV SCH (20:01)
[2021-06-23] MEDS: SODIUM CHLORIDE 0.9% 10ML FLUSH IV SCH (21:16)
[2021-06-23] MEDS: MELATONIN 3 MG TAB PO SCH (21:19)
[2021-06-24 06:57] LABS: Hematocrit (blood only) 42.2 % (42-52); Hemoglobin 14.2 g/dL (14.0-18.0); Mean Corpuscular Hemoglobin 30.6 pg (25-34); Mean Corpuscular Hgb Conc 33.6 g/dL (32-36); Mean Corpuscular Volume 90.9 fL (80-100); Mean Platelet Volume 9.1 fL (7.4-10.4); Platelet Count 236 K/uL (130-400); RDW Standard Deviation 43.4 fL (36.4-46.3); Red Blood Count 4.64 M/uL (4.7-6.1); White Blood Count 6.36 K/uL (4.8-10.8)
[2021-06-24 07:09] LABS: D Dimer 470 ug/L FEU (0-500)
[2021-06-24 07:32] LABS: Calcium 9.1 mg/dl (8.5-10.1); Creatinine Clr Calc Pharmacy 123.3 ml/min; Est GFR (African American) 119.9 ml/min; Est GFR (Non-African American) 103.4 ml/min; Potassium 3.8 mmol/L (3.5-5.1)
[2021-06-24 07:35] LABS: C Reactive Protein 1.01 mg/dl (0-0.29)
[2021-06-24] MEDS: LOSARTAN POTASSIUM 50 MG TAB PO SCH (08:10)
[2021-06-24] MEDS: guaiFENesin 600 MG TABCR PO SCH (08:10)
[2021-06-24] MEDS: ASPIRIN 81 MG ECTAB PO SCH (08:10)
[2021-06-24] MEDS: ROSUVASTATIN CALCIUM 5 MG TAB PO SCH (08:10)
[2021-06-24] MEDS: FERROUS SULFATE 325 MG TAB PO SCH (08:10)
[2021-06-24] MEDS: MAGNESIUM OXIDE 400 MG TAB PO SCH (08:10)
[2021-06-24] MEDS: FLUTICASONE/VILANTEROL 100/25MCG 14 PUFFS/INHALER INH SCH (08:11)
[2021-06-24] MEDS: FUROSEMIDE INJ 20 MG/2 ML VIAL IV SCH (08:11)
[2021-06-24] MEDS: ENOXAPARIN INJ 60 MG/0.6 ML SYR SQ SCH (08:11)
[2021-06-24] MEDS: INSULIN GLARGINE SOLOSTAR 100 UNITS/ML 3 ML PEN SC SCH (08:16)
[2021-06-24] MEDS: INSULIN HUMAN NPH SC SCH (08:18)
[2021-06-24] MEDS: POLYETHYLENE (MIRALAX) 17 GM PACK PO SCH (08:19)
[2021-06-24] MEDS: dexAMETHasone 6 MG in SYRINGE 0 ML IV SCH (08:26)
[2021-06-24] MEDS ORDERED: bisacodyL 5 MG TABEC PO ONE (09:29)
[2021-06-24] MEDS ORDERED: metFORMIN HCL ER 500 MG TABCR PO SCH (09:35)
[2021-06-24] MEDS: INSULIN ASPART 100 UNITS/ML 3 ML PEN SC SCH ×2 (09:43→12:32)
--- NOTE | 2021-06-24 14:47 | Discharge Summary ---
Date of Service date of admission - June 19, 2021 date of discharge - June 24, 2021 Admission HPI Per Admitting Provider 65 yo M Hx restrictive lung disease, DM2, CAD, HLD, DAVID presented to the ER for 2 days of worsening hypoxia in the setting of COVID-19 diagnosis on 06/16/2021. He was seen by his PCP on 06/18 and at that time was advised to pursue monoclonal antibodies; he deferred this treatment. He is not COVID-19 vaccinated. He has been checking his pulse ox at home and reports that he kept seeing his oxygen saturation dipped and throughout the day has been feeling more and more short of breath and so decided to come to the ER. Patient denies complaints of chest pain or palpitations, nausea, vomiting, diarrhea, fevers or chills. He reports that he was in contact with a family member who was not tested for COVID-19 but did have URI symptoms last week. In the ER patient was noted to be saturating at 83% on room air, improved to 93% on 4 L nasal cannula. Vitals otherwise stable. Chest x-ray with bilateral patchy infiltrates consistent with COVID-19 pneumonia. Lab work notable for leukopenia and mildly elevated AST, negative pro-Gagan, detectable (though not elevated) troponin at 0.018. Chest CTA performed without evidence of pulmonary embolism, but with multifocal airspace opacities compatible with viral pneumonia. In the ER patient received IV fluids and dexamethasone 6 mg IV x1. Hospitalist service was consulted for admission for acute hypoxic respiratory failure and COVID-19 pneumonia. Principal Diagnosis Acute hypoxic respiratory failure 2nd to COVID-19 pneumonia Discharge Exam gen - NAD, a/o x 3 mouth - MMM neck - no JVD heart - RRR, s1 s2, no murmur lungs - good airation, no wheeze, minimal rales bases b/l abd - soft NT ND BS+ ext - no edema, pulses 2+ b/l skin - no rash Discharge Data Allergies Allergy/AdvReac Type Severity Reaction Status Date / Time No Known Allergies Allergy Verified 06/19/21 19:22 Consultations PT, OT Procedures Performed Echocardiogram - * EF 55-60% * mild aortic root dilatation; diameter 4cm * mild aortic regurgitation * no aortic stenosis * mild tricuspid regurgitation * normal PA pressure 2-step ambulatory oxygen test - no need for home O2 Ordered Studies Chest CTA 06/19/21 17:11 CT angio chest PE protocol CLINICAL HISTORY: ro PE Covid pneumonia. TECHNIQUE: Multidetector row helical CT of the chest was performed. Coronal and sagittal reformations were obtained. Coronal and sagittal MIPS were obtained from the axial data set and were submitted for review. Automated dose lowering techniques and/or adjustment according to patient size were utilized for this exam. Comparison: Comparison is made to CT chest 06/16/2019 FINDINGS: Lungs and pleura: Multifocal consolidative and groundglass opacities are seen. Heart and pericardium: Heart size is normal. No pericardial effusion. Vessels: Moderate atherosclerotic changes in the aorta and coronary arteries. No evidence of pulmonary embolus. Mediastinum and cameron: Unremarkable. Chest wall and lower neck: Subcentimeter thyroid nodules are noted which do not require follow-up by ACR criteria. Abdomen: Unremarkable. Bones: Unremarkable. IMPRESSION: 1. No evidence of pulmonary embolism. 2. Multifocal airspace opacities compatible with viral pneumonia. ACT 112: Negative or not required by law. Electronically signed by: Lul Nam M.D. 06/19/2021 7:10 PM Chest X-Ray 06/19/21 17:12 XR chest 1V portable CLINICAL HISTORY: SEPSIS TECHNIQUE: Single frontal radiograph of the chest was obtained. Comparison: Comparison is made to chest one view 09/11/[address] chest on 09/01/2019 FINDINGS: No lines and tubes are seen. The cardiomediastinal silhouette is normal. Multifocal airspace opacities are seen. No evidence of pleural effusion or pneumothorax. IMPRESSION: Multifocal airspace opacities may represent atelectasis, pneumonia, and/or aspiration. ACT 112: Negative or not required by law. Electronically signed by: Lul Nam M.D. 06/19/2021 6:26 PM Hospital Course (1) Acute respiratory failure with hypoxia: 2nd to COVID-19 pneumonia. no evidence of complicating bacterial pneumonia. no evidence of PE. no evidence of any complicating acute CHF although used lasix while here to keep I/O balance negative. Peak NC O2 requirement - 11 Liters. s/p 5 days of IV dexamethasone 6mg daily while here. s/p 5-day course of IV Remdesivir. O2 was successfully weaned off, and on day of discharge he passed his 2-step ambulatory oxygen test - thus, he does not need O2 at home. He will complete 4 more doses of dexamethasone at home. (2) 2019 novel coronavirus-infected pneumonia (NCIP): See #1 above. s/p Dexamethasone 6mg IV daily x 6 doses while here. s/p Remdesivir x 5 days. He never met criteria for Baricitinib treatment. He had no evidence of any bacterial process. DVT prophylaxis - Xarelto 10mg po daily x 30 days post-discharge. (3) Type 2 diabetes mellitus: Uncontrolled throughout the stay due to his severe COVID illness and steroid usage. Required combination of lantus, NPH, and novolog while here. HbA1C 6.8% earlier in the fall 2020. At discharge he will - * resume metformin 1000mg bid * continue Farxiga - but increase to 10mg/day F/u with PCP post-discharge. (4) Sleep apnea: (5) Hypertension: cont losartan control adequate during the visit (6) NSVT (nonsustained ventricular tachycardia): 1 episode during the admission no symptoms from such checked echo - normal LV function; normal wall motion no ischemic symptoms at home leading up to this admission nor during the admission he had mild hypokalemia at the time of the brief NSVT episode which may have precipitated the event (7) Hypokalemia: replaced resolved magnesium level wnl (8) DVT prophylaxis: lovenox 50mg BID while here. then Xarelto 10mg po daily x 30 days post-discharge. (9) Aortic root dilatation: 4cm seen incidentally on echo mild will need surveillance of this and good BP control patient counseled on this finding (10) Constipation: outpatient medication regimen discussed at discharge PT, OT americoals completed and cleared for home Total Time Total Time Spent Total Time Spent (In Minutes): 45 Discharge Plan Discharge Items Patient Disposition: Home - Self-Care Reason For Visit: COVID-19 PNEUMONIA Discharge Diagnosis: 1. COVID-19 pneumonia - improving 2. Constipation 3. Uncontrolled diabetes - due to #1 and steroids 4. Aortic root enlargement (aneurysm) - 4cm in size - follow-up and surveillance needed Activity: As commented below Activity Comment: gradually increase your activities over the next 1-2 weeks Sexual Activity: Wait until after follow-up appointment Exercise/Sports: Wait until after follow-up appointment Driving/Machine Use: Resume 3 days after discharge Non-emergency contact: Primary Care Provider Call non-emergency contact if: you have any medication questions, your symptoms worsen and you have a fever Follow-up/Referrals: Andrea Redmond MD [Primary Care Provider] - 07/07/21 11:00 am Diet: Carb Consistent or DM2 Addtl Attending Provider Instructions: Mr Fink, You were hospitalized for COVID-19 pneumonia. You were treated with a combination of steroids, Remdesivir anti-viral medication, oxygen, and other supportive care. Your oxygen was weaned off by the time you were discharged. An ambulatory oxygen test on 06/24/21 showed that you do NOT need oxygen at home during your recovery. An echocardiogram of your heart showed normal heart function. However, incidentally, it showed you have a mild enlargement (aneurysm) of the aorta where it comes off the heart. There is nothing to do for this at this time other than continue your blood pressure medication and have follow-up surveillance of it in the next year. This is to ensure it is not enlarging. Dr Redmond can follow this for you or refer you to a specialist. The aorta was 4cm in size. During the stay your blood sugars were very high due to the illness itself AND the steroids being used for your pneumonia. You required a fair amount of insulin to control your sugars. Recommendations - 1. COVID-19 pneumonia - * take dexamethasone steroid - 6mg once daily with food x 4 days. Start this tomorrow on 06/25/2021. * ok to take [id number] mucinex up to 1200mg twice daily for cough * continue your breathing exercises with your flutter valve and your incentive spirometry device; continue them for at least another week 2. For prevention of DVT blood clots and pulmonary emboli (blood clots in lungs) - * take Xarelto 10mg once daily x 30 days; start this tomorrow, 06/25/21 * see instructions below regarding Xarelto 3. For your diabetes - * continue your metformin 1000mg twice daily; take your next dose tonight with food * starting tomorrow, 06/25/2021 - INCREASE your Farxiga to 10mg once daily (you had been taking 5mg); do not take any Farxiga today * please watch your diet carefully over the next 5-6 days as your sugars will run high because of the dexamethasone steroid * if your sugars are consistently higher than [address] Redmond's office know 4. You are unlikely to be contagious to others at this time. You do not need to isolate at home. However, with that said, plan to spend the next few days at home resting and recovering. 5. To help prevent stomach irritation while on your usual aspirin, the steroids, and Xarelto - * take pantoprazole 40mg once daily for 30 days; you can start this tomorrow morning 6. Continue to wear a mask any time you leave your home. 7. Check your oxygen levels on your finger with the pulse oximeter 3-4 times each day. If you are consistently 90% or higher these are acceptable readings. If you are less than 90% consistently please seek medical attention. 8. Obtain a flu shot in about 3-4 weeks if you haven't had one. 9. It is important to listen to your body during the recovery period. If you are tired it is ok to rest/nap. You are going to feel more tired than usual and you won't be back to 100% for a week or two, if not longer. Try not to "over do it - gradually increase your activities. 10. constipation - * consider a dulcolax suppository when you get home * continue on miralax once daily * both of these medications are [id number] Follow-up - see separate section Return to [facility] if - * you have fevers over 100 degrees * you have worsening shortness of breath * your pulse oximetry readings are less than 90% consistently * you have bleeding from any location as listed below * you have chest pains * any other concerns It was our pleasure caring for you at [facility]! Continue to feel better, Dr Sakshi Gomeztl [employer]visor [employer] Provider Instructions: Blood Thinner (Anticoagulation) Medication Instructions: For reasons not entirely understood having COVID-19 infection, in some individuals, increases the chances of developing DVT blood clots of the legs and blood clots of the lungs. To prevent blood clots during your recovery we are prescribing you a blood thinner named XARELTO. * You should take your medication exactly as directed. * Never skip a dose. * Never take a double dose. If you miss a dose, take it as soon as you rememb er. Call your Primary Care doctor if you experience any of the following: * Swelling or Pain in your leg * Sudden, continuous pain deep in a muscle * Pain that worsens when you are active or when you stand still for a long time * Chest Pain * Sudden Shortness of Breath * Rapid or pounding heart beat * Fainting * Dizziness * Cough with blood or bloody sputum * Sweating more than normal * Bruises * Heavy or uncontrolled bleeding * Blood in your urine, stool or vomit * Black or tarry stools * Heavy nose bleeding Caring for Your Self at Home: * Avoid sitting, standing or lying down for long periods without moving your legs and feet * When traveling by car, stop to get out and move around at least once every 3 hours * On long airplane, train or bus rides, get up and move around when possible * If you can't get up, wiggle your toes and tighten your calves to keep your blood moving Pending Studies at Discharge: No Stand-Alone Forms: My [facility] [employer], Smoking Cessation Medications and DC Order Prescriptions: New polyethylene glycol 3350 [Miralax] 17 gram Powder In Packet 17 g PO DAILY Qty: 1 RF: 0 Xarelto 10 mg tablet 10 mg PO DAILY 30 Days Qty: 30 RF: 0 pantoprazole 40 mg tablet,delayed release (DR/EC) 40 mg PO QAM 30 Days Qty: 30 RF: 0 Continued losartan 100 mg tablet 100 mg PO DAILY Qty: 90 RF: 3 metformin 500 mg tablet extended release 24 hr 1,000 mg PO BID Qty: 360 RF: 3 rosuvastatin 5 mg tablet 5 mg PO DAILY Qty: 90 RF: 3 (DME) lancets [FreeStyle Lancets] 28 gauge misc See Dose Instructions .ROUTE .MEDSUPPLY Qty: 25 RF: 0 (DME) FreeStyle Lite Strips strip See Dose Instructions .ROUTE .MEDSUPPLY Qty: 10 RF: 0 magnesium oxide 400 mg magnesium tablet 400 mg PO PM RF: 0 ferrous sulfate 325 mg (65 mg iron) tablet,delayed release (DR/EC) 65 mg PO DAILY RF: 0 cyanocobalamin (vitamin B-12) [Vitamin B-12] 1 ea PO DAILY RF: 0 aspirin 81 mg tablet,delayed release (DR/EC) 81 mg PO DAILY RF: 0 benzonatate 200 mg capsule 200 mg PO TID PRN (Reason: cough) Qty: 30 RF: 0 Changed Farxiga 5 mg tablet 10 mg PO DAILY Qty: 90 RF: 3 Discharge Orders: Discharge Order (Routine); Ordered 06/24/21 Ordered By: Maxwell Crisostomo/Other Patient Handouts: Pantoprazole Delayed Release Oral Tablet 40 mg, Dexamethasone Oral Tablet 6 mg, Xarelto Oral Tablet 10 mg, 2019-nCoV, COVID-19 Home Care Admission Data Admit Date/Time: 06/19/21 19:58 Attending Provider: Maxwell Cantor Admit Provider: Roseanna Dasilva Primary Care Provider: Andrea Redmond Other Providers: Govind Rodas Other Interventions: Discharge Summary Assessment (RN) Last Done: 06/24/21 14:51 Coding Level of Care Code D/C DAY MANAGEMENT >30 MINS Diagnoses Acute respiratory failure with hypoxia J96.01 2019 novel coronavirus-infected pneumonia (NCIP) U07.1; J12.82 Type 2 diabetes mellitus E11.9 Sleep apnea G47.30 Hypertension I10 Hypertension type: primary hypertension NSVT (nonsustained ventricular tachycardia) I47.2 Hypokalemia E87.6 DVT prophylaxis Z29.9 Aortic root dilatation I77.810 Constipation K59.00
== END 2021-06-24 15:52 | disposition home or self-care (01) | DRG 177 ==
LOC: ED 16:56 → EDINP 19:58 → SUATTDRO 19:58 → 2W 21:11

== ENCOUNTER 2023-10-08 04:57 | Observation (INO) ==
--- NOTE | 2023-09-10 11:38 | PAT Medication Instructions ---
Medication Instructions Date of Service September 10, 2023 Home Medications Medication Instructions Recorded blood-glucose meter (FreeStyle #1 ea 07/07/21 [place] kit) blood sugar diagnostic (FreeStyle #200 ea 07/17/22 Lite Strips) metformin 500 mg tablet,extended 1,000 mg (2 x 500 mg) PO BID #360 11/26/22 release 24 hr tabs dapagliflozin propanediol 10 mg 10 mg PO QAM #30 tabs 04/15/23 tablet (Farxiga) losartan 100 mg tablet 100 mg PO QPM #90 tabs 08/03/23 gabapentin 300 mg capsule 300 mg PO .qhs #90 caps 08/27/23 aspirin 81 mg tablet,delayed release 81 mg PO QAM magnesium oxide 400 mg PO PM cyanocobalamin (vitamin B-12) 1,000 mcg tablet 1,000 mcg PO QAM metformin 500 mg tablet,extended release 24 hr 1,000 mg (2 x 500 mg) PO BID dapagliflozin propanediol 10 mg tablet (Farxiga) 10 mg PO QAM losartan 100 mg tablet 100 mg PO QPM gabapentin 300 mg capsule 300 mg PO .qhs duloxetine 30 mg capsule,delayed release (Cymbalta) 30 mg PO QAM duloxetine 60 mg capsule,delayed release (Cymbalta) 60 mg PO QAM meloxicam 15 mg tablet 15 mg PO QAM rosuvastatin 5 mg tablet 5 mg PO QAM ASK your surgeon for instructions meloxicam 15 mg tablet 15 mg PO QAM STOP 3 days before surgery dapagliflozin propanediol 10 mg tablet (Farxiga) 10 mg PO QAM DO NOT take the morning of surgery cyanocobalamin (vitamin B-12) 1,000 mcg tablet 1,000 mcg PO QAM metformin 500 mg tablet,extended release 24 hr 1,000 mg (2 x 500 mg) PO BID Take morning of surgery With a small sip of water, OTHERWISE NOTHING TO EAT OR DRINK AFTER MIDNIGHT: aspirin 81 mg tablet,delayed release 81 mg PO QAM (unless surgeon directed otherwise) duloxetine 30 mg capsule,delayed release (Cymbalta) 30 mg PO QAM duloxetine 60 mg capsule,delayed release (Cymbalta) 60 mg PO QAM rosuvastatin 5 mg tablet 5 mg PO QAM Take evening before surgery magnesium oxide 400 mg PO PM metformin 500 mg tablet,extended release 24 hr 1,000 mg (2 x 500 mg) PO BID losartan 100 mg tablet 100 mg PO QPM gabapentin 300 mg capsule 300 mg PO .qhs Other Notes If you have any questions please call us at [phone] or [phone] or [phone] or [phone]
--- NOTE | 2023-09-15 09:32 | Anesthesiology Consultation ---
Date of Service September 15, 2023 Assessment & Plan (1) Encounter for pre-operative examination: - will request most recent Dr. Macdonald PCP office note. - check BSG am DOS. - Outpatient joint assessment: Patient is currently scheduled for inpatient pathway. If re-evaluated and patient/surgeon requests outpatient pathway, patient is not recommended candidate for outpatient joint program from anesthesia standpoint. Chart Review Chart Review: Pending: Refer to Additional Notes / Consult section and Patient seen in Pre Admission Testing Teaching & Discussion Pre-Anesthesia Teaching/Discussion Notes: Instructed NPO after midnight before surgery, except medications with 15 cc of water. Medication instructions provided according to the PAT guidelines. History Surgery Operation Date: 10/08/23 13:10 Proposed Procedures p Right Total Knee Arthroplasty - Mariusz Recio, Height/Weight Height: 5 ft 4 in Weight: 99.9 kg Allergies Allergy/AdvReac Type Severity Reaction Status Date / Time No Known Allergies Allergy Verified 09/10/23 13:29 Medications Home Medications Medication Instructions Recorded Confirmed Last Taken aspirin 81 mg tablet,delayed 81 mg PO QAM 02/03/19 09/10/23 11/12/21 release lancets 28 gauge (FreeStyle #25 ea 02/03/19 09/10/23 Unknown Lancets) magnesium oxide 400 mg PO PM 08/22/19 09/10/23 11/12/21 blood-glucose meter (FreeStyle #1 ea 07/07/21 09/10/23 Unknown Mitchell kit) cyanocobalamin (vitamin B-12) 1,000 mcg PO QAM 11/05/21 09/10/23 11/12/21 1,000 mcg tablet blood sugar diagnostic (FreeStyle #200 ea 07/17/22 09/10/23 Unknown Lite Strips) metformin 500 mg tablet,extended 1,000 mg (2 x 500 mg) PO BID #360 11/26/22 09/10/23 Unknown release 24 hr tabs dapagliflozin propanediol 10 mg 10 mg PO QAM #30 tabs 04/15/23 09/10/23 Unknown tablet (Farxiga) losartan 100 mg tablet 100 mg PO QPM #90 tabs 08/03/23 09/10/23 Unknown gabapentin 300 mg capsule 300 mg PO .qhs #90 caps 08/27/23 09/10/23 Unknown duloxetine 60 mg capsule,delayed 60 mg PO QAM 09/02/23 09/10/23 Unknown release (Cymbalta) meloxicam 15 mg tablet 15 mg PO QAM 09/02/23 09/10/23 Unknown rosuvastatin 5 mg tablet 5 mg PO QAM 09/02/23 09/10/23 Unknown Past Medical History Medical History (Updated 09/15/23 @ 10:09 by Dora Burks PA-C) Aortic root dilatation on echo 06/2021 Asthma rare use of PRN inh-last used yrs ago Brain aneurysm being monitored, [facility] neurology-next imaging in 1 yr per pt Coronary artery calcification Fatty liver History of colon polyps History of COVID-19 06/2021 - hospitalized x5days d/t O2 sats of 72% - resolved HLD (hyperlipidemia) Hypertension controlled, stable per pt NSVT (nonsustained ventricular tachycardia) hx Sleep apnea unable to tolerate CPAP Splenic artery aneurysm pt unaware Type 2 diabetes mellitus NIDDM Patient denies h/o stroke, seizures, heart attack, heart failure, blood clots/DVTs or blood transfusions. Exercise / Class Metabolic Activity II 4-5 Yardwork/Stairs/Walk up hill (denies chest discomfort or shortness of breath with 1 FOS) Past Family History Family History Father Colon cancer Diabetes Stroke Other Family history non-contributory Denies family history of Ovarian cancer Prostate cancer Myocardial infarction Breast cancer Lung cancer Past Surgical History Surgical History History of colonoscopy History of repair of patent ductus arteriosus S/P carpal tunnel release S/P cubital tunnel release S/P decompression of ulnar nerve Past Anesthesia History No Hx of Anesthesia Complications and No Family Hx of Anesthesia Complications History of PONV No Hx of PONV and No Hx of Motion Sickness Social History Smoking Status: Never smoker Do You Dip or Chew Tobacco: No Hx Alcohol Use: Yes Alcohol type: beer alcohol intake frequency: holidays/special occasions only Hx Substance Use: No substance use type: does not use Review of Systems Patient denies chest pain, shortness of breath, dyspnea on exertion, reflux, fever, chills, cough, wheezing, or palpitations. Physical Exam Vital Signs Vitals BP 153/79 P 73 TEMP 97.9 SP02 95% on RA RESP 18 Physical Patient resting comfortably in chair in no acute distress, alert and oriented, responding appropriately throughout visit Full cervical extension range of motion without pain TMD < 3 finger breadths Mallampati Score 3 Dentition: intact, denies chipped or loose teeth, caps/crowns, implants or bridges Lungs: normal respiratory effort. Good air movement, clear throughout to auscultation, no adventitious breath sounds Cardiac: regular rate and rhythm, no murmurs noted Carotid arteries: negative bruit bilat Lab Results Anesthesia Preop Results Results Anesthesia Widget: WBC 6.52 K/ul (4.8-10.8) 09/15/23 Hgb 14.7 g/dl (14.0-18.0) 09/15/23 Hct 42.9 % (42.0-52.0) 09/15/23 Plt 171 K/uL (130-400) 09/15/23 Na 139 mmol/L (136-145) 09/15/23 K 4.1 mmol/L (3.5-5.1) 09/15/23 Cl 106 mmol/L (98-107) 09/15/23 CO2 25 mmol/L (21-32) 09/15/23 BUN 17 mg/dl (6-23) 09/15/23 Creat 0.53 mg/dl (0.6-1.4) L 09/15/23 Glucose Level 143 mg/dl (70-99(Fasting)) H 09/15/23 PT 10.3 Seconds (9.0-12.0) 09/15/23 PTT 29 Seconds (21-31) 09/15/23 INR 0.9 (0.9-1.1) 09/15/23 TSH 0.502 uIu/ml (0.300-4.500) 09/10/23 HA1c 7.2 % (4.5-5.6) H 09/15/23 Urine Color Yellow 09/10/23 Urine Appearance Clear (Clear) 09/10/23 Urine pH 5.5 (4.5-7.5) 09/10/23 Urine Specific [place] 1.039 (1.000-1.030) H 09/10/23 Urine Protein Negative (Negative) 09/10/23 Urine Glucose (UA) 3+ (Negative) H 09/10/23 Urine Ketones Trace (Negative) H 09/10/23 Urine Blood Negative (Negative) 09/10/23 Urine Nitrite Negative (Negative) 09/10/23 Urine Bilirubin Negative (Negative) 09/10/23 Urine Urobilinogen Negative (Negative) 09/10/23 Urine Leukocyte Esterase Negative (Negative) 09/10/23 Blood Type A Positive 09/15/23 Antibody Screen NEGATIVE 09/15/23 Testing Electrocardiogram Date: 09/15/23 NSR, rate [address] &T wave abnormality, consider lateral ischemia No significant change vs 11/11/21 EKG Chest X-Ray Date: 09/15/23 No acute chest disease. Echocardiogram Date: 06/23/21 EF 55-60% Normal LV wall motion Mild aortic root dilatation Aortic root diameter 4 cm Mild aortic regurgitation, no hemodynamically significant valvular aortic stenosis Mild tricuspid regurgitation
[2023-10-08] MEDS: LR 60ML/HR IV SCH (06:00)
[2023-10-08] MEDS: LR 500ML BOLUS, THEN 15ML/HR IV SCH (06:00)
[2023-10-08] MEDS: dexAMETHasone**PF** 10 MG/ML VIAL IV SCH (06:00)
[2023-10-08] MEDS: ACETAMINOPHEN 500 MG TAB PO SCH ×2 (06:01→13:47)
[2023-10-08] MEDS: FAMOTIDINE 20 MG TAB PO SCH (06:01)
[2023-10-08] MEDS: GABAPENTIN 300 MG CAP PO SCH ×2 (06:01→21:09)
--- NOTE | 2023-10-08 06:21 | History & Physical Bridge Note ---
Date of Service October 08, 2023 History & Physical Bridge Note I have examined the patient, reviewed the History & Physical and in the interval since the performance of the History & Physical I have noted the following changes of clinical significance: no changes noted
[2023-10-08] MEDS ORDERED: ROPIVACAINE 0.5% 5 MG/ML 30 ML VIAL ONE (06:25)
[2023-10-08] MEDS ORDERED: BUPIVACAINE 0.5 % 5 MG/1 ML PF 10ML VIAL ONE (06:25)
[2023-10-08] MEDS ORDERED: ONDANSETRON INJ 2 MG/ML 2 ML VIAL ONE (06:38)
[2023-10-08] MEDS ORDERED: fentaNYL citrate PF 100 MCG/2 ML VIAL IV PRN (06:38)
[2023-10-08] MEDS ORDERED: ePHEDrine sulfate 50 MG/ML AMP IV PRN (06:38)
[2023-10-08] MEDS ORDERED: LIDOCAINE 2% 2 ML VIAL/AMP(20MG/ML) INFIL ONE (06:38)
[2023-10-08] MEDS ORDERED: fentaNYL citrate PF 100 MCG/2 ML VIAL ONE (06:38)
[2023-10-08] MEDS ORDERED: MIDAZOLAM HCL 1 MG/ML 2ML VIAL ONE (06:38)
[2023-10-08] MEDS ORDERED: ATROPINE SULFATE 0.1 MG/ML 10ML SYR IV PRN (06:38)
[2023-10-08] MEDS ORDERED: DEXAMETHASONE SOD INJ 4 MG/ML VIAL ONE (06:38)
[2023-10-08] MEDS ORDERED: PROPOFOL IV EMULSION 10 MG/ML 20 ML VIAL IV ONE ×3 (06:38→07:57)
[2023-10-08] MEDS ORDERED: ONDANSETRON INJ 2 MG/ML 2 ML VIAL IV PRN ×2 (06:38→09:45)
[2023-10-08] MEDS: TRANEXAMIC ACID 1,000 MG **IV Pre-op IV SCH (06:39)
[2023-10-08] MEDS: ceFAZolin 2000MG 2,000 MG/15 ML SYR IV SCH ×2 (06:52→13:47)
[2023-10-08] MEDS: ROPIV 0.5% 246mg, Ketorolac 30mg, EPINEPHrine 0.5mg in NSS INFIL SCH (07:33)
[2023-10-08] MEDS: TRANEXAMIC ACID 1,000 MG **IV Intra-op IV SCH (08:00)
[2023-10-08] MEDS ORDERED: ePHEDrine sulfate 50 MG/5 ML SYR ONE (08:03)
[2023-10-08] MEDS: ORTHO JOINT ANESTHETIC ONE (08:05)
--- NOTE | 2023-10-08 08:05 | Operative Report ---
PG Post Operative Report Pre & Post Diagnosis Operation Date: 10/08/23 07:00 Pre-Op Diagnosis: Right Knee Osteoarthritis Post-Op Diagnosis: Right Knee Osteoarthritis I identified the patient and participated in the time-out.: Yes Procedure Operation Date: 10/08/23 07:00 Actual Procedures p Right Total Knee Arthroplasty(Right) - Mariusz Recio DO Surgeon Mariusz Recio DO Stemhole Borer Mariusz Chase PA-C Estimated Blood Loss 30 Findings Consistent with Post-Op Diagnosis Specimens Right femoral and tibial bone Description of Procedure Implants used: I used a Rad Persona total knee arthroplasty system with a size 9 standard PS femur, F tibia, 34 oval patella, and a size 14 CPS polyethylene bearing. All components were cemented in place with Biomet cement. Michael arrived [facility] for the above procedure. He was seen in the preoperative holding area and the operative extremity was identified and signed. He was given a preoperative antibiotic, TXA, a spinal anesthetic and an adductor nerve block. He was taken back to the operating room and laid on the table in supine position. He was given basic sedation. The operative knee was then prepped and draped in sterile fashion. A timeout was done, and the patient and the operative extremity was properly identified. A midline incision was made directly over the patella. Dissection was taken down to the extensor mechanism. A medial parapatellar arthrotomy was used. The medial retinaculum was released and the fat pad was mostly excised. The knee was flexed and the ACL, PCL, and meniscus were removed. A drill was sent down the center of the femoral canal followed by an intramedullary jess. Off that jess a distal femoral cutting block was placed. 9 mm was resected off the distal femur at 5 of valgus. A posterior referencing AP sizing guide was then placed on the distal femur. The femur measured to be a size 9. 2 drill holes were placed in 3 of external rotation. A 4-in-1 cutting block was then impacted into place. Anterior, posterior, and chamfer cuts were then made. The proximal tibia was then exposed. An external tibial alignment guide was placed. A tibial cut guide was then anchored in place and the proximal tibia was then resected. The posterior aspect of the knee was then opened up and any additional meniscus fragments and osteophytes were removed. The tibia measured to be a size F. The tibial plate was then placed in the appropriate rotation and the tibia was drilled and punched. Trial components were then placed. I used a size 14 CPS polyethylene insert. The knee was brought through a full range of motion and felt to be stable. The peg holes for the femoral component were then drilled. The patella was then everted and 9 mm was resected off the posterior aspect of the patella. The patella measured to be a size 34 oval. 3 peg holes were then drilled. A trial patella was placed. The knee was once again brought through a full range of motion and felt to be stable. Trial components were then removed. The surrounding soft tissues were injected with 100 cc of an orthopedic pain control cocktail. All components were then cemented into place with Biomet cement. The final polyethylene insert was then snapped into place. Once cement was dry the tourniquet was deflated. Hemostasis was obtained. A dilute betadyne lavage was then done for 3 minutes. The joint was then irrigated with normal saline solution. The medial parapatellar arthrotomy was then closed with #1 Vicryl suture. The skin was closed with 2-0 Vicryl, 3-0V lock suture, and gayle. A soft compressive dressing was placed. He was then transferred to a hospital bed and taken to the postanesthesia care unit in stable condition. He tolerated the procedure well. Mariusz Chase PA-C, was present for the entire procedure. He was critical for patient positioning, prepping, draping, retraction exposure, wound closure and application of sterile dressing. I attest to the content of the Intraoperative Record and any orders documented therein. Any exceptions are noted below.
--- NOTE | 2023-10-08 08:42 | XRay Report ---
RIGHT KNEE 2 VIEWS History: Right total knee arthroplasty. Degenerative arthritis. Postop. FINDINGS: The patient is status post a right total knee arthroplasty. The hardware is intact. No frac ture or dislocation. Skin gayle are in place. IMPRESSION: Right total knee arthroplasty. No evidence for hardware complication. ACT 112: Negative or not required by law. Electronically signed by: Modesto White M.D. 10/08/2023 8:40 AM
[2023-10-08] MEDS ORDERED: HYDROmorphone INJ 0.5 MG/0.5 ML SYR IV PRN (09:45)
[2023-10-08] MEDS ORDERED: MAGNESIUM HYDROXIDE SUSP 30 ML UDC PO PRN (09:45)
[2023-10-08] MEDS ORDERED: METOCLOPRAMIDE HCL INJ 5 MG/ML 2 ML VIAL IV PRN (09:45)
[2023-10-08] MEDS ORDERED: PHARMACY GLYCEMIC MGMT CONSULT PRN (09:45)
[2023-10-08] MEDS ORDERED: bisacodyL 10 MG SUPP PR PRN (09:45)
[2023-10-08] MEDS ORDERED: NALOXONE HCL 0.4 MG/1 ML VIAL/CARP IV PRN (09:45)
[2023-10-08] MEDS: SODIUM CHLORIDE 0.9% 1,000 ML IV SCH (10:22)
[2023-10-08] MEDS: MULTIVITAMIN TAB PO SCH (10:23)
[2023-10-08] MEDS: DOCUSATE SODIUM 100 MG CAP PO SCH (10:23)
[2023-10-08] MEDS: ROSUVASTATIN CALCIUM 5 MG TAB PO SCH (10:23)
[2023-10-08] MEDS: ASPIRIN 81 MG ECTAB PO SCH (10:23)
[2023-10-08] MEDS: KETOROLAC TROMETHAMINE 15 MG/ML VIAL IV SCH (10:24)
--- NOTE | 2023-10-08 10:28 | Anesthesiology Progress Note ---
Date of Service October 08, 2023 Anesthesia Post Procedure Vital Signs Vital Signs: Temp Pulse Pulse Resp BP Pulse Ox O2 Del Method 10/08/23 10:15 97.7 F 93 H 15 142/79 H 95 Room Air 10/08/23 09:44 98.2 F 92 H 17 137/81 95 Room Air 10/08/23 09:25 90 12 123/82 95 Nasal Cannula 10/08/23 09:15 88 14 134/81 97 Nasal Cannula 10/08/23 09:05 97.5 F L 88 18 144/80 H 94 Nasal Cannula 10/08/23 08:55 87 14 136/79 91 Room Air 10/08/23 08:45 85 18 133/81 98 Oxymask 10/08/23 08:35 84 16 142/88 H 98 Oxymask 10/08/23 08:25 98.8 F 95 H 18 119/73 95 Oxymask 10/08/23 05:46 97.7 F 83 20 171/85 H 95 Room Air O2 Flow Rate 10/08/23 10:15 10/08/23 09:44 10/08/23 09:25 2 10/08/23 09:15 2 10/08/23 09:05 2 10/08/23 08:55 10/08/23 08:45 4 10/08/23 08:35 4 10/08/23 08:25 6 10/08/23 05:46 Transfer of Care Handoff Completed per policy Notes Mental Status: alert / awake / arousable and participated in evaluation Patient Amnestic to Procedure: Yes Nausea / Vomiting: adequately controlled Pain: adequately controlled Airway Patency, RR, SpO2: stable & adequate BP & HR: stable & adequate Hydration State: stable & adequate Neuraxial Anesthesia: was administered and sensory block is resolving Anesthetic Complications: no major complications apparent and Pt Satisfied with anesthetic care
[2023-10-08] MEDS ORDERED: GLUCOSE 40% GEL 15 GM TUBE PO PRN (11:15)
[2023-10-08] MEDS ORDERED: DEXTROSE 50% 50 ML SYRINGE IV PRN (11:15)
[2023-10-08] MEDS ORDERED: CARBOHYDRATES FOR HYPOGLYCEMIA PO PRN (11:15)
[2023-10-08] MEDS ORDERED: GLUCAGON FOR INJ 1 MG VIAL IM PRN (11:15)
[2023-10-08] MEDS ORDERED: GLUCOSE 10 TAB/TUBE PO PRN (11:15)
--- NOTE | 2023-10-08 11:50 | Pharmacy Report ---
Pharmacy Glycemic Short Note 2 - Date of Service October 08, 2023 - Glycemic Short BSG Results (Last 24 hours): 10/08/23 10/08/23 10/08/23 05:32 08:28 11:31 POC Glucose 177 H 178 H 271 H OUTPATIENT ANTIDIABETIC REGIMEN: * Dapagliflozin 10mg PO qAM * Metformin 1gm PO BID * HbA1c: 7.2% (09/15/23) ASSESSMENT: * Mr Fink is a 68yo diabetic M, POD 0 s/p R TKA w/ Dr Recio this morning. * Pt received 10mg IV dexamethasone pre-operatively this morning; expect to see steroid-induced hyperglycemia. * Pt's PO meds held on admission and pt initiated on SQ basal/bolus insulin. * Pharmacy will continue to follow and adjust regimen as indicated. PLAN FOR INPATIENT GLYCEMIC CONTROL: * Hold outpatient oral diabetes medications * Basal insulin * Lantus 30 units SQ x1 dose, will re-evaluate in the morning * Bolus insulin * NovoLog per scale ACHS or Q6hrs while NPO * Goal Range: Low 110 mg/dL - High 140 mg/dL * Correction Factor: 25 mg/dL/unit * Nutritional / Prandial insulin per carb ratio of 1 unit per 8 grams CHO consumed
[2023-10-08] MEDS: INSULIN ASPART PER UNIT CHARGE SC SCH (12:29)
[2023-10-08] MEDS: LANTUS PER UNIT CHARGE SC ONE (12:30)
[2023-10-08] MEDS: oxyCODONE HCL IR 5 MG TAB (IMMEDIATE RELEASE) PO PRN (16:58)
[2023-10-08] MEDS: MAGNESIUM OXIDE 400 MG TAB PO SCH (21:09)
[2023-10-08] MEDS: SENNA 8.6 MG TAB PO SCH (21:09)
[2023-10-08] MEDS: LOSARTAN POTASSIUM 50 MG TAB PO SCH (21:09)
[2023-10-09] MEDS: INSULIN ASPART PER UNIT CHARGE SC SCH (00:02)
--- NOTE | 2023-10-09 06:29 | Orthopedic Progress Note ---
Date of Service October 09, 2023 Assessment & Plan (1) Status post right knee replacement: Overall he is doing very well. He is not having much pain in the right knee. He will be seen by physical therapy today for ambulation and range of motion exercises. The dressing can be changed after physical therapy today. He is on aspirin for DVT prophylaxis. He can be discharged home later today. He will follow-up orthopedics in 2 weeks. Subjective Michael was seen and examined at bedside this morning. Overall he is doing very well. He is not having much pain in the right knee. He has been up and ambulating to the bathroom. He has no complaints.. Review of Systems All systems reviewed & are unremarkable except as noted in HPI & below. Physical Exam On physical examination of the right knee, the dressing is clean and dry. His leg is out full extension. He has active dorsiflexion plantarflexion of his right ankle.. Results & Data Results & Data Laboratory Results . Diagnostic Findings Postoperative x-rays of the right knee show the prosthesis to be in anatomic alignment without any evidence of fracture complication, or loosening.. PG Care Time/CCT Total # of Minutes Spent Total Time Spent with Patient: Total time spent is greater than 50% in coordination of care (as documented) at patient's floor/unit and/or counseling patient: Coding Level of Care Code 73625 Post Operative Follow-Up Diagnoses Status post right knee replacement Z96.651
--- NOTE | 2023-10-09 06:30 | Discharge Summary ---
Date of Service October 09, 2023 Principal Diagnosis Same as "Discharge Diagnosis" noted below under Discharge Instructions. Discharge Exam On physical examination of the right knee, the dressing is clean and dry. His leg is out full extension. He has active dorsiflexion plantarflexion of his right ankle.. Discharge Data Procedures Performed Operation Date: 10/08/23 07:00 Actual Procedures p Right Total Knee Arthroplasty(Right) - Mariusz Recio DO Ordered Studies 10/08/23 05:00 US - OR guided needle placemen Routine Hospital Course (1) Status post right knee replacement: On October 08, 2023 Michael arrived at [facility] and underwent a right knee replaced without complication. He had a spinal anesthetic. Postoperatively he was started on aspirin for DVT prophylaxis and transferred to the general orthopedic floors. His hospital course was uneventful. On postop day #1, his vital signs were stable and his pain was well-controlled. He was able to participate well with physical therapy doing ambulation and range of motion exercises. He was then discharged home. He will follow-up with orthopedics in 2 weeks. PG Care Time/CCT Total # of Minutes Spent Total Time Spent with Patient: Total time spent is greater than 50% in coordination of care (as documented) at patient's floor/unit and/or counseling patient: Discharge Plan Discharge Items Patient Disposition: Home - Self-Care Reason For Visit: Degenerative Joint Disease Right Knee Discharge Diagnosis: Right knee replacement Activity: Per Instructions section Non-emergency contact: Surgeon Call non-emergency contact if: your wound has increased redness and your wound has increased drainage Follow-up/Referrals: Melissa Mora DO [Primary Care Provider] - Diet: Regular Addtl Attending Provider Instructions: Activity and Therapy Recommendations: * If you are using [facility] then therapy will be provided at your home until they feel you have accomplished all of your goals. * If you are using [facility] then Physical Therapy will be provided until they feel you are ready to start Outpatient Physical Therapy. * If you are not using home therapy then Outpatient Physical Therapy should start about 3-5 days from your day of surgery. Therapy will last about 6-10 weeks * It is important not to put a pillow under your knee when you are relaxing or sleeping. It is just as important to make sure you are getting your knee perfectly straight as it is to regain your knee bend. * You were shown a series of exercises in the hospital. Do these exercises three times each day including the exercises you were shown in physical therapy. * Get up and walk several times each day. For the first four weeks, try not to stand or walk for more than one hour at a time. If you do stand or walk for more than one hour, you will not hurt anything, but your leg will likely swell. * As you feel comfortable, you may change from the walker or crutches to a cane and then to independent walking. Medications: * Narcotic You will likely be sent home from the hospital with a prescription for the narcotic pain medication that worked best throughout your stay. * Cefadroxil -take the antibiotic twice a day for 10 days to help prevent infection. * Aspirin Most patients will be required to take Aspirin 81mg twice a day for 6 weeks after surgery. This is obtained [id number] and a prescription is not necessary. * Other medications may be prescribed for specific circumstances. If you have any questions, please call the office at . * Resume previous home medications unless otherwise instructed TEDs/Elastic Stockings: The white elastic stockings help limit swelling and prevent blood clots from forming in your legs.~ The more you wear them, the more they work. Wear them for six weeks. Dressing Care: The dressing can be changed after physical therapy on postop day #1. Daily dry dressing changes for a few days, especially if the incision is still draining some. If the incision is not draining then you may leave the gayle open to air. If there is a little bit of drainage or if the gayle are getting stuck on your clothing then cover the incision with a dry dressing. The gayle will be removed at your 2 week follow-up appointment. Showering: You may shower 5 days from the day of surgery as long as the incision is no longer draining. You may shower with the gayle exposed. Let soapy water run over the gayle and pat them dry. Do not scrub or soak the incision. Things To Watch For: * Drainage from the incision site that occurs more than one week after your surgery. * Increased redness at the incision site. * Fever above 102 degrees Fahrenheit. * Unusual chest pain or shortness of breath. * Call [facility] at with any of the above problems Follow-Up Visit: Follow-up with Dr. Recio's PA (Mariusz Chase) 2-3 weeks after your day of surgery. He will remove your gayle and answer any questions. If you have any additional questions or concerns, Dr Recio is usually in the office at the same time and will be available An appointment was probably scheduled when you signed-up for surgery in the office. If you have any questions call Office Instructions: More detailed instructions as well as Frequently Asked Questions were provided in a folder by our office when you signed-up for surgery. Please review these instructions when you get home. If you have any further questions or concerns, please feel free to call the office at [phone] Pending Studies at Discharge: No Stand-Alone Forms: My [facility] hopTo, Smoking Cessation Medications and DC Order Prescriptions: New oxycodone 5 mg Tablet 5 mg PO Q4H PRN (Reason: pain) Qty: 30 0RF cefadroxil 500 mg capsule 500 mg PO BID 10 Days Qty: 20 0RF Continued (DME) FreeStyle Lite Strips Strip See Dose Instructions .ROUTE .MEDSUPPLY Qty: 200 3RF Rx Instructions: Test blood sugars 1-2 times a day metformin 500 mg tablet extended release 24 hr 1,000 mg PO BID Qty: 360 3RF Farxiga 10 mg tablet 10 mg PO QAM Qty: 30 5RF losartan 100 mg tablet 100 mg PO QPM Qty: 90 3RF gabapentin 300 mg capsule 300 mg PO .qhs Qty: 90 1RF meloxicam 15 mg tablet 15 mg PO QAM Qty: 30 1RF (DME) lancets [FreeStyle Lancets] 28 gauge misc See Dose Instructions .ROUTE .MEDSUPPLY Qty: 25 Rx Instructions: Test blood sugars 1-2 times a day (DME) blood-glucose meter [FreeStyle [place]] Kit See Rx Instructions .Route Qty: 1 0RF Rx Instructions: As directed test 1-2 times daily dx E11.9 magnesium oxide 400 mg magnesium tablet 400 mg PO PM rosuvastatin [Crestor] 5 mg tablet 5 mg PO QAM Rx Instructions: for cholesterol Changed aspirin 81 mg tablet,delayed release (DR/EC) 81 mg PO BID 42 Days Qty: 0 0RF Discharge Orders: Discharge Order (Routine); Ordered 10/09/23 Ordered By: Mariusz Recio Admission Data Admit Date/Time: 10/08/23 08:25 Attending Provider: Mariusz Recio Admit Provider: Mariusz Recio Primary Care Provider: Melissa Mora
[2023-10-09] MEDS: LANTUS PER UNIT CHARGE SC SCH (08:08)
== END 2023-10-09 13:50 | disposition home or self-care (01) ==
LOC: ASU 04:57 → 3E 04:57

== ENCOUNTER 2024-07-14 06:59 | Observation (INO) ==
--- NOTE | 2024-06-08 13:55 | PAT Medication Instructions ---
Medication Instructions Date of Service June 08, 2024 Home Medications Medication Instructions Recorded blood-glucose meter (FreeStyle #1 ea 07/07/21 [place] kit) blood sugar diagnostic (FreeStyle #200 ea 07/17/22 Lite Strips) losartan 100 mg tablet 100 mg PO QPM #90 tabs 08/03/23 metformin 500 mg tablet,extended 1,000 mg (2 x 500 mg) PO BID #360 02/10/24 release 24 hr tabs rosuvastatin 5 mg tablet (Crestor) 5 mg PO QAM #90 tabs 03/22/24 meloxicam 15 mg tablet 15 mg PO QAM #30 tabs 03/23/24 dapagliflozin propanediol 10 mg 10 mg PO QAM #30 tabs 04/18/24 tablet (Farxiga) albuterol sulfate 90 mcg/actuation 2 puff inhalation Q6H PRN SOB, 05/05/24 aerosol inhaler wheezing #8.5 grams gabapentin 300 mg capsule 300 mg PO HS #90 caps 05/31/24 montelukast 10 mg tablet 10 mg PO DAILY #90 tabs 05/31/24 sertraline 50 mg tablet 50 mg PO DAILY #90 tabs 05/31/24 magnesium oxide 400 mg PO QPM losartan 100 mg tablet 100 mg PO QPM metformin 500 mg tablet,extended release 24 hr 1,000 mg (2 x 500 mg) PO BID rosuvastatin 5 mg tablet (Crestor) 5 mg PO QAM meloxicam 15 mg tablet 15 mg PO QAM aspirin 81 mg chewable tablet 81 mg PO DAILY mecobalamin (vitamin B12) 1,000 mcg chewable tablet 1,000 mcg PO DAILY dapagliflozin propanediol 10 mg tablet (Farxiga) 10 mg PO QAM albuterol sulfate 90 mcg/actuation aerosol inhaler 2 puff inhalation Q6H PRN SOB, wheezing gabapentin 300 mg capsule 300 mg PO HS montelukast 10 mg tablet 10 mg PO DAILY sertraline 50 mg tablet 50 mg PO DAILY ASK your surgeon for instructions meloxicam 15 mg tablet 15 mg PO QAM ASK your prescriber and surgeon aspirin 81 mg chewable tablet 81 mg PO DAILY STOP taking 3 days before surgery dapagliflozin propanediol 10 mg tablet (Farxiga) 10 mg PO QAM DO NOT take the morning of surgery metformin 500 mg tablet,extended release 24 hr 1,000 mg (2 x 500 mg) PO BID mecobalamin (vitamin B12) 1,000 mcg chewable tablet 1,000 mcg PO DAILY montelukast 10 mg tablet 10 mg PO DAILY Take morning of surgery With a small sip of water, OTHERWISE NOTHING TO EAT OR DRINK AFTER MIDNIGHT: rosuvastatin 5 mg tablet (Crestor) 5 mg PO QAM albuterol sulfate 90 mcg/actuation aerosol inhaler 2 puff inhalation Q6H PRN SOB, wheezing (use if needed; please bring rescue inhaler with you to hospital day of surgery if possible) sertraline 50 mg tablet 50 mg PO DAILY Take evening before surgery magnesium oxide 400 mg PO QPM losartan 100 mg tablet 100 mg PO QPM metformin 500 mg tablet,extended release 24 hr 1,000 mg (2 x 500 mg) PO BID albuterol sulfate 90 mcg/actuation aerosol inhaler 2 puff inhalation Q6H PRN SOB, wheezing (if needed) gabapentin 300 mg capsule 300 mg PO HS Other Notes If you have any questions please call us at [phone] or [phone] or [phone] or [phone]
--- NOTE | 2024-06-20 09:02 | Anesthesiology Consultation ---
Date of Service June 20, 2024 Assessment & Plan (1) Encounter for pre-operative examination: - Check BSG DOS - Infectious disease screening: Per assessment on 06/20/24- No known recent infectious disease contacts or current infectious disease symptoms. - Outpatient joint assessment: Pt currently scheduled for inpatient pathway. If surgeon requests review for outpatient joint pathway, patient is not recommended candidate for outpatient joint program from anesthesia standpoint based on available information. - S/P Right TKA (10/08/23): SAB at L3-4 (1 attempt) + regional at [facility] Chart Review Chart Review: Acceptable Risk for Surgery and Patient seen in Pre Admission Testing Teaching & Discussion Pre-Anesthesia Teaching/Discussion Notes: Instructed NPO after midnight before surgery,except medications with 15 cc of water. Medication instructions provided according to the PAT guidelines. History Surgery Operation Date: 07/14/24 07:00 Proposed Procedures p Right Anterior Total Hip Arthroplasty - Mariusz Recio, Height/Weight Height: 5 ft 4.5 in Weight: 100.7 kg Allergies Allergy/AdvReac Type Severity Reaction Status Date / Time No Known Allergies Allergy Verified 06/05/24 13:41 Medications Home Medications Medication Instructions Recorded Confirmed Last Taken lancets 28 gauge (FreeStyle #25 ea 02/03/19 05/31/24 Unknown Lancets) magnesium oxide 400 mg PO QPM 08/22/19 06/05/24 02/09/24 blood-glucose meter (FreeStyle #1 ea 07/07/21 05/31/24 Unknown Fenwick kit) blood sugar diagnostic (FreeStyle #200 ea 07/17/22 05/31/24 Unknown Lite Strips) losartan 100 mg tablet 100 mg PO QPM #90 tabs 08/03/23 06/05/24 02/09/24 metformin 500 mg tablet,extended 1,000 mg (2 x 500 mg) PO BID #360 02/10/24 06/05/24 Unknown release 24 hr tabs rosuvastatin 5 mg tablet (Crestor) 5 mg PO QAM #90 tabs 03/22/24 06/05/24 Unknown meloxicam 15 mg tablet 15 mg PO QAM #30 tabs 03/23/24 06/05/24 Unknown aspirin 81 mg chewable tablet 81 mg PO DAILY 03/24/24 06/05/24 Unknown mecobalamin (vitamin B12) 1,000 1,000 mcg PO DAILY 03/24/24 06/05/24 Unknown mcg chewable tablet dapagliflozin propanediol 10 mg 10 mg PO QAM #30 tabs 04/18/24 06/05/24 Unknown tablet (Farxiga) albuterol sulfate 90 mcg/actuation 2 puff inhalation Q6H PRN SOB, 05/05/24 06/05/24 Unknown aerosol inhaler wheezing #8.5 grams gabapentin 300 mg capsule 300 mg PO HS #90 caps 05/31/24 06/05/24 Unknown montelukast 10 mg tablet 10 mg PO DAILY #90 tabs 05/31/24 06/05/24 Unknown sertraline 50 mg tablet 50 mg PO DAILY #90 tabs 05/31/24 06/05/24 Unknown Past Medical History Medical History Allergic rhinitis Aortic root dilatation Echo 06/2021: "Mild aortic root dilatation" Asthma Bilateral nephrolithiasis Per records, patient unaware Brain aneurysm Under surveillance, stable [facility] neurology- next imaging 09/2024 per pt Chronic cough Coronary artery calcification Diabetes Dyslipidemia Fatty liver History of colon polyps History of COVID-19 (06/2021) Hospitalized x5 days d/t low O2 sats- resolved HTN (hypertension) Lumbar radiculopathy Myopathy Nocturnal hypoxemia NSVT (nonsustained ventricular tachycardia) Hx Osteoarthritis Severe obesity (BMI 35.0-39.9) with comorbidity Splenic artery aneurysm Chest CT 11/2021: 2.2 cm peripherally calcified splenic artery aneurysm Exercise / Class Metabolic Activity III < 4 Walking/Shop/Light housework Past Family History Family History Father Colon cancer Diabetes Stroke Other Family history non-contributory Denies family history of Ovarian cancer Prostate cancer Myocardial infarction Breast cancer Lung cancer Past Surgical History Surgical History History of repair of patent ductus arteriosus (1961) Age 5 History of total right knee replacement Right TKA (10/08/23): SAB at L3-4 (1 attempt) + regional at [facility] Hx of colonoscopy with polypectomy [facility] (02/10/24) Hx of inguinal hernia repair Left (as baby) S/P carpal tunnel release (11/2021) + cubital tunnel release, left side Past Anesthesia History No Hx of Anesthesia Complications and No Family Hx of Anesthesia Complications History of PONV No Hx of PONV and No Hx of Motion Sickness Social History Smoking Status: Never smoker Do You Dip or Chew Tobacco: No Hx Alcohol Use: Yes Alcohol type: beer alcohol intake frequency: holidays/special occasions only Hx Substance Use: No substance use type: does not use Review of Systems Patient denies chest pain, shortness of breath, fever, chills, cough, wheezing, palpitations. Physical Exam Vital Signs BP 154/82 P 75 TEMP 97.7 SP02 96%RA RESP 18 Physical Full cervical extension range of motion. Full TMJ range of motion. TMD > 3.5 finger breaths Mallampati Score II Dentition: missing molars Lungs: clear throughout to auscultation Cardiac: regular rate and rhythm, no murmurs noted Spine: normal Carotid arteries: negative bruit Extremities: no LE edema Lab Results Anesthesia Preop Results Results Anesthesia Widget: WBC 5.64 K/ul (4.8-10.8) 05/31/24 Hgb 14.4 g/dl (14.0-18.0) 05/31/24 Hct 43.4 % (42.0-52.0) 05/31/24 Plt 197 K/uL (130-400) 05/31/24 Na 141 mmol/L (136-145) 06/20/24 K 4.2 mmol/L (3.5-5.1) 06/20/24 Cl 106 mmol/L (98-107) 06/20/24 CO2 28 mmol/L (21-32) 06/20/24 BUN 20 mg/dl (6-23) 06/20/24 Creat 0.60 mg/dl (0.6-1.4) 06/20/24 Glucose Level 148 mg/dl (70-99(Fasting)) H 06/20/24 PT 10.3 Seconds (9.0-12.0) 06/20/24 PTT 28 Seconds (21-31) 06/20/24 INR 0.9 (0.9-1.1) 06/20/24 HA1c 6.9 % (4.5-5.6) H 05/31/24 Blood Type A Positive 06/20/24 Antibody Screen NEGATIVE 06/20/24 Testing Electrocardiogram Date: 09/15/23 Sinus rhythm at [address] and T wave abnormality, consider lateral ischemia. No significant change compared to 11/11/2021. *EKG reviewed by [facility] PCP at 10/06/23 preop evaluation visit prior to Right TKA done 10/08/23 at [facility]- patient felt to tbe medically optimized for surgery at that time.* Chest X-Ray Date: 09/15/23 FINDINGS: No lines and tubes are seen. The cardiomediastinal silhouette is stable. The lungs are clear. No evidence of pleural effusion or pneumothorax. D egenerative changes are seen in the spine. IMPRESSION: No acute chest disease. Echocardiogram Date: 06/23/21 EF 55 to 60%. Mild aortic root dilatation. Aortic root diameter 4.0 cm. Mild AR. Mild TR. RVSP normal. LV wall motion is normal.
[~2024-07-14 06:59] MED LIST changes: -AMLO-110 PO; -ATOR-22 PO; +BUPIVACAINE 0.5 % 5 MG/1 ML PF 10ML VIAL ONE; -GUAI1TAB55 PO; -IBUP-1050 PO; -LEVO1TAB35 PO; -LOSA1TAB38 PO; -METF500T5 PO; -PROAIR INH
[2024-07-14] MEDS ORDERED: PROPOFOL IV EMULSION 10 MG/ML 20 ML VIAL IV ONE (07:18)
[2024-07-14] MEDS ORDERED: MIDAZOLAM HCL 1 MG/ML 2ML VIAL ONE (07:18)
[2024-07-14] MEDS: GABAPENTIN 300 MG CAP PO SCH ×2 (07:37→20:24)
[2024-07-14] MEDS: ACETAMINOPHEN 500 MG TAB PO SCH ×2 (07:37→14:25)
[2024-07-14] MEDS: FAMOTIDINE 20 MG TAB PO SCH (07:37)
[2024-07-14] MEDS: LR 60ML/HR IV SCH (07:38)
[2024-07-14] MEDS: dexAMETHasone**PF** 10 MG/ML VIAL IV SCH (07:50)
[2024-07-14] MEDS: LR 500ML BOLUS, THEN 15ML/HR IV SCH (07:50)
--- NOTE | 2024-07-14 08:06 | History & Physical Bridge Note ---
Date of Service July 14, 2024 History & Physical Bridge Note I have examined the patient, reviewed the History & Physical and in the interval since the performance of the History & Physical I have noted the following changes of clinical significance: no changes noted
[2024-07-14] MEDS ORDERED: PROMETHAZINE HCL 6.25 MG in SODIUM CHLORIDE 0.9% 50 ML IV PRN (08:41)
[2024-07-14] MEDS ORDERED: ATROPINE SULFATE 0.1 MG/ML 10ML SYR IV PRN (08:41)
[2024-07-14] MEDS ORDERED: fentaNYL citrate PF 100 MCG/2 ML VIAL IV PRN (08:41)
[2024-07-14] MEDS ORDERED: ONDANSETRON INJ 2 MG/ML 2 ML VIAL IV PRN ×2 (08:41→13:25)
[2024-07-14] MEDS ORDERED: ePHEDrine sulfate 50 MG/ML AMP IV PRN (08:41)
[2024-07-14] MEDS: TRANEXAMIC ACID 1,000 MG **IV Pre-op IV SCH (08:50)
[2024-07-14] MEDS: ceFAZolin 2000MG 2,000 MG/15 ML SYR IV SCH (09:08)
[2024-07-14] MEDS ORDERED: ePHEDrine sulfate 50 MG/ML AMP ONE (09:43)
[2024-07-14] MEDS: ROPIV 0.5% 246mg, Ketorolac 30mg, EPINEPHrine 0.5mg in NSS INFIL SCH (09:53)
[2024-07-14] MEDS: ORTHO JOINT ANESTHETIC ONE (09:54)
[2024-07-14] MEDS: TRANEXAMIC ACID 1,000 MG **IV Intra-op IV SCH (10:12)
--- NOTE | 2024-07-14 10:16 | Operative Report ---
PG Post Operative Report Pre & Post Diagnosis Operation Date: 07/14/24 09:00 Pre-Op Diagnosis: Right hip arthritis. Post-Op Diagnosis: Right hip arthritis. I identified the patient and participated in the time-out.: Yes Procedure Operation Date: 07/14/24 09:00 Actual Procedures p Right Anterior Total Hip Arthroplasty, Uncemented(Right) - Mariusz Recio DO Surgeon Mariusz Recio DO Production Stage Manager Rod López PA-C Estimated Blood Loss 250 Findings Consistent with Post-Op Diagnosis Specimens Right humeral head Description of Procedure Implants used I used a ZimmerBiomet total hip arthroplasty system with a size 3 standard offset Avenir Complete stem, a 54 mm G7 cup with a 25mm screw, an E1 polyethylene liner, a 40 mm ceramic head with a 0 neck. Michael arrived at the hospital for the above procedure. He was seen in the preoperative holding area and the operative extremity was identified and signed. He was given a spinal anesthetic, a preoperative antibiotic, and TXA. He was then taken back to the operating room and laid on the table in the supine position. He was given basic sedation. The operative leg was secured to a Puristst leg positioner. The hip was then prepped and draped in sterile fashion. A timeout was done and the patient and the operative extremity was properly identified. An anterior approach was used. Dissection was taken down through the fascia and the tensor muscle belly was retracted laterally and the rectus was retracted medially. The circumflex vessels were identified and ligated. The capsule was then incised and tagged for later repair. The femoral neck was then cut and the femoral head was removed. The acetabulum was exposed. Time was spent doing a complete circumferential labral release. Sequential reaming of the acetabulum up to a size 53 reamer was done. Final reamings were done under fluoroscopy to ensure appropriate version. A Biomet 54 mm G7 cup was then impacted into place. A single 25 mm screw was placed. The E1 polyethylene liner was then snapped into place. Surrounding soft tissues were then injected with 100 cc of an orthopedic pain control cocktail. The proximal femur was then exposed. Sequential broaching up to a size 3 broach was done. Off that broach a size 40 head with a 0 neck was trialed. The hip was reduced and fluoroscopic images showed anatomic alignment of the implants in acceptable length. The broach was removed. The final size 3 standard offset Avenir Complete stem was then impacted into place. A ceramic 40 mm head with a 0 neck was then impacted onto the stem and the hip was reduced. Final fluoroscopic images showed anatomic alignment of the hip. The capsule was then closed with #1 Vicryl suture. A dilute betadyne lavage was then done for 3 minutes. The joint was then irrigated with normal saline solution. The fascia was closed with #1 PDS suture. Skin was closed with 2-0 Vicryl, gayle, and a Silverlon dressing. He was then transferred to a hospital bed and taken to the post anesthesia care unit in stable condition. He tolerated the procedure well. Rod López PA-C, was present for the entire procedure. He was critical for patient positioning, prepping, draping, retraction exposure, wound closure and application of sterile dressing. I attest to the content of the Intraoperative Record and any orders documented therein. Any exceptions are noted below.
--- NOTE | 2024-07-14 11:14 | XRay Report ---
XR hip 1V RT w pelvis CLINICAL HISTORY: IN PACU - Post Surgical COMPARISON: None FINDINGS: Right hip prosthesis shows no hardware complication. There is expected soft tissue gas and skin gayle are present laterally. IMPRESSION: Unremarkable postoperative exam. ACT 112: Negative or not required by law. Electronically signed by: Navarro Marmolejo M.D. 07/14/2024 11:13 AM
--- NOTE | 2024-07-14 11:42 | Fluoroscopy Report ---
FL hip RT 1V CLINICAL HISTORY: RIGHT ANTERIOR HIP COMPARISON STUDY: None FLUOROSCOPY TIME: 20 seconds FLUOROSCOPY IMAGES: 1 EXPOSURE DOSE: 2.6 mGy FINDINGS: Fluoroscopy was provided for right hip prosthesis. IMPRESSION: Intraoperative fluoroscopy. ACT 112: Negative or not required by law. Electronically signed by: Navarro Marmolejo M.D. 07/14/2024 11:41 AM
[2024-07-14] MEDS ORDERED: MAGNESIUM HYDROXIDE SUSP 30 ML UDC PO PRN (13:25)
[2024-07-14] MEDS ORDERED: ALBUTEROL HFA 8 GM INHALER INH PRN (13:25)
[2024-07-14] MEDS ORDERED: HYDROmorphone INJ 0.5 MG/0.5 ML SYR IV PRN (13:25)
[2024-07-14] MEDS ORDERED: PHARMACY GLYCEMIC MGMT CONSULT PRN (13:25)
[2024-07-14] MEDS ORDERED: NALOXONE HCL 0.4 MG/1 ML VIAL/CARP IV PRN (13:25)
[2024-07-14] MEDS ORDERED: bisacodyL 10 MG SUPP PR PRN (13:25)
[2024-07-14] MEDS ORDERED: METOCLOPRAMIDE HCL INJ 5 MG/ML 2 ML VIAL IV PRN (13:25)
[2024-07-14] MEDS: KETOROLAC TROMETHAMINE 15 MG/ML VIAL IV SCH (14:25)
[2024-07-14] MEDS ORDERED: GLUCOSE 10 TAB/TUBE PO PRN (14:30)
[2024-07-14] MEDS ORDERED: GLUCAGON FOR INJ 1 MG VIAL SQ PRN (14:30)
[2024-07-14] MEDS ORDERED: GLUCOSE 40% GEL 15 GM TUBE PO PRN (14:30)
[2024-07-14] MEDS ORDERED: DEXTROSE 50% 50 ML SYRINGE IV PRN (14:30)
[2024-07-14] MEDS ORDERED: CARBOHYDRATES FOR HYPOGLYCEMIA PO PRN (14:30)
--- NOTE | 2024-07-14 14:41 | Anesthesiology Progress Note ---
Date of Service July 14, 2024 Anesthesia Post Procedure Vital Signs Vital Signs: Temp Pulse Pulse Resp BP BP Pulse Ox 07/14/24 14:19 36.5 C 96 H 18 168/83 H 94 07/14/24 13:43 36.3 C L 83 18 151/82 H 94 07/14/24 13:15 36.5 C 80 18 150/75 H 95 07/14/24 13:05 90 14 141/83 H 95 07/14/24 12:35 78 15 148/66 H 94 07/14/24 12:05 75 20 131/63 94 07/14/24 11:50 75 18 131/72 98 07/14/24 11:35 68 20 135/70 96 07/14/24 11:20 78 15 114/51 L 94 07/14/24 11:05 36.4 C L 81 13 133/74 93 07/14/24 10:55 82 15 122/68 95 07/14/24 10:45 76 13 125/62 98 07/14/24 10:39 36.2 C L 77 14 115/60 93 07/14/24 07:35 36.8 C 77 20 146/94 H 95 O2 Del Method O2 Flow Rate 07/14/24 14:19 Room Air 07/14/24 13:43 Room Air 07/14/24 13:15 Room Air 07/14/24 13:05 Room Air 07/14/24 12:35 Room Air 07/14/24 12:05 Room Air 07/14/24 11:50 Room Air 07/14/24 11:35 Room Air 07/14/24 11:20 Room Air 07/14/24 11:05 Room Air 07/14/24 10:55 Room Air 07/14/24 10:45 Oxymask 5 07/14/24 10:39 Oxymask 5 07/14/24 07:35 Room Air Pain Intensity Right Hip: Pain Intensity: 10 Transfer of Care Handoff Completed per policy Notes Mental Status: alert / awake / arousable and participated in evaluation Patient Amnestic to Procedure: Yes Nausea / Vomiting: adequately controlled Pain: adequately controlled Airway Patency, RR, SpO2: stable & adequate BP & HR: stable & adequate Hydration State: stable & adequate Neuraxial Anesthesia: was administered and sensory block is resolving Anesthetic Complications: no major complications apparent and Pt Satisfied with anesthetic care
--- NOTE | 2024-07-14 15:41 | Pharmacy Report ---
Pharmacy Glycemic Short Note 2 - Date of Service July 14, 2024 - Glycemic Short BSG Results (Last 24 hours): 07/14/24 10:41 POC Glucose 219 H OUTPATIENT ANTIDIABETIC REGIMEN: Metformin 1000 mg PO BID Dapagliflozin 10 mg PO qAM A1c = 6.9% (05/31/24) ASSESSMENT: * Michael is a 68 yo T2DM s/p right total hip arthroplasty. * Decent outpatient control on two oral agents. These will be held for admission. * Post-op BSG significantly elevated at 219 mg/dL. Patient did dexamethasone 10 mg IV in pre-op. Anticipate short term steroid induced hyperglycemia. * Will give a one time dose of Lantus (~0.2 units/kg) and start novolog based on weight + stress 3. Overnight checks with coverage. PLAN FOR INPATIENT GLYCEMIC CONTROL: * Hold outpatient oral diabetes medications * Basal insulin * Lantus 20 units SQ x 1 dose * Bolus insulin * NovoLog per scale ACHS or Q6hrs while NPO * Goal Range: Low 110 mg/dL - High 140 mg/dL * Correction Factor: 20 mg/dL/unit * Nutritional / Prandial insulin per carb ratio of 1 unit per 6 grams CHO consumed
[2024-07-14] MEDS: INSULIN ASPART PER UNIT CHARGE SC SCH (17:26)
[2024-07-14] MEDS: LANTUS PER UNIT CHARGE SC SCH (17:27)
[2024-07-14] MEDS: ceFAZolin 1000MG 1,000 MG/7.5 ML SYR IV SCH (17:30)
[2024-07-14] MEDS: oxyCODONE HCL IR 5 MG TAB (IMMEDIATE RELEASE) PO PRN (17:56)
[2024-07-14] MEDS: LOSARTAN POTASSIUM 50 MG TAB PO SCH (20:24)
[2024-07-14] MEDS: SENNA 8.6 MG TAB PO SCH (20:24)
[2024-07-14] MEDS: ASPIRIN 81 MG ECTAB PO SCH (20:24)
[2024-07-14] MEDS: DOCUSATE SODIUM 100 MG CAP PO SCH (20:24)
[2024-07-14] MEDS ORDERED: metFORMIN HCL ER 500 MG TABCR PO SCH (21:00)
[2024-07-15] MEDS: INSULIN ASPART PER UNIT CHARGE SC SCH (00:26)
[2024-07-15 04:06] VITALS: RESP 18
[2024-07-15 04:50] VITALS: O2SAT 94
--- NOTE | 2024-07-15 07:26 | Orthopedic Progress Note ---
Date of Service July 15, 2024 Assessment & Plan (1) Status post right hip replacement: Overall he is doing very well. He is not having much pain on the right hip. He will be seen by physical therapy today for ambulation and range of motion exercises. He is on aspirin for DVT prophylaxis. The nursing staff can change his dressing to dry gauze and tape after therapy today. He can be discharged to home later today. He will follow-up with orthopedics in 2 weeks. Subjective Michael was seen and examined at bedside this morning. Overall he is doing fairly well. He is not having much pain in the right hip. He did have some drainage from his dressing last night. His dressing was changed a couple of times. He has no other complaints.. Review of Systems All systems reviewed & are unremarkable except as noted in HPI & below. Physical Exam On physical exam of the right hip, the dressing is saturated again. He is able to stand easily at bedside. He is neurovascular intact.. Results & Data Results & Data Laboratory Results . Diagnostic Findings Postoperative x-rays of the right hip show the prosthesis to be in anatomic alignment without any evidence of fracture complication, or loosening.. PG Care Time/CCT Total # of Minutes Spent Total Time Spent with Patient: Total time spent is greater than 50% in coordination of care (as documented) at patient's floor/unit and/or counseling patient: Coding Level of Care Code 86461 Post Operative Follow-Up Diagnoses Status post right hip replacement Z96.641
--- NOTE | 2024-07-15 07:27 | Discharge Summary ---
Date of Service July 15, 2024 Principal Diagnosis Same as "Discharge Diagnosis" noted below under Discharge Instructions. Discharge Exam On physical exam of the right hip, the dressing is saturated again. He is able to stand easily at bedside. He is neurovascular intact.. Discharge Data Procedures Performed Operation Date: 07/14/24 09:00 Actual Procedures p Right Anterior Total Hip Arthroplasty, Uncemented(Right) - Mariusz Recio DO Ordered Studies 07/14/24 09:00 FL hip RT 1V Routine Hospital Course (1) Status post right hip replacement: On July 14, 2024 Michael arrived at [facility] and underwent a right hip replacement without complication. He had a spinal anesthetic. Postoperatively, he was started on aspirin for DVT prophylaxis and transferred to the general orthopedic floors. His hospital course was uneventful. On postop day #1, his vital signs were stable and his pain was well-controlled. He was able to participate well with physical therapy doing ambulation and range of motion exercises. He was then discharged home. He will follow with orthopedics in 2 weeks. PG Care Time/CCT Total # of Minutes Spent Total Time Spent with Patient: Total time spent is greater than 50% in coordination of care (as documented) at patient's floor/unit and/or counseling patient: Discharge Plan Discharge Items Patient Disposition: Home - Self-Care Reason For Visit: Right Hip Arthritis Discharge Diagnosis: Right hip replacement Activity: Per Instructions section Non-emergency contact: Surgeon Call non-emergency contact if: your wound has increased redness and your wound has increased drainage Follow-up/Referrals: Melissa Mora DO [Primary Care Provider] - Diet: Regular Addtl Attending Provider Instructions: Activity and Therapy Recommendations: * If you are using [facility] then therapy will be provided at your home until they feel you have accomplished all of your goals. * If you are using [facility] then Physical Therapy will be provided until they feel you are ready to start Outpatient Physical Therapy. * If you are not using home therapy then Outpatient Physical Therapy should start about 3-5 days from your day of surgery. Therapy will last about 6-10 weeks * You were shown a series of exercises in the hospital. Do these exercises three times each day including the exercises you were shown in physical therapy. * Get up and walk several times each day.~ For the first four weeks, try not to stand or walk for more than one hour at a time. If you do stand or walk for more than one hour, you will not hurt anything, but your leg will likely swell.~~ * As you feel comfortable, you may change from the walker or crutches to a cane and~then to independent walking. Medications: * Narcotic You will likely be sent home from the hospital with a prescription for the narcotic pain medication that worked best throughout your stay. * Cefadroxil -take the antibiotic twice a day for 10 days to help prevent infection. * Aspirin Most patients will be required to take Aspirin 81mg twice a day for 6 weeks after surgery. This is obtained [id number] and a prescription is not necessary. * Other medications may be prescribed for specific circumstances. If you have any questions, please call the office at . * Resume previous home medications unless otherwise instructed TEDs/Elastic Stockings: The white elastic stockings help limit swelling and prevent blood clots from forming in your legs. The more you wear them, the more they work. Wear them for six weeks. Dressing Care: Daily dry dressing changes for 5 days. If the incision is not draining then you may leave the gayle open to air. If there is a little bit of drainage or if the gayle are getting stuck on your clothing then cover the incision with a dry dressing. The gayle will be removed at your 2 week follow-up appointment. Showering: Do not shower for 5 days from the day of surgery. On day 5, you can shower with the gayle exposed. Let soapy water run over the gayle and pat them dry. Do not scrub or soak the incision. Diet: You may resume your previous diet. Things To Watch For: * Drainage from the incision site that occurs more than one week after your surgery. * Increased redness at the incision site. * Fever above 102 degrees Fahrenheit. * Unusual chest pain or shortness of breath. * Call [facility] at with any of the above problems Follow-Up Visit: Follow-up with Dr. Recio's office 2-3 weeks after your day of surgery. We will remove your gayle and answer any questions. If you have any additional questions or concerns, Dr Recio is usually in the office at the same time and will be available An appointment was probably scheduled when you signed-up for surgery in the office. If you have any questions call Office Instructions: More detailed instructions as well as Frequently Asked Questions were provided in a folder by our office when you signed-up for surgery. Please review these instructions when you get home. If you have any further questions or concerns, please feel free to call the office at [phone] Pending Studies at Discharge: No Stand-Alone Forms: My [facility], Smoking Cessation Medications and DC Order Prescriptions: New cefadroxil 500 mg capsule 500 mg PO BID 10 Days Qty: 20 0RF oxycodone 5 mg tablet 5 mg PO Q6H PRN (Reason: pain) Qty: 30 0RF aspirin 81 mg Tablet,Delayed Release (Dr/Ec) 81 mg PO BID 42 Days Qty: 84 0RF Continued (DME) FreeStyle Lite Strips Strip See Dose Instructions .ROUTE .MEDSUPPLY Qty: 200 3RF Rx Instructions: Test blood sugars 1-2 times a day losartan 100 mg tablet 100 mg PO QPM Qty: 90 3RF metformin 500 mg tablet extended release 24 hr 1,000 mg PO BID Qty: 360 3RF rosuvastatin [Crestor] 5 mg tablet 5 mg PO QAM Qty: 90 3RF Rx Instructions: for cholesterol meloxicam 15 mg tablet 15 mg PO QAM Qty: 30 1RF Farxiga 10 mg tablet 10 mg PO QAM Qty: 30 5RF albuterol sulfate 90 mcg/actuation HFA aerosol inhaler 2 puff INHALATION Q6H PRN (Reason: SOB, wheezing) Qty: 8.5 1RF (DME) lancets [FreeStyle Lancets] 28 gauge misc See Dose Instructions .ROUTE .MEDSUPPLY Qty: 25 Rx Instructions: Test blood sugars 1-2 times a day (DME) blood-glucose meter [FreeStyle Coleman] Kit See Rx Instructions .Route Qty: 1 0RF Rx Instructions: As directed test 1-2 times daily dx E11.9 magnesium oxide 400 mg magnesium tablet 400 mg PO QPM aspirin 81 mg tablet,chewable 81 mg PO DAILY mecobalamin (vitamin B12) 1,000 mcg tablet,chewable 1,000 mcg PO DAILY gabapentin 300 mg capsule 300 mg PO HS Qty: 90 1RF sertraline 50 mg tablet 50 mg PO DAILY Qty: 90 3RF montelukast 10 mg tablet 10 mg PO DAILY Qty: 90 3RF Discharge Orders: Discharge Order (Routine); Ordered 07/15/24 Ordered By: Mariusz Recio Admission Data Admit Date/Time: 07/14/24 10:43 Attending Provider: Mariusz Recio Admit Provider: Mariusz Recio Primary Care Provider: Melissa Mora
[2024-07-15 07:58] VITALS: BP 109/67; PULSE 62; TEMP 97.5
[2024-07-15] MEDS ORDERED: NON-FORMULARY MEDICATION (Dapagliflozin Propanediol [Farxiga] 10 mg tablet) PO SCH (09:00)
[2024-07-15] MEDS: LANTUS PER UNIT CHARGE SC SCH (09:26)
[2024-07-15] MEDS: MONTELUKAST SODIUM 10 MG TABLET PO SCH (09:26)
[2024-07-15] MEDS: MULTIVITAMIN TAB PO SCH (09:26)
[2024-07-15] MEDS: ROSUVASTATIN CALCIUM 5 MG TAB PO SCH (09:27)
[2024-07-15] MEDS: SERTRALINE HCL 50 MG TABLET PO SCH (09:27)
== END 2024-07-15 12:30 | disposition home or self-care (01) ==
LOC: PACUINP 06:59 → ASU 06:59 → 3N 13:25